=== PATIENT | female | born 1990 | race Caucasian/White ===

== ENCOUNTER 2018-03-02 15:41 | Outpatient (REF) | payer OTHER, SELFPAY ==
--- NOTE | 2018-03-02 15:00 | PAPFT_PTH ---
PATIENT: Angelica Mascorro LOC: [facility] U#:[id number] AGE/SX: 27/F ROOM: RE03/02/[address]: DORA Dunn : 1990 BED: DIS: 03/02/2018 SPEC #: [id number] RECD: 03/02/18 16:50 STATUS: DEEDEE RECarla #: [id number] JAY: 03/02/18 15:[address]: Courtney Chen DEPT: [facility] Cytology RECD BY: Sharlene Horowitz ENTERED: 03/02/18 16:50 SP TYPE: PAPFT PRIETO DR: Bess Day APRN Tissues: 1 - CX/ENDOCX FOR PAP SMEARS Procedures: PAP THIN PREP/UVM Screening Comments: [id number]
== END 2018-03-02 16:01 ==
LOC: LBN 15:41
PROVIDERS: PCP Nurse Practitioner; Visit Provider Nurse Practitioner Family
DX: Z12.4 Encounter for screening for malignant neoplasm of cervix (principal)
CPT/HCPCS: 88142

== ENCOUNTER 2022-06-04 20:48 | Emergency (ER) | payer BC, SELFPAY ==
[2022-06-04 20:50] VITALS: BP 139/78; PULSE 91; RESP 18; TEMP 36.3; O2SAT 100
--- NOTE | 2022-06-04 21:17 | ED.GENADUL_ITS ---
Discharge Plan Disposition Patient Disposition: Home Condition: Stable Discharge Details Clinical Impression: Pharyngitis Primary Care Provider: Morena Dailey ED Provider: Elsy Olivares Discharge Instructions Instructions: Pharyngitis (ED) Additional Instructions: Gargle with warm salt water up to 3 times daily as needed. Please take Tylenol or Ibuprofen with food every 4-6 hours as needed for pain and swelling. You are given a steroid here which should help with the swelling the next 3 days. Your strep swab COVID and flu are negative. Follow up with primary care provider in 3-5 days. Return to ED sooner if any worsening or concerns. Increase oral fluids. Medical Decision Making 31-year-old female presents to the ER with chief complaint of swelling of uvula which she noticed on Monday morning. She also noted some erythemic posterior oropharynx. Today she noticed a little white bump on her uvula. She does have some left ear pain. It is occluded by cerumen. No fever no productive cough. She has had 1 booster for COVID. She is speaking in full sentences lungs are clear to auscultation bilaterally. 10 mg dexamethasone ordered p.o., ibuprofen rapid strep and flu and COVID swab. Strep, flu COVID-negative. Do suspect pharyngitis. Instructed on home care and follow-up care discussed tricked return instructions. This text was generated using [employer] dictation system, please disregard any oddities of phrase or misspellings. HPI General Mode of arrival: ambulatory . Date/Time Provider Initiated Documentation: 06/04/22 20:59 . Limitations to Documentation: no limitations . Information obtained by: patient, RN notes reviewed and old records reviewed . HPI Narrative: 31-year-old female presents to the ER with chief complaint of swelling of uvula which she noticed on Monday morning. She also noted some erythemic posterior oropharynx. Today she noticed a little white bump on her uvula. She does have some left ear pain. It is occluded by cerumen. No fever no productive cough. She has had 1 booster for COVID. She is speaking in full sentences lungs are clear to auscultation bilaterally. Related Data Allergies Allergy/AdvReac Type Severity Reaction Status Date / Time No Known Drug Allergies Allergy Unverified 06/04/22 20:58 General Stated Complaint: GenMedical MARIAH: 4 Review of Systems All systems reviewed & are unremarkable except as noted in HPI and below ENT Ears, Nose, Mouth, and Throat: Reports as per HPI, Reports sore throat and Reports throat swelling Allergic/Immunologic Allergic/Immunologic: Reports throat swelling PFS All Active Problems (Updated 06/04/22 @ 21:49 by Elsy Olivares NP) Pharyngitis (Acute) Oral contraceptive pill surveillance (Acute 06/02/14) Medical History Adult BMI > 30 Family History Mother No problems noted. Father Essential hypertension Brother Asthma Grandfather No problems noted. Grandfather , Lung CA? at age 70. Personal history of malignant neoplasm Lung CA? Grandmother No problems noted. Grandmother No problems noted. Social History Smoking/Tobacco Use Status: Never Smoking risk assessment performed?: Yes Alcohol Intake: never Drug use: Never Substance use type: does not use Do you feel safe in your relationship?: Yes Exam Narrative Exam Narrative: Constitutional: Alert and oriented x3. Appears stated age. Normal body habitus. Head: Normocephalic, no trauma. Eyes: Pupils PERRL, Red reflex noted, EOM's intact. Eyelids symmetrical without lesions, discharge, or swelling. ENT: Left tympanic membrane within normal limits, right tympanic membrane not visualized occluded with cerumen. No mastoid TTP, swelling, or erythema, Nasal turbinates WNL, no nasal discharge. Normal dentition, Posterior pharynx erythemic no exudate. Tonsils 2+ bilaterally, small white spot on uvula. Chest: RRR, Normal S1, S2, distal pulses intact. Resp: Lungs clear to auscultation bilaterally, no wheezes, rales, or rhonchi. Hematologic/Lymphatic: No ecchymosis, no lymphadenopathy. Course Vital Signs Vital signs: Vital Signs Temperature 36.3 C L 06/04/22 20:50 Pulse 91 H 06/04/22 20:50 Respiratory Rate 18 06/04/22 20:50 Blood Pressure 139/78 06/04/22 20:50 Pulse Oximetry 100 06/04/22 20:50 Temperature 36.3 C L 06/04/22 20:50 Temperature Source Skin 06/04/22 20:50 Pulse 91 H 06/04/22 20:50 Respiratory Rate 18 06/04/22 20:50 Respiratory Effort 06/04/22 20:54 Respiratory Depth Normal 06/04/22 20:54 Respiratory Pattern Normal 06/04/22 20:54 Blood Pressure 139/78 06/04/22 20:50 Blood Pressure Position Sitting 06/04/22 20:50 Pulse Oximetry 100 06/04/22 20:50 Oxygen Delivery Method Room Air 06/04/22 20:50 Oxygen Flow Rate 0 06/04/22 20:50 Pain Level 0 06/04/22 20:50
[2022-06-04] MEDS: Dexamethasone 10 MG/ML VIAL PO (21:37)
[2022-06-04] MEDS: Ibuprofen 600 MG TAB PO (21:38)
== END 2022-06-04 21:55 | disposition home or self-care (01) ==
PROVIDERS: Emergency Provider Registered Nurse Emergency; PCP Internal Medicine
DX: J02.9 Acute pharyngitis, unspecified (principal); H92.02 Otalgia, left ear; Z20.822 Contact with and (suspected) exposure to COVID-19
CPT/HCPCS: 87880; 99283; 99284; J1100

== ENCOUNTER 2022-09-16 01:24 | Outpatient (CLI) | payer BC, MEDICAID, SELFPAY ==
[2022-09-16 10:22] LABS: Panorama Kit Sent via Fed Ex
[2022-09-16 10:23] LABS: Lab Add On Test DONE
[2022-09-16 10:24] LABS: Abs Immature Grans 0.02 10^3/uL (0.0-0.06); Absolute Basophil Count 0.06 10^3/uL (0.0-0.2); Absolute Eosinophil Count 0.06 10^3/uL (0.0-0.7); Absolute Monocyte Count 0.48 10^3/uL (0.1-0.8); Absolute Neutrophil Count 7.33 10^3/uL (1.2-6.7); Basophils % 0.6; Eosinophils % 0.6; HCT 35.7 % (36.0-46.0); HGB 11.9 g/dL (11.2-15.7); Immature Grans % 0.2; Lymphocytes % 20.1; MCH 27.9 pg (27.0-33.0); MCHC 33.3 % (32.0-36.0); MCV 84 fL (80-95); MPV 10.3 fL (8.0-11.0); Monocytes % 4.8; Neutrophils % 73.7; Platelet Count 270 10^3/uL (130-400); RBC 4.26 10^6/uL (3.93-5.22); RDW 13.2 % (11.7-14.6); RDW-SD 40.1 fL; WBC 9.95 10^3/uL (4.4-10.8)
[2022-09-16 10:34] LABS: Glucose,1 Hr (Glucola) 112 mg/dL (80-140)
[2022-09-16 11:01] LABS: ALT 16 U/L (14-59); AST 10 U/L (15-37); Albumin 3.3 g/dL (3.4-5.0); Alkaline Phosphatase 89 U/L (46-116); Anion Gap 7.5 mmol/L (3-11); BUN 7 mg/dL (7-18); Bilirubin, Total 0.2 mg/dL (0.2-1.0); CO2 24.5 mmol/L (21.0-32.0); CREATININE 0.8 mg/dL (0.55-1.02); Calcium 9.1 mg/dL (8.5-10.1); Chloride 105 mmol/L (98-107); Estimated GFR 102.22 (mL/min/1.73m2); Glucose 114 mg/dL (74-106); Potassium 3.5 mmol/L (3.5-5.1); Sodium 137 mmol/L (136-145)
[2022-09-16 11:13] LABS: TSH (W/Ref FT4) 1.26 uIU/mL (0.36-3.74)
[2022-09-17 09:40] LABS: HIV-1/2 Ag & Ab Screen Negative (Negative)
[2022-09-19 09:21] LABS: Hepatitis B Surface Ag Negative (Negative)
[2022-09-19 10:04] LABS: Hepatitis C Ab w Rflx HCV PCR Negative (Negative)
[2022-09-19 11:32] LABS: Varicella IgG Antibody Positive (See Note)
[2022-09-19 11:38] LABS: Rubella IgG Ab (UVM) Positive (See Note)
[2022-09-19 19:58] LABS: Syphilis IgG w/Reflex Nonreactive (Nonreactive)
== END 2022-09-16 01:25 | disposition home or self-care (01) ==
LOC: LBO 01:24
PROVIDERS: Advanced Practice Midwife; PCP Internal Medicine; Visit Provider Advanced Practice Midwife
DX: Z34.91 Encounter for supervision of normal pregnancy, unspecified, first trimester (principal); Z3A.10 10 weeks gestation of pregnancy
CPT/HCPCS: 36415; 80053; 82950; 86787; 86803; 86850; 86900; 86901; 87340; 87389; 84443; 85025; 86762; 86780

== ENCOUNTER 2022-09-16 10:10 | Outpatient (REF) | payer BC, MEDICAID, SELFPAY ==
--- NOTE | 2022-09-16 09:40 | PAPFT_PTH ---
PATIENT: Angelica Mascorro LOC: [facility] U#:[id number] AGE/SX: 31/F ROOM: RE09/16/[address]: Iris Nguyen CNM : 1990 BED: DIS: 09/16/2022 SPEC #: [id number] RECD: 09/16/22 15:47 STATUS: DEEDEE REQ #: [id number] JAY: 09/16/22 09:[address]: Iris Nguyen DEPT: [facility] Cytology RECD BY: Sharlene Horowitz ENTERED: 09/16/22 15:48 SP TYPE: PAPFT OTHR DR: Morena Dailey Tissues: 1 - CX/ENDOCX FOR PAP SMEARS Procedures: PAP THIN PREP/UVM Screening Comments: [id number] (CHLAMYDIA/GC)
[2022-09-16 11:46] LABS: *AMPHETAMINES SCREEN URINE Negative (Negative); *BARBITURATES SCREEN URINE Negative (Negative); *BENZODIAZEPINES SCREEN URINE Negative (Negative); Cannabinoids THC Negative (Negative); Cocaine Screen,Urine Negative (Negative); METHADONE URINE SCREEN Negative (Negative); OPIATES URINE SCREEN Negative (Negative)
[2022-09-16 11:48] LABS: Tricyclic Antidepressants Negative (Negative)
[2022-09-19 14:26] LABS: Chlamydia Result Negative (Negative); GC Result Negative (Negative)
[2022-09-22 12:48] LABS: Buprenorphine Negative ng/mL (Cutoff: 5.0); Norbuprenorphine Negative ng/mL (Cutoff: 2.5)
== END 2022-09-16 10:11 | disposition home or self-care (01) ==
LOC: LBN 10:10
PROVIDERS: PCP Internal Medicine; Visit Provider Advanced Practice Midwife
DX: Z34.91 Encounter for supervision of normal pregnancy, unspecified, first trimester (principal); Z11.3 Encounter for screening for infections with a predominantly sexual mode of transmission; Z12.4 Encounter for screening for malignant neoplasm of cervix; R87.612 Low grade squamous intraepithelial lesion on cytologic smear of cervix (LGSIL); Z3A.10 10 weeks gestation of pregnancy
CPT/HCPCS: 80307; 80348; 87491; 87591; 88142; 87086

== ENCOUNTER 2023-01-06 02:44 | Outpatient (CLI) | payer BC, MEDICAID, SELFPAY ==
[2023-01-06 12:36] LABS: HCT 34.9 % (36.0-46.0); HGB 11.8 g/dL (11.2-15.7); MCH 28.7 pg (27.0-33.0); MCHC 33.8 % (32.0-36.0); MCV 85 fL (80-95); MPV 9.9 fL (8.0-11.0); Platelet Count 231 10^3/uL (130-400); RBC 4.11 10^6/uL (3.93-5.22); RDW 13.4 % (11.7-14.6); RDW-SD 41.2 fL; WBC 13.35 10^3/uL (4.4-10.8)
[2023-01-06 13:54] LABS: Glucose,1 Hr (Glucola) 157 mg/dL (80-140)
== END 2023-01-06 02:45 | disposition home or self-care (01) ==
LOC: LBO 02:45
PROVIDERS: PCP Internal Medicine; Visit Provider Advanced Practice Midwife
DX: Z34.92 Encounter for supervision of normal pregnancy, unspecified, second trimester (principal); Z3A.26 26 weeks gestation of pregnancy
CPT/HCPCS: 36415; 82950; 85027

== ENCOUNTER 2023-02-14 03:09 | Outpatient (CLI) | payer BC, MEDICAID, SELFPAY ==
[2023-02-14 09:54] LABS: Glucose 1 Hour 197 mg/dL
== END 2023-02-14 03:10 | disposition home or self-care (01) ==
PROVIDERS: Advanced Practice Midwife; PCP Internal Medicine; Visit Provider Advanced Practice Midwife
DX: Z34.90 Encounter for supervision of normal pregnancy, unspecified, unspecified trimester (principal); Z3A.00 Weeks of gestation of pregnancy not specified
CPT/HCPCS: 36415; 82951

== ENCOUNTER → 2023-03-03 00:44 | Outpatient (CLI) | payer BC, MEDICAID, SELFPAY ==
--- NOTE | 2023-03-03 07:45 | DI.US_ITS ---
Exam(s) US OB REBEKA WEIGHT EXAM: US OB REBEKA WEIGHT CLINICAL HISTORY: presentation and EFW/REBEKA,O99.213. TECHNIQUE: Transabdominal obstetrical ultrasound performed. COMPARISON: US US OB 2-3 TRIMESTER from 11/11/2022 US US OB F/U FACIAL/LVOT/RVOT from 11/24/2022 US US OB F/U FACIAL/LVOT/RVOT from 01/06/2023 FINDINGS:: Number of fetuses: One. position: Vertex. Placental location: Posterior. No evidence of previa. BIOMETRIC DATA: BPD: 89mm = 36+ 1 weeks HC: 331mm = 37+ 5 weeks AC: 315mm = 35+3 weeks FL: 72 mm = 37+ 0 weeks EFW: 2865 Gms = 85% Composite Age: 36+ 4 weeks ISABELL: [birth year] March 2023 Heart Rate: 130BPM Amniotic fluid index: 18.4 cm. Amount of fluid is visually within normal limits. IMPRESSION: size at the high normal range. Weight within normal range. DATA REPOSITORY:
--- NOTE | 2023-03-07 13:11 | ANES.CON_ITS ---
General Date of Service Date of Service: 03/07/23 Reason for Consult Requesting Provider: Iris Nguyen How Consult Conducted:: Seen in Office Reason for Consult:: Gestational diabetes and elevated BMI (>44): 2 Para 0 with EDC of 04/09/2023. OB staff anticipate induction 1 week prior to EDC. Met with patient who has moderate anxiety regarding labor process. Pt is open to all pain resources to include nitrous and potential Epidural placement. Explained to patient given her BMI that Epidural placement may be potentially technically difficult which she verbalized understanding of. Prior to this , pt had no significant medical issues. Pt has not received general anesthesia previously. Pt has no family history of anesthesia issues. Consult Recommendation after Review:: Elevated BMI potentially open to pain management with Epidural during labor process. Anticipate epidural to be technically difficult d/t BMI of patient. Height: 5 ft 9 in Weight: 138.799 kg Body Mass Index (BMI): 45.1 Meds Allergies and Home Medications Allergies Allergy/AdvReac Type Severity Reaction Status Date / Time strawberry Allergy Intermediate Hives Verified 03/07/23 12:56 No Known Drug Allergies Allergy Verified 03/07/23 12:56 Home Medication Medication Instructions Recorded vits no.126-ferrous fum 1 tab PO DAILY 08/29/22 28 mg iron-folic acid 800 mcg tablet (Classic ) aspirin 81 mg tablet,delayed 81 mg PO DAILY 01/11/23 release (Adult Low Dose Aspirin) PFSH Active Problems Active Problems: Problem Status Onset Code Non-compliant patient O09.899, Z91.199 Anxiety F41.9 Gestational diabetes O24.419 Obesity affecting in third trimester, antepartum O99.213 LGSIL on Pap smear of cervix R87.612 Z34.90 Migraine aura without headache G43.109 Nausea/vomiting in O21.9 Early stage of Z34.90 Medical History Medical History Adult BMI > 30 Tobacco Smoking/Tobacco Use Status: Never Alcohol Alcohol Intake: never Substance Use Substance use: Never Substance use type: does not use Prental History History 2 Para 0 Hx # Term Pregnancies 0 Multiple births 0 Hx # Pregnancies 0 Ectopic pregnancies 0 AB induced 1 Hx Number of Living Children 0 AB spontaneous 0 Past Pregnancies Del. Date GA/Weeks # Preg Succ Route Wgt Sex Labor Lgth Anesth esia Location Prov Complic 01/12/22 6 No Delivery Date: 01/12/22 Last Updated by: Iris Nguyen CNM ETOP W/O complications Vital Signs & Lab Results Point of Care Results Nursing Point of Care Results: No Data to Display Lab Results Blood Type / Crossmatch: No Data to Display Complete Blood Count: No Data to Display Complete Metabolic Panel: No Data to Display Liver Function Panel: No Data to Display Coagulation Panel: No Data to Display Cardiac Panel: No Data to Display Arterial Blood Gas: No Data to Display Venous Blood Gas: No Data to Display Pancreas Panel: No Data to Display Thyroid Panel: No Data to Display Infectious Disease: No Data to Display Blood Cultures: No Data to Display Toxicology Panel: No Data to Display Panel: No Data to Display Anesthesia Note Date of Service: March 07, 2023
[2023-03-07 13:31] VITALS: BMI 45.1
== END ==
PROVIDERS: PCP Internal Medicine; Visit Provider Advanced Practice Midwife
DX: O99.213 Obesity complicating pregnancy, third trimester (principal)
CPT/HCPCS: 76816

== ENCOUNTER 2023-03-14 13:24 | Outpatient (CLI) | payer BC, MEDICAID, SELFPAY ==
[2023-03-14 14:03] VITALS: BP 123/84; PULSE 88
[2023-03-14 14:14] VITALS: BP 123/84; PULSE 88; TEMP 36.8
--- NOTE | 2023-03-15 09:13 | W.OBNST ---
Date of service: 03/14/23 Time of Service: 13:30 NST Evaluation Reason for NST Reasons for Nonstress Test: GDM-DIET CONTROLLED Gestational Age Gestational Age in Weeks and Days: 36 Weeks and 2Days Test and Monitor Explained Test/Monitor Explained: Test Explained, Monitor Explained and Patient Verbalized Understanding Vital Signs Blood Pressure: 123/84 Pulse: 88 Temperature: 98.2 F NST Information Time on Monitor: 13:29 Date off Monitor: 03/14/23 Time off Monitor: 14:04 NST Interventions: None Contraction Frequency: None NST Evaluation Patient States Movement: Present FHR Baseline: 135 Variability: Moderate 6-25 bpm Accelerations: 15x15 Decelerations: None NST Results: Reactive Note Ultrasound Done: N/A. NST Note Note: See record NST Reviewed and Verified by: Nieves Espinoza
[2023-03-15 09:15] VITALS: BP 123/84; PULSE 88; TEMP 36.8
== END 2023-03-14 14:15 ==
LOC: BCD 13:24 → OBS 13:36
PROVIDERS: PCP Internal Medicine; Visit Provider Obstetrics & Gynecology
DX: O24.410 Gestational diabetes mellitus in pregnancy, diet controlled (principal); Z3A.36 36 weeks gestation of pregnancy
CPT/HCPCS: 59025; 87081

== ENCOUNTER 2023-03-14 13:41 | Outpatient (REF) | payer BC, MEDICAID, SELFPAY ==
[2023-03-14 15:18] LABS: *AMPHETAMINES SCREEN URINE Negative (Negative); *BARBITURATES SCREEN URINE Negative (Negative); *BENZODIAZEPINES SCREEN URINE Negative (Negative); Cannabinoids THC Negative (Negative); Cocaine Screen,Urine Negative (Negative); METHADONE URINE SCREEN Negative (Negative); OPIATES URINE SCREEN Negative (Negative); Tricyclic Antidepressants Negative (Negative)
[2023-03-17 08:38] LABS: Buprenorphine Negative ng/mL (Cutoff: 5.0); Norbuprenorphine Negative ng/mL (Cutoff: 2.5)
== END 2023-03-14 13:42 | disposition home or self-care (01) ==
LOC: LBN 13:41
PROVIDERS: PCP Internal Medicine; Visit Provider Obstetrics & Gynecology
DX: Z34.93 Encounter for supervision of normal pregnancy, unspecified, third trimester (principal)
CPT/HCPCS: 80307; 80348

== ENCOUNTER 2023-03-22 07:26 | Outpatient (CLI) | payer BC, MEDICAID, SELFPAY ==
[2023-03-22 12:52] VITALS: BP 122/74; PULSE 76
[2023-03-22 13:09] VITALS: BP 122/74; PULSE 76; TEMP 36.7
== END 2023-03-22 13:05 | disposition home or self-care (01) ==
LOC: BCD 07:30 → OBS 12:47
PROVIDERS: PCP Internal Medicine; Visit Provider Obstetrics & Gynecology Gynecology
DX: O24.410 Gestational diabetes mellitus in pregnancy, diet controlled (principal); O99.213 Obesity complicating pregnancy, third trimester; Z3A.37 37 weeks gestation of pregnancy
CPT/HCPCS: 59025

== ENCOUNTER 2023-03-28 02:18 | Outpatient (CLI) | payer BC, MEDICAID, SELFPAY ==
--- NOTE | 2023-03-28 08:00 | DI.US_ITS ---
Exam(s) US OB REBEKA WEIGHT EXAM: US OB REBEKA WEIGHT CLINICAL HISTORY: growth, last 85%,gest diabetes,O24.419. TECHNIQUE: Transabdominal obstetrical ultrasound performed. COMPARISON: US US OB REBEKA WEIGHT from 03/03/2023 FINDINGS: Number of fetuses: 1 position: Cephalic. Placental location: There is a grade 3 posterior placenta. No evidence of previa. BIOMETRIC DATA: BPD: 9.64 cm, 39 weeks 3 days. HC: 34.47 cm, 39 weeks 6 days AC: 35.82 cm, 39 weeks 5 days FL: 7.68 cm, 39 weeks 2 days EFW: 3837.56 g, 8 lb 7 oz, 90.3 % Composite Age: 39 weeks 4 days ISABELL: 03/31/2021 Heart Rate: 131 bpm Amniotic fluid index: 20.78 cm. Visually, amount of fluid is within normal limits. IMPRESSION: 1. Single live intrauterine gestation as above. 2. Estimated weight is 3838gms. This is the 90th percentile. 3. Amniotic fluid index is 20.8 cm. Visually within normal limits. DATA REPOSITORY:
[2023-03-28 11:56] VITALS: BP 116/71; PULSE 76; TEMP 36.6
[2023-03-28 12:06] VITALS: BP 116/71; PULSE 76
== END 2023-03-28 12:15 ==
LOC: DI 02:18 → OBS 11:55
PROVIDERS: PCP Internal Medicine; Visit Provider Advanced Practice Midwife
DX: O24.410 Gestational diabetes mellitus in pregnancy, diet controlled (principal)
CPT/HCPCS: 76816

== ENCOUNTER 2023-03-28 07:51 | Outpatient (CLI) | payer BC, MEDICAID, SELFPAY | END 2023-03-28 12:30 | LOC: BCD 07:54 → NUR 11:53 | PROVIDERS: PCP Internal Medicine; Visit Provider Obstetrics & Gynecology Gynecology | DX: O24.410 Gestational diabetes mellitus in pregnancy, diet controlled (principal); Z3A.38 38 weeks gestation of pregnancy | CPT/HCPCS: 59025 ==

== ENCOUNTER 2023-04-03 16:43 | Inpatient (IN) | payer BC, MEDICAID, SELFPAY ==
[2023-04-03 16:56] VITALS: BP 141/81; PULSE 93; RESP 18; TEMP 36.8; O2SAT 18
[2023-04-03 17:44] LABS: HCT 33.8 % (36.0-46.0); HGB 11.2 g/dL (11.2-15.7); MCH 27.4 pg (27.0-33.0); MCHC 33.1 % (32.0-36.0); MCV 83 fL (80-95); MPV 12.1 fL (8.0-11.0); Platelet Count 177 10^3/uL (130-400); RBC 4.09 10^6/uL (3.93-5.22); RDW 13.5 % (11.7-14.6); RDW-SD 39.9 fL; WBC 8.62 10^3/uL (4.4-10.8)
[2023-04-03] MEDS: miSOPROStol 25 MCG TAB PO (17:45)
--- NOTE | 2023-04-03 17:48 | HPE_ITS ---
Date of service: 04/03/23 Time of Service: 05:30 Assessment and Plan Assessment and plan (1) Gestational diabetes: Status: Acute Assessment and plan: Plan for cytotec for induction. Anesthesia aware of her due to expected difficult epidural placement. FS have been completely normal without starting insulin so will manage as a routine patient. OB-HPI Labor/Delivery History of Present Illness Reason for Visit: GDM Chief Complaint: Scheduled Induction of Labor Indication for Induction: Gestational Diabetes. ISABELL Calculator Estimated Delivery Date Method Current WG Current Estimate 04/09/23 LMP (Certain) 39w 2d Other Estimates 04/09/23 Ultrasound #1 39w 2d History of Present Expected Delivery Route/Plan - CNM, to care @ 33 wks d/t GDM & anxiety FOB - [facility] PRICE Specific Issues/Plan 1. BMI 44, early tplyxpv=213. Declined level 2 kira sono 2. GDM: 1-hr GTT at 26 week - 157, 3-hr GTT = 99,197,129 (test stopped @ 2 hrs), declines testing at home, accepts CGM 02/23 - US for EFW and REBEKA 03/03 (34wks): 85%ile, normal rebeka, vtx - Declines dietary referral, says she is eating a very healthy diet. - CGM and she is unable to obtain another. Will plan to check fasting level and 1 other throughout the day 4. cfDNA- low risk x5 female fetus. Declines CF/SMA and AFP 4. Pap LGSIL, colpo recommended, pt wants to do colpo PP 5. Anatomy US not complete, repeat 11/24- still incomplete, Angelica declines further testing - EFW 18w5d 97%, placenta 2.98cm from os - At 20+4 wks placental tip 3.1 cm from cvx os, unable to visualize feet & posterior fossa - Posterior fossa not visualized, offered Level 2 US and patient declines. Review of Systems Constitutional Constitutional: Reports system reviewed and no additional complaints, except as documented Gastrointestinal Gastrointestinal: Denies nausea and Denies vomiting Genitourinary Genitourinary: Reports system reviewed and no additional complaints, except as documented Musculoskeletal Comments: No regular contractions PFSH All Active Problems (Updated 04/04/23 @ 09:28 by Adamaris Negrete MD) Encounter for induction of labor (Acute) Anxiety (Chronic) Gestational diabetes (Acute) Obesity affecting in third trimester, antepartum (Acute) LGSIL on Pap smear of cervix (Acute) (Acute) Migraine aura without headache (Acute) Nausea/vomiting in (Acute) Early stage of (Acute) Medical History (Updated 04/04/23 @ 09:28 by Adamaris Negrete MD) Adult BMI > 30 Family History Father Essential hypertension Brother Asthma Grandfather , Lung CA? at age 70. No problems noted. Grandmother COPD (chronic obstructive pulmonary disease) Diabetes Mother Breast cancer Hyperlipidemia Mother had stent placed Social History Smoking/Tobacco Use Status: Never Smoking risk assessment performed?: Yes Alcohol Intake: never Drug use: Never Substance use type: does not use Housing: house Do you feel safe at home: Yes Do you feel safe in your relationship?: Yes History History 2 Para 0 Hx # Term Pregnancies 0 Multiple births 0 Hx # Pregnancies 0 Ectopic pregnancies 0 AB induced 1 Hx Number of Living Children 0 AB spontaneous 0 Past Pregnancies Del. Date GA/Weeks # Preg Succ Route Wgt Sex Labor Lgth Anesth esia Location Prov [facility] 01/12/22 6 No Delivery Date: 01/12/22 Last Updated by: Iris Nguyen CNM ETOP W/O complications Meds Allergies and Home Medications Allergies Allergy/AdvReac Type Severity Reaction Status Date / Time strawberry Allergy Intermediate Hives Verified 04/03/23 16:55 No Known Drug Allergies Allergy Verified 04/03/23 16:55 Home Medications Medication Instructions Recorded Confirmed Type vits no.126-ferrous fum 1 tab PO DAILY 08/29/22 04/03/23 History 28 mg iron-folic acid 800 mcg tablet (Classic ) aspirin 81 mg tablet,delayed 81 mg PO DAILY 01/11/23 04/03/23 History release (Adult Low Dose Aspirin) Exam Physical Exam Vital signs: Temp Pulse Resp BP Pulse Ox 98.2 F 93 H 18 141/81 H 18 L 04/03/23 16:56 04/03/23 16:56 04/03/23 16:56 04/03/23 16:56 04/03/23 16:56 Detailed Labor and Delivery Exam Dilation: 0 Effacement (%): 30 station: -3 Consistency: soft Glover Score: Cervical Points Exam 0 1 2 3 Dilation Closed 1-2cm 3-4 cm 5-6cm Effacement 0-30% 40-50% 60-70% 80% Consistency Firm Medium Soft Station -3 -2 -1,0 +1,+2 Position Posterior Mid Anterior Amniotic Membrane Status: Intact Fetus A Heart Rate Baseline: 135 Monitor Accelerations: 15 X 15 Monitor Decelerations: None Variability: Moderate (6-25 BPM) Presentation: Vertex Detailed HEENT Exam Head: Present normocephalic and atraumatic Detailed Abdominal Exam Comments: gravid, nontender Detailed Neurological Exam Neurological: Present alert, oriented X3 and CN II-XII intact DetailedPsychiatric Exam Psychiatric: Present normal affect, normal thought process and cooperative Results Results Group Beta Strep: Negative Blood Type: O+ Rubella Status: Immune Varicella Immunity: Immune Abnormal Lab Findings: Abnormal Labs 04/03/23 17:25 Hct 33.8 L MPV 12.1 H Ultrasound OB Ultrasound for presentation. (Vertex) Indication: induction Exam complete. Risk Assessment Risk for Shoulder Dystocia Historical/Initial OB: POSITIVE FOR: Pre- BMI>30; NEGATIVE FOR: Pelvic Abnormality, Previous Shoulder Dystocia or Previous Macrosomia Date/Initial: 09/16/22 Risk for Pre-Eclampsia Date Initiated/Initials: 09/15/22 KH Yes, if one or more: POSTIVE FOR: Chronic HTN; NEGATIVE FOR: Hx Pre-E/Gest HTN, Multiple Gestation, Pre-gestational DM, Renal Disease, Systemic Lupus or APA Syndrome Yes, if 2 or more: POSITIVE FOR: Nulliparity and BMI>30; NEGATIVE FOR: Age>= 35 yrs, >10yr btwn pregnancies, ethinicty, Mother/Sister w/ Pre-E or Previous IUGR Risk for Post- Hemorrhage Initial: NEGATIVE FOR: Multiple Gestation, Previous PPH, Known Clotting Deficiency, Grand Multiparity or Anticoagulation Risks Reviewed Risks Reviewed Upon Admission: Yes
[2023-04-03 18:59] VITALS: BP 137/84; PULSE 85; RESP 16; TEMP 36.7
[2023-04-03 21:05] VITALS: BP 120/75; PULSE 105; TEMP 36.7
[2023-04-04] VITALS (54 sets, daily range): BP systolic 95–145; BP diastolic 52–84; PULSE 0–113; RESP 17; TEMP 36.4–36.9; O2SAT 97–98
[2023-04-04] MEDS: miSOPROStol 25 MCG TAB PO ×2 (06:04→10:26)
--- NOTE | 2023-04-04 09:22 | W.PM.OBNL1 ---
Date of service: 04/04/23 Time of Service: 09: Informed Consent Informed Consent: Augmentation of Labor, Induction of Labor (Cervical ripening.) and Regional Anesthesia (Pt desires epidural in labor.) Pelvic Exam Dilation: 1 (Fingertip.) Effacement (%): 25 station: -3 Cervix Position: mid Consistency: soft Vaginal Exam Presentation: Cephalic Contractions Monitor Mode: Palpation (Pt currently not wearing external tocometer.) Intensity: Mild Fetus A Monitor: Doppler Heart Rate Baseline: 145 Presentation: Cephalic FHR Rhythm: Regular Characteristics: Normal Assessment and Plan Assessment and plan (1) Gestational diabetes: Status: Acute Qualifiers: Gestational diabetes mellitus control: diet-controlled Trimester: third trimester Qualified Code(s): O24.410 - Gestational diabetes mellitus in , diet controlled (2) Encounter for induction of labor: Status: Acute Assessment and plan: s/p Misoprostil x2 overnight. Will administer one more dose and then begin augmentation of labor with Oxytocin. Pt agreeable to the plan. Anesthesia has been notified of the plan and will see pt for further discussion regarding labor analgesia. Objective Abnormal lab results 04/03/23 Range/Units 17:25 Hct 33.8 L (36.0-46.0) % MPV 12.1 H (8.0-11.0) fL Temp Pulse Resp BP Pulse Ox 98.4 F 93 H 17 135/79 98 04/04/23 07:40 04/04/23 07:40 04/04/23 07:40 04/04/23 07:40 04/04/23 05:51 Laboratory Results WBC 8.62 10^3/uL (4.4-10.8) 04/03/23 17:25 RBC 4.09 10^6/uL (3.93-5.22) 04/03/23 17:25 Hgb 11.2 g/dL (11.2-15.7) 04/03/23 17:25 Hct 33.8 % (36.0-46.0) L 04/03/23 17:25 MCV 83 fL (80-95) 04/03/23 17:25 MCH 27.4 pg (27.0-33.0) 04/03/23 17:25 MCHC 33.1 % (32.0-36.0) 04/03/23 17:25 RDW 13.5 % (11.7-14.6) 04/03/23 17:25 Plt Count 177 10^3/uL (130-400) 04/03/23 17:25 MPV 12.1 fL (8.0-11.0) H 04/03/23 17:25 Patient ABO/Rh O Positive 04/03/23 17:25 Antibody Screen NEGATIVE 04/03/23 17:25 Vital Signs Reviewed: Yes Objective Narrative Objective Narrative: Pt will have another dose of Misoprostil and be evaluated by anesthesia for regional anesthesia placement when in active labor. Subjective Patient Reports: New Complaints (Painful contractions. ) Interval history since last seen: S/P Misoprostil dose #2 @ 0600. Pt reports small amount of dark brown discharge during the night. No loss of fluid. Appetite OK Results Hemoglobin/Hematocrit: Hgb 11.2 g/dL (11.2-15.7) 04/03/23 17:25 Hct 33.8 % (36.0-46.0) L 04/03/23 17:25 Abnormal Lab Findings: Abnormal Labs 04/03/23 17:25 Hct 33.8 L MPV 12.1 H Procedure Procedures: Cervical Ripening (will have 3rd dose this am.) Cervical Ripening: Misoprostol
--- NOTE | 2023-04-04 12:48 | W.PM.OBNL1 ---
Date of service: 04/04/23 Time of Service: 12:49 Informed Consent Informed Consent: Augmentation of Labor, Induction of Labor (Cervical ripening.) and Regional Anesthesia (Pt desires epidural in labor.) Pelvic Exam Dilation: 1 Effacement (%): 40 station: -3 Cervix Position: mid Consistency: soft Fetus A Heart Rate Baseline: 125 Variability: Moderate (6-25 BPM) Categories: Category I Accelerations: 15 X 15 Decelerations: None Amniotic Membrane Status: Intact Assessment and Plan Assessment and plan (1) Gestational diabetes: Status: Acute Qualifiers: Gestational diabetes mellitus control: diet-controlled Trimester: third trimester Qualified Code(s): O24.410 - Gestational diabetes mellitus in , diet controlled (2) Encounter for induction of labor: Status: Acute Assessment and plan: Slight cervical change since last night. Discussed another dose of cytotec vs starting pitocin and she will let us know what her preference is. Objective Abnormal lab results 04/03/23 Range/Units 17:25 Hct 33.8 L (36.0-46.0) % MPV 12.1 H (8.0-11.0) fL Temp Pulse Resp BP Pulse Ox 98.4 F 90 17 135/74 98 04/04/23 10:30 04/04/23 10:30 04/04/23 10:30 04/04/23 10:30 04/04/23 05:51 Laboratory Results WBC 8.62 10^3/uL (4.4-10.8) 04/03/23 17:25 RBC 4.09 10^6/uL (3.93-5.22) 04/03/23 17:25 Hgb 11.2 g/dL (11.2-15.7) 04/03/23 17:25 Hct 33.8 % (36.0-46.0) L 04/03/23 17:25 MCV 83 fL (80-95) 04/03/23 17:25 MCH 27.4 pg (27.0-33.0) 04/03/23 17:25 MCHC 33.1 % (32.0-36.0) 04/03/23 17:25 RDW 13.5 % (11.7-14.6) 04/03/23 17:25 Plt Count 177 10^3/uL (130-400) 04/03/23 17:25 MPV 12.1 fL (8.0-11.0) H 04/03/23 17:25 Patient ABO/Rh O Positive 04/03/23 17: Antibody Screen NEGATIVE 04/03/23 17:25 Vital Signs Reviewed: Yes Subjective Interval history since last seen: Feeling crampy and occasional upper uterine tightness. Had some dark bloody show earlier this am. Results Hemoglobin/Hematocrit: Hgb 11.2 g/dL (11.2-15.7) 04/03/23 17: Hct 33.8 % (36.0-46.0) L 04/03/23 17:25 Abnormal Lab Findings: Abnormal Labs 04/03/23 17: Hct 33.8 L MPV 12.1 H
[2023-04-04] MEDS: Lactated Ringers 1,000 ML 125 ML IV (14:12)
[2023-04-04] MEDS: Oxytocin/Normal Saline 30 UNIT/500 ML BAG 2 UNITS IV (14:13)
[2023-04-04] MEDS: Normal Saline Flush 10 ML SYR IVP (14:30)
--- NOTE | 2023-04-04 15:29 | W.PM.OBNL1 ---
Date of service: 04/04/23 Time of Service: 15:31 Informed Consent Informed Consent: Augmentation of Labor, Induction of Labor (Cervical ripening.) and Regional Anesthesia (Pt desires epidural in labor.) Assessment and Plan Assessment and plan (1) Encounter for induction of labor: Status: Acute Assessment and plan: Labor induction. Patient is status post 3 doses of misoprostol and is now currently on Pitocin for augmentation. We will continue her Pitocin to a maximum of 20 milliunits, and if no cervical change, Fitzgerald balloon for cervical ripening may be a good option. If, she progresses in labor, artificial rupture of membranes will be undertaken. All of her questions were answered. (2) Gestational diabetes: Status: Acute Assessment and plan: Continue to monitor blood glucose levels. Qualifiers: Gestational diabetes mellitus control: diet-controlled Trimester: third trimester Qualified Code(s): O24.410 - Gestational diabetes mellitus in , diet controlled (3) Obesity affecting in third trimester, antepartum: Status: Acute Objective Abnormal lab results 04/03/23 Range/Units 17:25 Hct 33.8 L (36.0-46.0) % MPV 12.1 H (8.0-11.0) fL Temp Pulse Resp BP Pulse Ox 98.4 F 87 17 130/84 98 04/04/23 14:48 04/04/23 15:27 04/04/23 14:48 04/04/23 14:48 04/04/23 05:51 Laboratory Results WBC 8.62 10^3/uL (4.4-10.8) 04/03/23 17:25 RBC 4.09 10^6/uL (3.93-5.22) 04/03/23 17:25 Hgb 11.2 g/dL (11.2-15.7) 04/03/23 17:25 Hct 33.8 % (36.0-46.0) L 04/03/23 17:25 MCV 83 fL (80-95) 04/03/23 17:25 MCH 27.4 pg (27.0-33.0) 04/03/23 17:25 MCHC 33.1 % (32.0-36.0) 04/03/23 17:25 RDW 13.5 % (11.7-14.6) 04/03/23 17:25 Plt Count 177 10^3/uL (130-400) 04/03/23 17: MPV 12.1 fL (8.0-11.0) H 04/03/23 17:25 Patient ABO/Rh O Positive 04/03/23 17: Antibody Screen NEGATIVE 04/03/23 17: Subjective Interval history since last seen: Patient seen and examined this afternoon. Plan of care ongoing discussed with the patient, and her family at length. She has a heart rate tracing that is a category 1 with good accelerations and moderate variability. Her Pitocin is currently at 4 milliunits with irregular contractions that she is not appreciating. Baby's been moving and active. Otherwise she is doing well. At her last cervical exam, cervix noted to be 1-1/2 cm, with the vertex high out of the pelvis. We discussed the opportunity for ongoing labor induction with Pitocin and if she progresses to the point that she is rupture ball, artificial rupture of membranes may be the next option. If she gets to a Pitocin of 20, without significant cervical change, then I would consider placing a Fitzgerald balloon for mechanical cervical ripening. All of her questions were answered to the best of my ability today. We also discussed ongoing pain management. At this point, she is reluctant to have an epidural placed, however she may benefit from having an ultrasound evaluation of her back with marking for the possibility of epidural if her pain warrants this, or if she were to need a spinal anesthesia for surgical delivery. All of her questions were answered. Results Hemoglobin/Hematocrit: Hgb 11.2 g/dL (11.2-15.7) 04/03/23 17: Hct 33.8 % (36.0-46.0) L 04/03/23 17:25 Abnormal Lab Findings: Abnormal Labs 04/03/23 17: Hct 33.8 L MPV 12.1 H
[2023-04-04] MEDS: Oxytocin/Normal Saline 30 UNIT/500 ML BAG 18 UNITS IV (19:32)
[2023-04-04] MEDS: Oxytocin/Normal Saline 30 UNIT/500 ML BAG 20 UNITS IV (20:02)
--- NOTE | 2023-04-04 21:14 | W.PM.OBNL1 ---
Date of service: 04/04/23 Time of Service: 21:14 Informed Consent Informed Consent: Augmentation of Labor, Induction of Labor (Cervical ripening.), Regional Anesthesia (Pt desires epidural in labor.) and Other (Placement Of Fitzgerald balloon for cervical ripening) Pelvic Exam Dilation: 1.5 Effacement (%): 50 station: -3 Cervix Position: mid Consistency: soft Comments: Cook catheter placed through the cervical os and 60 cc of normal saline used in the intrauterine, and intravaginal balloons. Patient tolerated the procedure without difficulty. Contractions Monitor Mode: External Contraction Frequency(min): Irregular Fetus A Heart Rate Baseline: 120 Variability: Moderate (6-25 BPM) Categories: Category I Accelerations: Present Decelerations: None Assessment and Plan Assessment and plan (1) Encounter for induction of labor: Status: Acute Assessment and plan: Patient has received 3 doses on Vasoprost well, followed by Pitocin augmentation with no significant labor progress for cervical change. Cook balloon placed without difficulty. 60 cc of interest, and intravaginal normal saline instilled. The patient tolerated the procedure without difficulty. Will reassess if Fitzgerald balloon is still in place for approximately 12 hours. (2) Gestational diabetes: Status: Acute Assessment and plan: Accu-Cheks every 4-6 hours. Most recent is 90 Qualifiers: Gestational diabetes mellitus control: diet-controlled Trimester: third trimester Qualified Code(s): O24.410 - Gestational diabetes mellitus in , diet controlled (3) Obesity affecting in third trimester, antepartum: Status: Acute Objective Temp Pulse Resp BP Pulse Ox 97.6 F 71 17 145/82 H 98 04/04/23 19:17 04/04/23 21:05 04/04/23 14:48 04/04/23 21:05 04/04/23 05:51 Laboratory Results WBC 8.62 10^3/uL (4.4-10.8) 04/03/23 17:25 RBC 4.09 10^6/uL (3.93-5.22) 04/03/23 17:25 Hgb 11.2 g/dL (11.2-15.7) 04/03/23 17:25 Hct 33.8 % (36.0-46.0) L 04/03/23 17:25 MCV 83 fL (80-95) 04/03/23 17:25 MCH 27.4 pg (27.0-33.0) 04/03/23 17: MCHC 33.1 % (32.0-36.0) 04/03/23 17: RDW 13.5 % (11.7-14.6) 04/03/23 17: Plt Count 177 10^3/uL (130-400) 04/03/23 17: MPV 12.1 fL (8.0-11.0) H 04/03/23 17:25 Patient ABO/Rh O Positive 04/03/23 17: Antibody Screen NEGATIVE 04/03/23 17:25 Subjective Interval history since last seen: Patient seen and examined with Pitocin augmentation at 20 milliunits. Patient is having some uterine irritability but no particularly strong contractions. We discussed ongoing options which would be other continue Pitocin, or stopping Pitocin and agreeable weight with advanced cervical ripening. Risk benefits and alternatives of placement of her Cook catheter with discussed and patient agreed to this plan. Results Hemoglobin/Hematocrit: Hgb 11.2 g/dL (11.2-15.7) 04/03/23 17: Hct 33.8 % (36.0-46.0) L 04/03/23 17:25 Abnormal Lab Findings: Abnormal Labs 04/03/23 17: Hct 33.8 L MPV 12.1 H
[2023-04-05] VITALS (46 sets, daily range): BP systolic 111–138; BP diastolic 56–85; PULSE 0–87; RESP 18; TEMP 36.4–36.7
--- NOTE | 2023-04-05 07:46 | W.PM.OBNL1 ---
Date of service: 04/05/23 Time of Service: 07:46 Informed Consent Informed Consent: Augmentation of Labor, Induction of Labor (Cervical ripening.), Regional Anesthesia (Pt desires epidural in labor.) and Other (Placement Of Fitzgerald balloon for cervical ripening) Contractions Monitor Mode: External Contraction Frequency(min): Irregular Fetus A Heart Rate Baseline: 120 Variability: Moderate (6-25 BPM) Categories: Category I FHR Rhythm: Regular Characteristics: Normal Accelerations: Present Assessment and Plan Assessment and plan (1) Encounter for induction of labor: Status: Acute Assessment and plan: Lorenza prior to of labor induction. Patient received misoprostol x 3 doses for cervical ripening, followed by Pitocin augmentation to a total of 20 milliunits. With no particular cervical change, Pitocin was discontinued and Fitzgerald balloon placed over the night last night. Fitzgerald catheter will be removed this morning and Pitocin augmentation resumed. I would anticipate artificial rupture of membranes and prepare for vaginal delivery. (2) Gestational diabetes: Status: Acute Assessment and plan: Continue Accu-Cheks every 6 hours. Glycemic control has been normal. Qualifiers: Gestational diabetes mellitus control: diet-controlled Trimester: third trimester Qualified Code(s): O24.410 - Gestational diabetes mellitus in , diet controlled (3) Obesity affecting in third trimester, antepartum: Status: Acute Assessment and plan: Anesthesia has evaluated the patient for possible regional anesthesia, analgesia as needed. Objective Temp Pulse Resp BP Pulse Ox 98.1 F 70 17 138/82 98 04/05/23 06:00 04/05/23 07:34 04/04/23 14:48 04/05/23 07:34 04/04/23 05:51 Laboratory Results WBC 8.62 10^3/uL (4.4-10.8) 04/03/23 17:25 RBC 4.09 10^6/uL (3.93-5.22) 04/03/23 17:25 Hgb 11.2 g/dL (11.2-15.7) 04/03/23 17:25 Hct 33.8 % (36.0-46.0) L 04/03/23 17:25 MCV 83 fL (80-95) 04/03/23 17:25 MCH 27.4 pg (27.0-33.0) 04/03/23 17:25 MCHC 33.1 % (32.0-36.0) 04/03/23 17:25 RDW 13.5 % (11.7-14.6) 04/03/23 17:25 Plt Count 177 10^3/uL (130-400) 04/03/23 17:25 MPV 12.1 fL (8.0-11.0) H 04/03/23 17:25 Glucose Cancelled 04/04/23 21:19 Patient ABO/Rh O Positive 04/03/23 17:25 Antibody Screen NEGATIVE 04/03/23 17:25 Subjective Interval history since last seen: Patient seen and examined this morning. Well rested. Minimal pain. Occasional irregular contractions. Baby is moving and active. No issues or concerns this morning. Fitzgerald balloon still in place. Will reevaluate in the next 1 to 2 hours for removal. Begin Pitocin augmentation when Fitzgerald catheter has been removed. All questions answered. Results Hemoglobin/Hematocrit: Hgb 11.2 g/dL (11.2-15.7) 04/03/23 17:25 Hct 33.8 % (36.0-46.0) L 04/03/23 17:25 Abnormal Lab Findings: Abnormal Labs 04/03/23 17: Hct 33.8 L MPV 12.1 H
--- NOTE | 2023-04-05 10:19 | PGE_ITS ---
Date of service: 04/05/23 Time of Service: 10:19 Informed Consent Informed Consent: Augmentation of Labor, Induction of Labor (Cervical ripening.), Regional Anesthesia (Pt desires epidural in labor.) and Other (Placement Of Fitzgerald balloon for cervical ripening) Pelvic Exam Dilation: 2 Effacement (%): 50 station: -2 Cervix Position: mid Consistency: soft Fetus A Heart Rate Baseline: 120 Presentation: Cephalic Assessment and Plan Assessment and plan (1) Encounter for induction of labor: Status: Acute Assessment and plan: After cervical ripening with Cytotec, followed by Pitocin, followed by Cook balloon catheter placement, we will restart Pitocin augmentation and anticipate artificial rupture of future. This plan was discussed and patient is amenable. Anesthesia will also perform an evaluation of her back in case there is need for for fusion, or spinal or surgical intervention. All questions were answered. (2) Gestational diabetes: Status: Acute Assessment and plan: Appropriate glycemic control. Again, labor process discussed, possibility of shoulder dystocia discussed. Qualifiers: Gestational diabetes mellitus control: diet-controlled Trimester: third trimester Qualified Code(s): O24.410 - Gestational diabetes mellitus in , diet controlled (3) Obesity affecting in third trimester, antepartum: Status: Acute Objective Temp Pulse Resp BP Pulse Ox 97.9 F 70 18 138/82 98 04/05/23 07:34 04/05/23 07:34 04/05/23 07:34 04/05/23 07:34 04/04/23 05:51 Laboratory Results WBC 8.62 10^3/uL (4.4-10.8) 04/03/23 17:25 RBC 4.09 10^6/uL (3.93-5.22) 04/03/23 17:25 Hgb 11.2 g/dL (11.2-15.7) 04/03/23 17:25 Hct 33.8 % (36.0-46.0) L 04/03/23 17:25 MCV 83 fL (80-95) 04/03/23 17:25 MCH 27.4 pg (27.0-33.0) 04/03/23 17:25 MCHC 33.1 % (32.0-36.0) 04/03/23 17:25 RDW 13.5 % (11.7-14.6) 04/03/23 17:25 Plt Count 177 10^3/uL (130-400) 04/03/23 17:25 MPV 12.1 fL (8.0-11.0) H 04/03/23 17:25 Glucose Cancelled 04/04/23 21:19 Patient ABO/Rh O Positive 04/03/23 17:25 Antibody Screen NEGATIVE 04/03/23 17:25 Subjective Interval history since last seen: Patient seen and examined this morning and plan of care discussed. Patient has had misoprostil x 3, 1 day of Pitocin with a maximum of 20 milliunits, and subsequently a Fitzgerald balloon for cervical ripening over the night. Fitzgerald ballo on was in situ, balloons were removed and replaced, and cervical exam confirmed 2 cm, 50%, -2 station, soft, mid position. We discussed the next options which I recommendation would be for restarting Pitocin augmentation, and artificial rupture of membranes when appropriate. She is amenable to this. We also discussed the possibility of patient desiring an epidural in the future, being for spinal anesthesia. She is fully amenable to having an ultrasound of her back and her back marked for potential placement of epidural or spinal in the future. At this point, she does not wish placement of an epidural catheter. Results Hemoglobin/Hematocrit: Hgb 11.2 g/dL (11.2-15.7) 04/03/23 17:25 Hct 33.8 % (36.0-46.0) L 04/03/23 17:25 Abnormal Lab Findings: Abnormal Labs 04/03/23 17: Hct 33.8 L MPV 12.1 H
[2023-04-05] MEDS: Lactated Ringers 1,000 ML 125 ML IV (10:44)
[2023-04-05] MEDS: Oxytocin/Normal Saline 30 UNIT/500 ML BAG 2 UNITS IV (10:45)
--- NOTE | 2023-04-05 11:34 | PDOC.ANES ---
Date of service: 04/05/23 Time of Service: 11:34 Anesthesia Note Report Anesthesia Note: Patient seen on OB unit: discussed scanning the patient with US due to high BMI and possible technical difficulty with spinal/epidural. Patient was assessed with easily palpable midline thoracically with some palpable spinous processes in the lumbar region. Patient consented to an ultrasound assessment of her back, assessed and found to have a reasonably accessible space at 6-7 cm visualized with the curvilinear probe. I did discuss that no perfect guarantee with landmark procedures but that I believe it is reasonable to attempt when she is ready. I did ask her to call earlier than later for her epidural as it will most likely still be technically challenging. All questions answered.
--- NOTE | 2023-04-05 16:43 | W.PM.OBNL1 ---
Date of service: 04/05/23 Time of Service: 16:43 Informed Consent Informed Consent: Augmentation of Labor, Induction of Labor (Cervical ripening.), Regional Anesthesia (Pt desires epidural in labor.) and Other (Placement Of Fitzgerald balloon for cervical ripening) Pelvic Exam Dilation: 2 Effacement (%): 50 station: -2 Cervix Position: mid Consistency: soft Assessment and Plan Assessment and plan (1) Encounter for induction of labor: Status: Acute Assessment and plan: Patient had received cervical ripening followed by Pitocin augmentation, followed by a Fitzgerald catheter and now is on Pitocin with artificial rupture of membranes. Continue Pitocin augmentation of labor. Continue glucose monitoring. Anticipate vaginal delivery. Pain control as needed. (2) Gestational diabetes: Status: Acute Qualifiers: Gestational diabetes mellitus control: diet-controlled Trimester: third trimester Qualified Code(s): O24.410 - Gestational diabetes mellitus in , diet controlled (3) Obesity affecting in third trimester, antepartum: Status: Acute Objective Temp Pulse Resp BP Pulse Ox 97.9 F 72 18 125/71 98 04/05/23 07:34 04/05/23 14:06 04/05/23 07:34 04/05/23 14:06 04/04/23 05:51 Laboratory Results WBC 8.62 10^3/uL (4.4-10.8) 04/03/23 17:25 RBC 4.09 10^6/uL (3.93-5.22) 04/03/23 17:25 Hgb 11.2 g/dL (11.2-15.7) 04/03/23 17:25 Hct 33.8 % (36.0-46.0) L 04/03/23 17:25 MCV 83 fL (80-95) 04/03/23 17:25 MCH 27.4 pg (27.0-33.0) 04/03/23 17:25 MCHC 33.1 % (32.0-36.0) 04/03/23 17:25 RDW 13.5 % (11.7-14.6) 04/03/23 17:25 Plt Count 177 10^3/uL (130-400) 04/03/23 17:25 MPV 12.1 fL (8.0-11.0) H 04/03/23 17:25 Glucose Cancelled 04/04/23 21:19 Patient ABO/Rh O Positive 04/03/23 17:25 Antibody Screen NEGATIVE 04/03/23 17:25 Subjective Interval history since last seen: Patient seen and examined, verbal consent for cervical examination and attempted artificial rupture of membranes. Cervix was noted to be 2 cm, 50%, -2 station. Amniotomy used for rupture of membranes for scant fluid. Small amount of vaginal bleeding. Will continue to monitor. Assess for progression in the future. Results Hemoglobin/Hematocrit: Hgb 11.2 g/dL (11.2-15.7) 04/03/23 17:25 Hct 33.8 % (36.0-46.0) L 04/03/23 17:25 Abnormal Lab Findings: Abnormal Labs 04/03/23 17:25 Hct 33.8 L MPV 12.1 H
--- NOTE | 2023-04-05 18:57 | PGE_ITS ---
Date of service: 04/05/23 Time of Service: 18:57 Informed Consent Informed Consent: Augmentation of Labor, Induction of Labor (Cervical ripening.), Regional Anesthesia (Pt desires epidural in labor.) and Other (Placement Of Fitzgerald balloon for cervical ripening) Assessment and Plan Assessment and plan (1) Encounter for induction of labor: Status: Acute Assessment and plan: Continue labor induction. Not currently in active labor. Would attempt to optimize all methods of labor induction in order to avoid delivery if possible. Risk benefits and alternatives of all of these options were discussed with the patient at length. (2) Gestational diabetes: Status: Acute Qualifiers: Gestational diabetes mellitus control: diet-controlled Trimester: third trimester Qualified Code(s): O24.410 - Gestational diabetes mellitus in , diet controlled (3) Obesity affecting in third trimester, antepartum: Status: Acute Objective Temp Pulse Resp BP Pulse Ox 97.9 F 81 18 125/80 98 04/05/23 07:34 04/05/23 18:10 04/05/23 07:34 04/05/23 18:10 04/04/23 05:51 Laboratory Results WBC 8.62 10^3/uL (4.4-10.8) 04/03/23 17:25 RBC 4.09 10^6/uL (3.93-5.22) 04/03/23 17:25 Hgb 11.2 g/dL (11.2-15.7) 04/03/23 17:25 Hct 33.8 % (36.0-46.0) L 04/03/23 17:25 MCV 83 fL (80-95) 04/03/23 17:25 MCH 27.4 pg (27.0-33.0) 04/03/23 17:25 MCHC 33.1 % (32.0-36.0) 04/03/23 17:25 RDW 13.5 % (11.7-14.6) 04/03/23 17:25 Plt Count 177 10^3/uL (130-400) 04/03/23 17:25 MPV 12.1 fL (8.0-11.0) H 04/03/23 17:25 Glucose Cancelled 04/04/23 21:19 Patient ABO/Rh O Positive 04/03/23 17:25 Antibody Screen NEGATIVE 04/03/23 17:25 Subjective Interval history since last seen: Patient seen and examined this evening. Options given. She has received cervical ripening with Cytotec followed by Pitocin augmentation, followed by repeat cervical ripening with a Fitzgerald balloon and no cervical change. At that point, she had Pitocin augmentation. Throughout the day today on 2 separate occasions, I did attempt to artificially rupture her membranes for labor progression and was unsuccessful. Patient does have significant vaginal and pelvic soft tissue. At this point, due to difficulty in monitoring, we discussed options and opportunities. The previous strategies have not gotten the patient into active labor. At this point it is worth the of regrouping. She requested discontinuation of her Pitocin so that she can ambulate and shower. Subsequent to this, the plan would be for further cervical ripening through the night. Cervidil was offered. She does understand that she would need continuous monitoring with this. Another option would be intravaginal Cytotec. She would prefer to try a suppository. Risk benefits and alternatives were discussed all questions were answered. Cervidil will be placed for a 12- hour course once she has been off Pitocin for greater than an hour, had a chance to ambulate, and has had a shower. We will continue Accu-Cheks every 6 hours. Results Hemoglobin/Hematocrit: Hgb 11.2 g/dL (11.2-15.7) 04/03/23 17:25 Hct 33.8 % (36.0-46.0) L 04/03/23 17:25 Abnormal Lab Findings: Abnormal Labs 04/03/23 17:25 Hct 33.8 L MPV 12.1 H
[2023-04-05] MEDS: Dinoprostone-CERVICAL 10 MG VSUPP VG (21:36)
--- NOTE | 2023-04-05 21:41 | W.PM.OBNL1 ---
Date of service: 04/05/23 Time of Service: 21:41 Informed Consent Informed Consent: Augmentation of Labor, Induction of Labor (Cervical ripening.), Regional Anesthesia (Pt desires epidural in labor.) and Other (Placement Of Fitzgerald balloon for cervical ripening) Pelvic Exam Dilation: 2 Effacement (%): 50 Cervix Position: mid Fetus A Heart Rate Baseline: 130 Presentation: Cephalic Variability: Moderate (6-25 BPM) Assessment and Plan Assessment and plan (1) Encounter for induction of labor: Status: Acute Assessment and plan: 3rd day labor induction. Will Cervidil tonight for increased cervical ripening. Pitocin augmentation tomorrow. All questions were answered. (2) Anxiety: Status: Chronic (3) Gestational diabetes: Status: Acute Qualifiers: Gestational diabetes mellitus control: diet-controlled Trimester: third trimester Qualified Code(s): O24.410 - Gestational diabetes mellitus in , diet controlled Objective Temp Pulse Resp BP Pulse Ox 97.9 F 81 18 125/80 98 04/05/23 07:34 04/05/23 18:10 04/05/23 07:34 04/05/23 18:10 04/04/23 05:51 Laboratory Results WBC 8.62 10^3/uL (4.4-10.8) 04/03/23 17:25 RBC 4.09 10^6/uL (3.93-5.22) 04/03/23 17:25 Hgb 11.2 g/dL (11.2-15.7) 04/03/23 17:25 Hct 33.8 % (36.0-46.0) L 04/03/23 17:25 MCV 83 fL (80-95) 04/03/23 17:25 MCH 27.4 pg (27.0-33.0) 04/03/23 17:25 MCHC 33.1 % (32.0-36.0) 04/03/23 17:25 RDW 13.5 % (11.7-14.6) 04/03/23 17:25 Plt Count 177 10^3/uL (130-400) 04/03/23 17:25 MPV 12.1 fL (8.0-11.0) H 04/03/23 17:25 Glucose Cancelled 04/04/23 21:19 Patient ABO/Rh O Positive 04/03/23 17:25 Antibody Screen NEGATIVE 04/03/23 17:25 Subjective Interval history since last seen: Patient seen and examined after lengthy conversation regarding ongoing labor induction, we have agreed on the next steps. She is ambulated, showered, and. Through the night tonight, we will attempt cervical ripening again with a different modality that being Cervidil. Risk benefits alternatives of this was discussed. Hopeful be for her to sleep through the night, and have ongoing cervical ripening.. All her questions were answered. Results Hemoglobin/Hematocrit: Hgb 11.2 g/dL (11.2-15.7) 04/03/23 17:25 Hct 33.8 % (36.0-46.0) L 04/03/23 17:25 Abnormal Lab Findings: Abnormal Labs 04/03/23 17: Hct 33.8 L MPV 12.1 H
[2023-04-06] VITALS (13 sets, daily range): BP systolic 91–137; BP diastolic 61–85; PULSE 48–85; RESP 16–18; TEMP 36.6–36.9; O2SAT 97–100; BMI 46.3
--- NOTE | 2023-04-06 07:22 | W.PM.OBNL1 ---
Date of service: 04/06/23 Time of Service: 07: Informed Consent Informed Consent: Augmentation of Labor, Induction of Labor (Cervical ripening.), Regional Anesthesia (Pt desires epidural in labor.) and Other (Placement Of Fitzgerald balloon for cervical ripening) Fetus A Heart Rate Baseline: 140 Presentation: Transverse Lie Variability: Moderate (6-25 BPM) Assessment and Plan Assessment and plan (1) Encounter for induction of labor: Status: Acute Assessment and plan: After 3 days of labor induction, while the patient was resting during the night with Cervidil for cervical ripening, baby transitioned to a transverse lie position. This was confirmed by ultrasound. Options were given including external cephalic version followed by continued labor induction versus primary section. Patient opts for primary section. Risk benefits and alternatives were discussed. Informed consent was obtained. Anesthesia, and the OR crew notified. This will be scheduled this morning. (2) Gestational diabetes: Status: Acute Qualifiers: Gestational diabetes mellitus control: diet-controlled Trimester: third trimester Qualified Code(s): O24.410 - Gestational diabetes mellitus in , diet controlled (3) Obesity affecting in third trimester, antepartum: Status: Acute (4) Transverse lie of fetus: Status: Acute Assessment and plan: Proceed with Objective Temp Pulse Resp BP Pulse Ox 97.9 F 72 18 126/66 98 04/05/23 07:34 04/06/23 04:06 04/05/23 07:34 04/06/23 04:06 04/04/23 05:51 Laboratory Results WBC 8.62 10^3/uL (4.4-10.8) 04/03/23 17:25 RBC 4.09 10^6/uL (3.93-5.22) 04/03/23 17:25 Hgb 11.2 g/dL (11.2-15.7) 04/03/23 17:25 Hct 33.8 % (36.0-46.0) L 04/03/23 17:25 MCV 83 fL (80-95) 04/03/23 17:25 MCH 27.4 pg (27.0-33.0) 04/03/23 17:25 MCHC 33.1 % (32.0-36.0) 04/03/23 17:25 RDW 13.5 % (11.7-14.6) 04/03/23 17:25 Plt Count 177 10^3/uL (130-400) 04/03/23 17:25 MPV 12.1 fL (8.0-11.0) H 04/03/23 17:25 Glucose Cancelled 04/04/23 21:19 Patient ABO/Rh O Positive 04/03/23 17:25 Antibody Screen NEGATIVE 04/03/23 17:25 Subjective Interval history since last seen: Patient seen and examined this morning. Upon report of significant activity and change in auscultation of heart tones, along with change in status of Aleksandr's per nursing, bedside POCUS ultrasound performed confirming a transverse lie, back up. heart tones are in the 140s with good variability. She is not having any significant uterine contractions. Cervidil was removed. Options for either external cephalic version followed by continued labor induction versus primary section were discussed with the patient. She opted for section. The risks, benefits, and alternatives of section including but not limited to infection, bleeding, injury to the surrounding organs, risk of anesthesia, risk of thromboembolism, or all explained to the patient in full informed consent was obtained. As this is nonurgent, and unscheduled, we will await anesthesia's availability for her section. All questions were answered. Results Hemoglobin/Hematocrit: Hgb 11.2 g/dL (11.2-15.7) 04/03/23 17:25 Hct 33.8 % (36.0-46.0) L 04/03/23 17:25 Abnormal Lab Findings: Abnormal Labs 04/03/23 17:25 Hct 33.8 L MPV 12.1 H WW Pocus Exam Exam testing Date/Time of Exam: Date of exam: 04/06/2023 Time of exam: 7:24 am ISABELL Calculator Estimated Delivery Date Method Current WG Current Estimate 04/09/23 LMP (Certain) 39w 4d Other Estimates 04/09/23 Ultrasound #1 39w 4d position Gestational age (weeks): 39 Presentation: Transverse/Shoulder Coding for Transabdominal exam: Complete exam
[2023-04-06] MEDS: AZITHROMYCIN 500 MG in Normal Saline 250 ML 250 MG IVPB (07:49)
[2023-04-06] MEDS: Sodium Citrate 30 ML CUP PO (07:55)
[2023-04-06] MEDS: Lactated Ringers 1,000 ML 125 ML IV ×2 (07:56→09:53)
--- NOTE | 2023-04-06 08:08 | ANES.PREOP_ITS ---
General Info Date of Service Date Performed: 04/06/23 Height: 5 ft 8 in Weight: 138.346 kg Body Mass Index (BMI): 46.3 Surgical Procedure: Operation Date: 04/06/23 07:40 Proposed Procedure Side Surgeon p Section Chantell Belle DO Meds Allergies and Home Medications Allergies Allergy/AdvReac Type Severity Reaction Status Date / Time strawberry Allergy Intermediate Hives Verified 04/03/23 16:55 No Known Drug Allergies Allergy Verified 04/03/23 16:55 Home Medication Medication Instructions Recorded vits no.126-ferrous fum 1 tab PO DAILY 08/29/22 28 mg iron-folic acid 800 mcg tablet (Classic ) aspirin 81 mg tablet,delayed 81 mg PO DAILY 01/11/23 release (Adult Low Dose Aspirin) Current Visit Medications: Current Medications Generic Name Dose Route Start Last Admin Trade Name Freq PRN Reason Stop Dose Admin Citric Acid/Sodium Citrate 30 ml 04/06/23 08:00 04/06/23 07:55 Sodium Citrate 30 Ml Cup PO 30 ml PREOP LEELA Administration Dinoprostone 10 mg 04/05/23 21:15 04/05/23 21:36 Dinoprostone-Cervical 10 Mg Vsupp VG 10 mg DIRECTED LEELA Administration Ringer's Solution 1,000 mls @ 200 mls/hr 04/03/23 16:45 IV INFUSION LEELA Ringer's Solution 1,000 mls @ 125 mls/hr 04/04/23 09:15 04/06/23 07:56 IV 125 mls/hr INFUSION LEELA Administration Oxytocin/Sodium Chloride 30 unit in 500 mls @ 2 mls/hr 04/04/23 09:15 04/05/23 18:44 Pitocin/Normal Saline IV 0 milliunits/min INFUSION LEELA 0 mls/hr Titration Protocol 2 MILLIUNITS/MIN Cefazolin Sodium/Dextrose 2 gm in 50 mls @ 100 mls/hr 04/06/23 07:30 04/06/23 07:50 Ancef Duplex IVPB 100 mls/hr PREOP LEELA Administration Azithromycin 500 mg/ Sodium 250 mls @ 250 mls/hr 04/06/23 07:30 04/06/23 07:49 Chloride IVPB 250 mls/hr PREOP LEELA Administration IV Miscellaneous Supplies 1 each 04/03/23 16:45 Iv Access IV DIRECTED LEELA IV Miscellaneous Supplies 1 each 04/04/23 09:15 Iv Access IV DIRECTED LEELA Sodium Chloride 0 ml 04/03/23 16:43 Normal Saline Flush 10 Ml Syr IVP PRN PRN Sodium Chloride 0 ml 04/04/23 09:06 04/04/23 14:30 Normal Saline Flush 10 Ml Syr IVP 10 ml PRN PRN Administration Terbutaline Sulfate 0.25 mg 04/03/23 16:43 Terbutaline 1 Mg/Ml Vial SC PRN PRN Zolpidem Tartrate 5 mg 04/04/23 21:18 Zolpidem 5 Mg Tab PO HS PRN PRN PFSH Active Problems Active Problems: Problem Status Onset Code Encounter for induction of labor Z34.90 Anxiety F41.9 Gestational diabetes O24.419 Obesity affecting in third trimester, antepartum O99.213 LGSIL on Pap smear of cervix R87.612 Z34.90 Migraine aura without headache G43.109 Medical History Medical History (Updated 04/06/23 @ 07:25 by Chantell Belle DO) Adult BMI > 30 Tobacco Smoking/Tobacco Use Status: Never Alcohol Alcohol Intake: never Substance Use Substance use: Never Substance use type: does not use Prental History History 2 2 Para 0 Hx # Term Pregnancies 0 Multiple births 0 Hx # Pregnancies 0 Ectopic pregnancies 0 AB induced 1 Hx Number of Living Children 0 AB spontaneous 0 Past Pregnancies Del. Date GA/Weeks # Preg Succ Route Wgt Sex Labor Lgth Anesth esia Location [facility] 01/12/22 6 No Delivery Date: 01/12/22 Last Updated by: Iris Nguyen CNM ETOP W/O complications Vital Signs and Lab Results Vital Signs Most Recent Vital Signs in EMR: Most Recent Vital Signs Temp Pulse Resp BP Pulse Ox 36.6 C 72 18 126/66 98 04/05/23 07:34 04/06/23 04:06 04/05/23 07:34 04/06/23 04:06 04/04/23 05:51 Point of Care Results Point of Care Results: Finger Stick Blood Glucose 143 04/05/23 21:49 Lab Results 04/03/23 17:25 04/04/23 21:19 Blood Type / Crossmatch: 2 Patient ABO/Rh O Positive 04/03/23 Antibody Screen NEGATIVE 04/03/23 Complete Blood Count: 2 White Blood Count 8.62 10^3/uL (4.4-10.8) 04/03/23 17:25 Red Blood Count 4.09 10^6/uL (3.93-5.22) 04/03/23 17:25 Hemoglobin 11.2 g/dL (11.2-15.7) 04/03/23 17:25 Hematocrit 33.8 % (36.0-46.0) L 04/03/23 17:25 Platelet Count 177 10^3/uL (130-400) 04/03/23 17:25 Complete Metabolic Panel: 2 No Data to Display Liver Function Panel: 2 No Data to Display Coagulation Panel: 2 No Data to Display Cardiac Panel: 2 No Data to Display Arterial Blood Gas: 2 No Data to Display Venous Blood Gas: 2 No Data to Display Pancreas Panel: 2 No Data to Display Thyroid Panel: 2 No Data to Display Infectious Disease: 2 No Data to Display Blood Cultures: 2 No Data to Display Toxicology Panel: 2 Urine Amphetamines Screen Negative (Negative) 03/14/23 13:00 Urine Benzodiazepines Screen Negative (Negative) 03/14/23 13:0 0 Urine Barbiturates Screen Negative (Negative) 03/14/23 13:00 Urine Cocaine Screen Negative (Negative) 03/14/23 13:00 Urine Methadone Screen Negative (Negative) 03/14/23 13:00 Urine Opiates Screen Negative (Negative) 03/14/23 13:00 Ur Tricyclic Antidepressants Screen Negative (Negative) 13:00 Ur Tetrahydrocannabinol (THC) Scrn Negative (Negative) 3 13:00 Panel: 2 No Data to Display Anesthesia Assessment and Plan Anesthesia History Personal History: No History of Anesthesia Complications Family History: No Family History of Anesthesia Complications Exercise Tolerance Exercise Tolerance: Metabolic Equivalents>4 Pertinent Negatives Pertinent Negatives: No Symptoms of GERD Cardiac & Pulmonary Exam Cardiac Exam: Normal S1/S2 Heart Sounds Pulmonary Exam: Clear Bilateral Breath Sounds Implantable Cardiac Device Does patient have a Pacemaker or an ICD?: No Airway Exam Known Difficult Airway: No Mallampati Class: 2 Mouth Opening: Normal (> 3cm) Thyromental Distance: Greater than 3 cm Neck Range of Motion: Full ROM Neck Circumference: Thick Teeth Condition: Normal Dentition ASA Classification ASA Score: ASA 2 Emergency Case?: No NPO Status NPO Status: NPO Clears >2 hours, Solids >8 hours Status Status: Confirmed Anesthesia Plan Resuscitation Status: Full Code Anesthesia Technique: Spinal Anesthesia Airway Planned: Natural Airway Monitors Used: Standard Monitors
[2023-04-06] MEDS: ceFAZolin 2 GM/50 ML BAG IVPB (08:33)
--- NOTE | 2023-04-06 09:07 | PLAC_PTH ---
PATIENT: Angelica Mascorro LOC: OBS U#:[id number] AGE/SX: 32/F ROOM: OBS.304 RE04/03/[address]: Nieves Espinoza MD : 1990 BED: A DIS: 04/08/2023 SPEC #: [id number] RECD: 04/06/23 12:42 STATUS: DEEDEE REQ #: [id number] JAY: 04/06/23 09:[address]: Nieves Espinoza DEPT: Surgical Specimen RECD BY: Sharlene Horowitz ENTERED: 04/06/23 12:43 SP TYPE: PLAC OTHR DR: Morena Dailey Tissues: 1 - PLACENTA (3RD TRIMESTER) Procedures: GROSS AND MICRO LEVEL 5 Comments: [id number]
[2023-04-06] MEDS: Bupivacaine 0.25% Pres-Free 30 ML VIAL (09:19)
--- NOTE | 2023-04-06 09:51 | PDOC.OPNB_ITS ---
Date of service: 04/06/23 Time of Service: 09:51 Operative Note Operative Note Delivery Method: Unscheduled STAT: No and Primary NTSV>37 Weeks: No DATE OF PROCEDURE: 04/06/23 PRE-OP DIAGNOSES: GDM, failed induction, transverse lie POST-OP DIAGNOSES: same PROCEDURE: Primary low-transverse section SURGEON: Chantell Belle Assisting Surgeon: Adamaris Negrete Anesthesia: local and spinal Estimated blood loss (mL): 500 Pathology: other (Placenta for exam) Complications: None Patient was transported to: floor Patient's condition: stable Indications: Failed induction at 39-3/7 weeks. Gestational diabetes. Transition from vertex to transverse lie. Findings: At the time of delivery, fetus in the vertex position. Normal tubes, ovaries, uterus. Delivery of a viable female infant. Placental nodule, placenta sent for examination Procedure Description: During the punch press operator of the third day of labor induction, patient had noted a significant movement of the baby and we had difficulty in finding heart tones in the appropriate position. Bedside ultrasound performed confirming a transverse lie. In light of this patient was offered version and ongoing labor induction, however declined and opted for section. Risk benefits and alternatives were discussed with the patient in full informed consent was obtained. She was taken the operating suite with an IV running where she is placed in the seated position and spinal anesthesia administered, tested and found to be adequate. She was then placed in the dorsal supine position and prepped and draped in the usual sterile fashion with pneumatic compression stockings for DVT prophylaxis. She had vaginal preparation performed as well as abdominal preparation. She received 500 mg of Zithromax and 3 g of Ancef for surgical site infection prophylaxis. Patient was placed with a leftward tilt and after testing for adequate anesthesia and infiltration of quarter percent Marcaine a Pfannenstiel skin incision was made and carried down to the un derlying fascia. The fascia was nicked in the midline and the fascial incision extended laterally. The rectus muscles identified split in the midline and peritoneum identified tented up and entered sharply. The peritoneal incision was then extended superiorly and inferiorly and the bladder blade was inserted. On palpation of the uterus, the vertex was lower in the pelvis than previous ultrasound. The vesicouterine peritoneum was identified tented up and entered and the bladder flap was created. Bladder was pushed well down below the lower uterine segment. A low transverse uterine incision was made and extended bluntly laterally. The vertex was delivered from the vertex position with the head to the right of the pelvis. There was no evidence of nuchal cord and the shoulders followed with ease. Three-vessel cord was noted clamped x 2 and cut and the infant was handed off to the waiting chief supply chain officer. At this point cord blood sample was obtained. The placenta was then manually expressed from the uterus and the uterus cleared of all clot and debris. At this point the uterine incision was closed in 2 layers first being running locked, second being imbricating with an 0 Monocryl suture. The uterine incision was noted to be hemostatic. Uterus tubes and ovaries were inspected. There is noted to be a small, 2 cm fundal fibroid which was pedunculated. Ovaries and tubes appeared normal. The uterus was then returned to the abdomen. Abdomen inspected and noted to be free of trauma all incisions were noted to be hemostatic. At this point the fascial incision was closed using 0 Vicryl suture in a running fashion. Subcutaneous tissue irrigated with copious amounts of normal saline and reapproximated with 3-0 Vicryl suture. The skin edge was then reapproximated with 4-0 undyed Monocryl in a subcuticular fashion. Steri-Strips and Mepilex dressing were placed. The patient was taken to the center with a Fitzgerald catheter in place draining clear yellow urine in stable condition. Complications: None apparent Findings: Delivery of a viable female infant from the vertex position to the right of the pelvis. Normal tubes, ovaries, uterus. Small fundal uterine fibroid. Placenta for examination due to incidental finding of a placental nodule. EBL: 500 cc Fluids: Crystalloid per anesthesia Pathology: Placenta for examination.
--- NOTE | 2023-04-06 10:44 | W.ANESPOSTOP ---
Postoperative Evaluation Date, Time and Location Date Performed: 04/06/23 Time Performed: 10:51 Patient Location: Obstetrics Vital Signs Most Recent Imported Vital Signs: Most Recent Vital Signs Temp Pulse Resp BP Pulse Ox 36.6 C 85 18 137/84 98 04/05/23 07:34 04/06/23 08:18 04/05/23 07:34 04/06/23 08:18 04/04/23 05:51 Pain Score Most Recent Pain Score: Most Recent Pain Score Pain Level [Abdomen] 0 04/05/23 06:00 Pain Level 0 04/03/23 16:56 Assessment Mental Status: Awake (Alert & Oriented to Patient Baseline) Airway and Respiratory Function: Patent airway with normal (patient baseline) respiratory exam Cardiovascular Function: Hemodynamically Stable Hydration Status: Adequately Hydrated Nausea & Vomiting: No Nausea or Vomiting Pain: Pt. Denies Any Pain Peripheral Nerve Block: Other (SAB)
[2023-04-06] MEDS: Ketorolac 15 MG/ML VIAL IVP ×2 (12:08→18:24)
[2023-04-06] MEDS: Docusate Sodium 100 MG CAP PO (12:08)
[2023-04-06] MEDS: Normal Saline Flush 10 ML SYR IVP ×3 (12:10→18:25)
[2023-04-06] MEDS: diphenhydrAMINE 50 MG/ML VIAL 25 MG IVP (16:38)
[2023-04-06] MEDS: Lactated Ringers 1,000 ML 200 ML IV (18:43)
[2023-04-07] VITALS (11 sets, daily range): BP systolic 121–146; BP diastolic 87–96; PULSE 64–78; RESP 16–20; TEMP 36.3–36.7; O2SAT 95–98
[2023-04-07] MEDS: Ketorolac 15 MG/ML VIAL IVP ×2 (00:09→06:09)
[2023-04-07 06:44] LABS: Abs Immature Grans 0.05 10^3/uL (0.0-0.06); Absolute Basophil Count 0.03 10^3/uL (0.0-0.2); Absolute Eosinophil Count 0.03 10^3/uL (0.0-0.7); Absolute Monocyte Count 0.68 10^3/uL (0.1-0.8); Absolute Neutrophil Count 7.91 10^3/uL (1.2-6.7); Basophils % 0.3; Eosinophils % 0.3; HCT 27.8 % (36.0-46.0); HGB 9.4 g/dL (11.2-15.7); Immature Grans % 0.4; Lymphocytes % 22.3; MCH 28.3 pg (27.0-33.0); MCHC 33.8 % (32.0-36.0); MCV 84 fL (80-95); MPV 11.9 fL (8.0-11.0); Monocytes % 6.1; Neutrophils % 70.6; Platelet Count 142 10^3/uL (130-400); RBC 3.32 10^6/uL (3.93-5.22); RDW 13.5 % (11.7-14.6); RDW-SD 40.7 fL
[2023-04-07] MEDS: oxyCODONE 5 mg/Acetaminophen 325 mg TAB PO ×4 (08:36→22:32)
[2023-04-07] MEDS: Docusate Sodium 100 MG CAP PO (08:36)
--- NOTE | 2023-04-07 08:57 | OBPPV_ITS ---
Date of service: 04/07/23 Time of Service: 08:57 Assessment and Plan Assessment and plan (1) Status post primary low transverse section: Status: Acute Assessment and plan: Postoperative day #1 status post primary low-transverse section for transverse lie. Overall doing well. Will ambulate, and increase activity and diet today. Routine postoperative care. Stable hemoglobin. Stable vital signs. (2) Gestational diabetes: Status: Acute Qualifiers: Gestational diabetes mellitus control: diet-controlled Trimester: third trimester Qualified Code(s): O24.410 - Gestational diabetes mellitus in , diet controlled Subjective Subjective Interval history: Patient seen and examined postoperative day #1 status post primary low- transverse section. Overall doing well though has having some pain control issues. I did encourage scheduled [id number] pain medication. Her hemoglobin is stable. Her vital signs are stable. She is actively working on breast-feeding and latch. Today, her Fitzgerald catheter is out, she will ambulate, and advance her diet and activity as tolerated. [place] baby status: Doing well and Strong Bonding Observed [place] feeding status: Exclusively breast feeding Exam Physical Exam Vital signs: Temp Pulse Resp BP Pulse Ox 97.3 F L 75 17 146/96 H 97 04/07/23 07:30 04/07/23 07:30 04/07/23 08:33 04/07/23 07:30 04/07/23 07:30 Vital Signs Reviewed: Yes Notable Details: Mild elevation in blood pressure, may be consistent with her pain status. Constitutional Constitutional: no acute distress HEENT Exam HEENT Exam: Normal Neck Exam Neck Exam: Normal Respiratory Exam Respiratory Exam: Normal Cardiovascular Exam Cardiovascular Exam: Normal Abdominal Exam Abdomen: Tender Fundal Exam Fundus: Below Umbilicus and Firm Extremities Exam Extremity Exam: Normal; negative Calf Tenderness Neurological Exam Neurological Exam: Normal Psychiatric Exam Psychiatric Exam: Normal Results Hemoglobin/Hematocrit: Hgb 9.4 g/dL (11.2-15.7) L 04/07/23 06:25 Hct 27.8 % (36.0-46.0) L 04/07/23 06:25 Abnormal Lab Findings: Abnormal Labs 04/03/23 04/07/23 17:25 06:25 WBC 11.20 H RBC 3.32 L Hgb 9.4 L Hct 33.8 L 27.8 L MPV 12.1 H 11.9 H Absolute Neutrophils 7.91 H
[2023-04-07] MEDS: Ibuprofen 600 MG TAB PO (14:20)
[2023-04-08] MEDS: Ibuprofen 600 MG TAB PO ×3 (02:16→15:36)
[2023-04-08] MEDS: oxyCODONE 5 mg/Acetaminophen 325 mg TAB PO ×2 (03:03→08:22)
[2023-04-08 03:20] VITALS: BP 128/89; PULSE 75; RESP 18; TEMP 36.8; O2SAT 100
[2023-04-08 07:56] VITALS: BP 130/93; PULSE 81; RESP 16; TEMP 36.8; O2SAT 98
--- NOTE | 2023-04-08 07:57 | W.PM.OBPNV1 ---
Date of service: 04/08/23 Time of Service: 07:57 Assessment and Plan Assessment and plan (1) Status post primary low transverse section: Status: Acute Assessment and plan: Postop day 2. Plan is to discharge the patient later today after she has had ibuprofen 600 mg every 6 hours with as needed Percocet. She was encouraged to get out of bed take shower. Subjective Subjective Interval history: Right-sided pelvic pain is greater than the left side. Patient reports being ambulatory tolerating a regular diet. She is interested in discharge today Patient comments: Incisional pain and Tolerating diet Patient's Mood: She is tired. Somewhat emotional and cried stating that she wanted to go home Narrative: day 2 primary low-transverse delivery. Successfully breast-feeding. Continues to eat having Percocet requirement for pain control. Exam Physical Exam Vital signs: Temp Pulse Resp BP Pulse Ox 98.2 F 75 18 128/89 100 04/08/23 03:20 04/08/23 03:20 04/08/23 03:20 04/08/23 03:20 04/08/23 03:20 Constitutional Constitutional: no acute distress Respiratory Exam Respiratory Exam: Normal Cardiovascular Exam Cardiovascular Exam: Normal Abdominal Exam Abdomen: Tender (R lateral incision margin) Fundal Exam Fundus: Below Umbilicus and Firm Rectal Exam Rectal Exam: Not Done Extremities Exam Extremity Exam: Normal Back/Spine/Pelvis Exam Back Exam: Normal Skin Exam Skin Exam: Normal Neurological Exam Neurological Exam: Normal Psychiatric Exam Psychiatric Exam: Normal (tearful today. Not conversant as to how much support she will have at home) Results Hemoglobin/Hematocrit: Hgb 9.4 g/dL (11.2-15.7) L 04/07/23 06:25 Hct 27.8 % (36.0-46.0) L 04/07/23 06:25 Abnormal Lab Findings: Abnormal Labs 04/03/23 04/07/23 17:25 06:25 WBC 11.20 H RBC 3.32 L Hgb 9.4 L Hct 33.8 L 27.8 L MPV 12.1 H 11.9 H Absolute Neutrophils 7.91 H
[2023-04-08] MEDS: Docusate Sodium 100 MG CAP PO (08:23)
[2023-04-08 12:05] VITALS: BP 134/89; PULSE 78; RESP 18; TEMP 36.5; O2SAT 98
--- NOTE | 2023-04-08 14:57 | DSE_ITS ---
Date of service: 04/08/23 Time of Service: 14:58 DS: Diagnosis Discharge Diagnosis (1) Status post primary low transverse section: Status: Acute Asessment and Plan: For unstable lie and unsuccessful induction of labor Discharge Plan Disposition Patient Disposition: Home Condition: Improving Discharge Details Reason For Visit: GDM Admit Date/Time: 04/03/23 16:43 Admit Provider: Nieves Espinoza Attending Provider: Nieves Espinoza Primary Care Provider: Morena Dailey Hospital Course Hospital Course: Pt was admitted to [facility] for IOL at term secondary to gestational diabetes, diet controlled. She underwent a three days of medication including Misoprostil, Oxytocin and Cervidil. No response to cervical lyons bulb. On the morning of the 3rd day the fetus was noted to be in transverse position. A primary delivery was performed and viable female delivered. Surgery was uncomplicated. Postop recovery satisfactory. Will discharge pt to home with Rx for Ibuprofen 600mg every 6 hours for pain. 5 tablets of Percocet efaxed to her pharmacy. Pt will keep abdominal dressing in place until she is seen in [facility] in one week. Home Meds and New Rx's Prescriptions: New ibuprofen 600 mg Tablet 600 mg PO Q6H PRN PRNQty: 30 0RF oxycodone-acetaminophen 5-325 mg Tablet 1 tab PO Q4H PRN MDD 4 PRNQty: 5 0RF Discontinued aspirin [Adult Low Dose Aspirin] 81 mg tablet,delayed release (DR/EC) 81 mg PO DAILY No Action Classic 28 mg iron- 800 mcg tablet 1 tab PO DAILY Discharge Instructions Additional Instructions: Take the Ibuprofen 600mg every six hour as needed for pain. Add the Percocet for pain not controlled with Ibuprofen Stand Alone Forms: BC Instructions, BC Discharge Instruc Activity:: Activity as Tolerated Equipment/Supplies:: No Equipment Needed Diet:: As Tolerated Discharge Orders Discharge Orders: Discharge Order (Routine); Ordered 04/08/23 Ordered By: Adamaris Negrete OB:MARIOLA Summary Contraception Discussed Contraception Discussed: No, Gender-Baby A: Female weight: 8 lb 7.981 oz Disposition of Baby A: Home Status at Discharge Functional status at discharge: independent ambulation Overall status at discharge: patient is progressing back to baseline Mental Status: mental status grossly normal Speech and Movement: speech and movement normal Mood: congruent mood Affect: normal affect Time Spent with Patient providing and/or coordinating discharge services: Less than 30 minutes Exam Physical Exam Vital signs: Temp Pulse Resp BP Pulse Ox 97.7 F 78 18 134/89 98 04/08/23 12:05 04/08/23 12:05 04/08/23 12:05 04/08/23 12:05 04/08/23 12:05 Vital Signs Reviewed: Yes Notable Details: BP slightly elevated. Constitutional Constitutional: no acute distress HEENT Exam HEENT Exam: Normal Respiratory Exam Respiratory Exam: Normal Abdominal Exam Abdomen: Tender (pain controlled with Ibuprofen today. No Percocet requested.) Fundal Exam Fundus: Below Umbilicus and Firm Rectal Exam Rectal Exam: Not Done Extremities Exam Extremity Exam: Edema (1+ LE edema bilateraly) and Normal Capillary Refill; negative Calf Tenderness Back/Spine/Pelvis Exam Back Exam: Normal Skin Exam Skin Exam: Normal Neurological Exam Neurological Exam: Normal Psychiatric Exam Psychiatric Exam: Normal PFSH All Active Problems (Updated 04/07/23 @ 08:59 by Chantell Belle DO) Status post primary low transverse section (Acute) Anxiety (Chronic) Gestational diabetes (Acute) Obesity affecting in third trimester, antepartum (Acute) LGSIL on Pap smear of cervix (Acute) (Acute) Medical History (Updated 04/07/23 @ 08:59 by Chantell Belle DO) Migraine aura without headache Adult BMI > 30 Family History Father Essential hypertension Brother Asthma Grandfather , Lung CA? at age 70. No problems noted. Grandmother COPD (chronic obstructive pulmonary disease) Diabetes Mother Breast cancer Hyperlipidemia Mother had stent placed Social History Smoking/Tobacco Use Status: Never Smoking risk assessment performed?: Yes Alcohol Intake: never Drug use: Never Substance use type: does not use Housing: house Do you feel safe at home: Yes Do you feel safe in your relationship?: Yes History History 2 Para 0 Hx # Term Pregnancies 0 Multiple births 0 Hx # Pregnancies 0 Ectopic pregnancies 0 AB induced 1 Hx Number of Living Children 0 AB spontaneous 0 Past Pregnancies Del. Date GA/Weeks # Preg Succ Route Wgt Sex Labor Lgth Anesth esia Location [facility] 01/12/22 6 No Delivery Date: 01/12/22 Last Updated by: Iris Nguyen CNM ETOP W/O complications DS: Data Vitals/I&O Vitals and I&O: Vital Signs Temperature 97.7 F 04/08/23 12:05 Temperature Source Oral 04/08/23 12:05 Pulse 78 04/08/23 12:05 Pulse Rhythm Regular 04/08/23 08:15 Respiratory Rate 18 04/08/23 12:05 Respiratory Depth Normal 04/07/23 20:00 Blood Pressure 134/89 04/08/23 12:05 Blood Pressure Mean 104 04/08/23 12:05 Pulse Oximetry 98 04/08/23 12:05 Oxygen Delivery Method Room Air 04/03/23 16:56 Oxygen Flow Rate 0 04/03/23 16:56 Pain Level 0 04/08/23 12:05 Comment pt reports feeling well, denies any symptoms of bradycardia 04/06/23 12:30 Intake & Output 04/07/23 04/08/23 04/08/23 23:59 11:59 23:59 Intake Total 360 / 2640 Output Total 1200 / 2300 Balance -840 / 340 Intake: Oral 360 / 1740 Output: Urine 1200 / 2300 Other: Urine Color Yellow Pale
[2023-04-09 09:05] VITALS: BP 131/74; PULSE 100
== END 2023-04-08 16:10 | disposition home or self-care (01) | DRG 788 ==
PROVIDERS: Obstetrics & Gynecology; Admitting Provider Obstetrics & Gynecology; PCP Internal Medicine; Visit Provider Obstetrics & Gynecology
PROC: 10D00Z1 Extraction of Products of Conception, Low, Open Approach (ICD-10-PCS; CPT 59514; principal; 2023-04-06 07:30)
DX: O24.420 Gestational diabetes mellitus in childbirth, diet controlled (principal); O32.2XX0 Maternal care for transverse and oblique lie, not applicable or unspecified; O99.214 Obesity complicating childbirth; Z37.0 Single live birth; Z3A.39 39 weeks gestation of pregnancy; O99.344 Other mental disorders complicating childbirth; F41.9 Anxiety disorder, unspecified; O43.893 Other placental disorders, third trimester; O61.1 Failed instrumental induction of labor
CPT/HCPCS: 59200; 59514; 36415; 76815; 82947; 85027; 86850; 86900; 86901; 85025; 88307; J0131; J0456; J0690; J1100; J1200; J1885; J2371; J2405; J3010; J3490

== ENCOUNTER 2024-05-29 09:01 | Outpatient (REF) | payer MEDICAID, SELFPAY ==
[2024-05-29 17:31] LABS: Bacteria Few HPF (Negative); C & S Indicated? C&S Done As Ordered; Casts Negative LPF (Negative); Crystals Many Amorphous HPF (Negative); Epithelial Cells Many HPF (Negative); Mucus Negative (Negative); RBC Negative HPF (0-2); WBC Negative HPF (0-5)
== END 2024-05-29 09:02 | disposition home or self-care (01) ==
LOC: LBN 09:01
PROVIDERS: PCP Nurse Practitioner; Visit Provider Nurse Practitioner Family
DX: R31.29 Other microscopic hematuria (principal); R35.0 Frequency of micturition; R33.9 Retention of urine, unspecified
CPT/HCPCS: 81015; 87086

== ENCOUNTER 2024-05-29 10:23 | Outpatient (CLI) | payer MEDICAID, SELFPAY ==
--- NOTE | 2024-05-29 10:15 | DI.US_ITS ---
Exam(s) US RENAL EXAM: US RENAL CLINICAL HISTORY: r/o retention, PLEASE DO PVR TECHNIQUE: Ultrasound of both kidneys performed using standard protocol. COMPARISON: No exams were available for comparison FINDINGS: RIGHT KIDNEY: Measures 11.5 cm in length. No cysts evident. Normal cortical thickness and corticomedullary differen tiation .No solid masses There is mild dilatation of the upper right collecting system. No obvious intrarenal calculi evident . LEFT KIDNEY: Measures 13 cm in length. No cysts evident. Normal cortical thickness and corticomedullary different iaion. No solids masses. No intrarenal calculi nor hydonephrosis. URINARY BLADDER: Prevoid volume is 90 cc Postvoid volume is 5 cc No evidence of bladder mass nor diverticuli. Ureterovesical jets: Both right identified but are asymmetric with the right being less than the left . IMPRESSION: 1. Mild right-sided hydronephrosis and diminished right ureterovesical jet. Findings are suspicious for possibility of right ureteral calculi. Recommend follow-up CT scan. DATA REPOSITORY:
--- OUTSIDE RECORDS SUMMARY | 2024-05-29 10:24 | XMS_ITS | Encounter Summary ---
Author Organization [facility] Address [address] [place] [address] Care Team Providers Care High School Coach Name Role Phone Morena Dailey MD Primary Care Provider [phone] Zena Oreilly MD Primary Care Provider + Encounter Details Date Type Department Care Team (Late st Contact Info) Description 09/16/2022 Lab Requisition [facility] Pathology & Laboratory Medicine - [address] [address] Outr Resulting Lab, Provider Social History Tobacco Use Types Packs/Day Years Used Date Smoking Tobacco: Never Smokeless Tobacco: Never Alcohol Use Standard Drinks/Week Comments Yes 0 (1 standard drink = 0.6 oz pur e alcohol) Interpersonal Safety Answer Date Record ed Physically Hurt Never 12/08/2019 Verbally Threaten Not on file 12/08/2019 Comments Unknown Sex and Gender Information Value Date Recorded Sex Assigned at Not on file Legal Sex Female 9:15 EST Gender Identity Not on file Sexual Orientation Not on file documented as of this encounter Plan of Treatment Not on file documented as of this encounter Procedures Procedure Name Priority Date/Time Associated Diagnosis Comments HEPATITIS C AB W REFLEX TO HCV RNA BY PCR Routine 09/16/2022 10:10 EDT HEPATITIS B SURFACE ANTIGEN Routine 09/16/2022 10:10 EDT documented in this encounter Results * HEPATITIS B SURFACE ANTIGEN (09/16/2022 10:10 EDT) Hep B Surface Ag Negative Negative 09/19/2022 9:16 EDT [facility] Blood VENOUS BLOOD / Unknown 09/16/2022 10:10 EDT 09/16/2022 18:01 EDT us Provider Outr Resulting Lab CHEMISTRY & BLOOD GA S ORDERABLES Final Result Performing Organization Address City/[facility]/ZIP Co de Phone Number [facility] [address] [place] [address] * HEPATITIS C AB W REFLEX TO HCV RNA BY PCR (09/16/2022 10:10 EDT) Hep C Antibody Negative Negative 09/19/2022 9:58 EDT [facility] Blood VENOUS BLOOD / Unknown 09/16/2022 10:10 EDT 09/16/2022 18:01 EDT us Provider Outr Resulting Lab CHEMISTRY & BLOOD GA S ORDERABLES Final Result Performing Organization Address City/[facility]/ZIP Co de Phone Number [facility] [address] [place] [address] documented in this encounter Visit Diagnoses Not on filedocumented in this encounter Care Teams High School Coach Relationship Specialty Start Date End Date Morena Dailey MD PCP - General Internal Medicine - Primary Care 09/24/19 12/07/23 Zena Oreilly MD [address] [place] [phone] PCP - General 12/08/23 documented as of this encounter
--- OUTSIDE RECORDS SUMMARY | 2024-05-29 10:24 | XMS_ITS | Clinical Summary ---
Author Organization [facility] Address [address] [place] [address] Care Team Providers Care Policy Issue Clerk Name Role Phone Zena Oreilly MD Primary Care Provider + Allergies Active Allergy Reactions Criticality Noted Date Comments Nitrofurantoin GI upset 11/29/2019 Patient denies this allergy. Medications acetaminophen (TYLENOL) 500 mg tablet 2 tab(s) orally every 6 hours as needed Active triamcinolone (KENALOG) 0.1 % creamIndication s:Dermatitis Apply twice daily to affected area 80 g 2 0 Active Additional Information Patient not taking.Reported on 08/13/2023 loratadine (CLARITIN) 10 mg tabletIndicatio ns:Acute non-recurrent maxillary sinusitis Take 1 Tab by mouth daily. 30 Tab 2 1 Active Additional Information Patient not taking.Reported on 08/13/2023 fluticasone propionate (FLONASE) 50 mcg/actuation nasal sprayIndication s:Acute non-recurrent maxillary sinusitis Instill 1 [place] into both nostrils 2 times daily. 1 Bottle 2 1 Active Additional Information Patient not taking.Reported on 08/13/2023 Active Problems Problem Noted Date Diagnosed Date Prehypertension 03/27/2019 Migraine without aura and wi thout status migrainosus, not intractable 03/27/2019 Primary insomnia 03/27/2019 Oral contraceptive pill surveillance 06/02/2014 Encounters Date Type Department Care Team Description 04/24/2024 Telephone [facility] Bariatric Surgery - [place] [address] [place], [place] [id number] Bariatric Surgery, Physician Hn Referral Related from Last 3 Months Immunizations Name Administration Dates Next Due Covid-19 mRNA Vaccine (MODER NA COVID-19) PF 0.5 ml IM (12 yrs+) 06/12/2020,05/15/2020 HPV Quadrivalent Recombinant Vaccine 11/24/2009, 07/25/2008,07/23/2008 Hepatitis B Vaccine Adult IM 11/12/2014,04/28/20 14,03/26/2014 Hepatitis B Vaccine Ped/Adol escent 3-dose IM 09/08/1993,01/15/1993,1992 Influenza Vaccine Quad (AFLU RADHA) PF 0.5 ml IM (3 yrs+) 03/06/2018,02/09/2016,03/11/2015 MMR Vaccine SQ 08/19/2014,06/30/2014,05/04/1994 Tdap Vaccine =>7YO IM 01/31/2014 Family History Medical History Relation Comments Asthma Brother Hypertension Father Migraines Father Heart Disease Mother Supraventricular tachycardia Mother Relation Status Comments Brother Father Alive Mother Alive Social History Tobacco Use Types Packs/Day Years [...] on file Sexual Orientation Not on file Obstetrics History Last Filed Vital Signs Vital Sign Reading Time Taken Comments Blood Pressure 128/75 09/13/2023 0915 EDT Pulse 81 09/13/2023 0915 EDT Temperature 36.4 ??C (97.5 ??F) 09/13/2023 0915 EDT Respiratory Rate 20 09/13/2023 0915 EDT Oxygen Saturation 98% 09/13/2023 0915 EDT Inhaled Oxygen Concentration - - Weight 135.6 kg (299 lb) 03/27/2019 1259 EST Height 174 cm (5' 8.5) 03/27/2019 1259 EST Body Mass Index 44.8 03/27/2019 1259 EST Plan of Treatment Health Maintenance Due Date Last Done Comments Social Determinants Of Healt h (SDOH) 1992 Depression Screening 2004 HPV Vaccines (3 - 3-dose series) 02/16/2010 11/24/2009, 07/25/2008, 07/23/2008 Advance Directive 2010 Preventive Care Visit 2010 HPV/Cotest (Cervical Cancer Screening) 2022 COVID-19 Vaccine (2 5 season) 2024 06/12/2020, 05/15/2020 Tetanus (Adult) Immunization 02/01/2024 01/31/2014 Influenza Immunization (Adul t) (#1) 2024 03/06/2018, 02/09/2016, 03/11/2015 Cervical Cancer Screening 09/16/2025 Pap Smear (Cervical Cancer Screening) 09/16/2025 09/16/2022, 03/02/2018, 11/04/2016, Additional history exists Pertussis (Adult) Immunization Completed 01/31/2014 Hepatitis B Vaccine Completed 11/12/2014, 04/28/2014, 03/26/2014, Additional history exists HIV Screening Completed 09/16/2022 Hepatitis C Screen Completed 09/16/2022 RETIRED Cervical Cancer Screening Discontinued 09/16/2022, 03/02/2018, 11/04/2016, Additional history exists Procedures Procedure Name Priority Date/Time Associated Diagnosis Comments HEPATITIS C AB W REFLEX TO HCV RNA BY PCR Routine 09/16/2022 10:10 EDT HIV 1/2 ANTIGEN AND ANTIBODY, 4TH GENERATION Routine 09/16/2022 10:10 EDT PAP TEST Today 09/16/2022 9:40 EDT Encounter for other general examination from Last 3 Months or Most Recently Relevant to Health Maintenance Results * HEPATITIS C AB W REFLEX TO HCV RNA BY PCR (09/16/2022 10:10 EDT) Hep C Antibody Negative Negative 09/19/2022 9:58 EDT [facility] Blood VENOUS BLOOD / Unknown 09/16/2022 10:10 EDT 09/16/2022 18:01 EDT us Provider Outr Resulting Lab CHEMISTRY & BLOOD GA S ORDERABLES Final Result Performing Organization Address City/[facility]/ZIP Co de Phone Number [facility] [address] [place] [address] * HIV 1/2 ANTIGEN AND ANTIBODY, 4TH GENERATION (09/16/2022 10:10 EDT) HIV 1 and 2 Antibody/p24 Antigen, 4th Generation Negative Negative 09/17/2022 9:36 EDT [facility] Comment:If acute HIV-1 infec tion is suspected in a high risk patient, submit plasma specimen for HIV-1 RNA quantitation test. Blood VENOUS BLOOD / Unknown 09/16/2022 10:10 EDT 09/16/2022 18:01 EDT Narrative [facility] - 09/17/2022 9:36 EDT Fourth Generation assay performed on the Zebtabaur XPT. us Provider Outr Resulting Lab IMMUNOLOGY AND SEROL OGY ORDERABLES Final Result Performing Organization Address City/[facility]/ZIP Co de Phone Number [facility] [address] [place] [address] * PAP TEST (09/16/2022 9:40 EDT) Specimens A. Cervix and/or Endocervix , ThinPrep Imaging System with Manual Evaluation 09/27/2022 17:04 EDT [facility] Specimen Adequacy Satisfactory for Evaluation - transformation zone component present 09/27/2022 17:04 EDT [facility] General Categorization Epithelial Cell Abnormality 09/27/2022 17:04 T [facility] Descriptive Diagnosis Squamous Cell Abnormality - Low grade squamous intraepithelial lesion (LSIL). 09/27/2022 17:04 T [facility] Educational Comments [facility] recommends following the ASCCP's management guidelines which may be found at www.asccp.org 09/27/2022 17:04 EDT [facility] Attestation By the signature below, the attending physician certifies that they have personally conducted a gross and/or microscopic examination of the described specimens and rendered or confirmed the above diagnosis. 09/27/2022 17:04 EDT [facility] at 1704 Clinical History See below 09/28/19 17:04 EDT [facility] Performing Lab [facility] 09/27/2022 17:04 EDT [facility] Scanned Images 09/27/2022 17:04 EDT [facility] Papanicolaou smear specimen (specimen) CERVIX UTERI STRUCTURE / Unknown 09/16/2022 9:40 EDT 09/19/2022 13:01 EDT Iris Nguyen APN PATHOLOGY ORDERABLES Rin harris Result [facility] [address] [place] [address] from Last 3 Months or Most Recently Relevant to Health Maintenance Insurance [facility] MEDICAID ACO [place] Care Teams Policy Issue Clerk Relationship Specialty Start Date End Date Zena Oreilly MD [address] [place] [phone] PCP - General 12/08/23
--- OUTSIDE RECORDS SUMMARY | 2024-05-29 10:24 | XMS_ITS | Referral Summary ---
Author Organization [facility] Address [address] [place] [address] Care Team Providers Care Experimental Display Builder Name Role Phone Zena Oreilly MD Primary Care Provider + Encounters Date Type Department Care Team Description 04/24/2024 Telephone [facility] Bariatric Surgery - [place] [address] [place], [place] [phone] Bariatric Surgery, Physician Hn Referral Related from Last 3 Months Allergies Active Allergy Reactions Criticality Noted Date [...] sprayIndication s:Acute non-recurrent maxillary sinusitis Instill 1 [place] into both nostrils 2 times daily. 1 Bottle 2 1 Active Additional Information Patient not taking.Reported on 08/13/2023 Active Problems Problem Noted Date Diagnosed Date Prehypertension 03/27/2019 Migraine without aura and wi thout status migrainosus, not intractable 03/27/2019 Primary insomnia 03/27/2019 Oral contraceptive pill surveillance 06/02/2014 Immunizations Name Administration Dates Next Due Covid-19 mRNA Vaccine (MODER NA COVID-19) PF 0.5 ml IM (12 yrs+) 06/12/2020,05/15/2020 HPV Quadrivalent Recombinant Vaccine 11/24/2009, 07/25/2008,07/23/2008 Hepatitis B Vaccine Adult IM 11/12/2014,04/28/20 14,03/26/2014 Hepatitis B Vaccine Ped/Adol escent 3-dose IM 09/08/1993,01/15/1993,1992 Influenza Vaccine Quad (AFLU RADHA) PF 0.5 ml IM (3 yrs+) 03/06/2018,02/09/2016,03/11/2015 MMR Vaccine SQ 08/19/2014,06/30/2014,05/04/1994 Tdap Vaccine =>7YO IM 01/31/2014 Social History Tobacco Use Types Packs/Day Years [...] on file Sexual Orientation Not on file Last Filed Vital Signs Vital Sign Reading [...] 44.8 03/27/2019 1259 EST Plan of Treatment Not on file Procedures Procedure Name Priority Date/Time Associated Diagnosis [...] C Antibody Negative Negative 09/19/2022 9:58 EDT [facility] Blood VENOUS BLOOD / Unknown 09/16/2022 10:10 EDT 09/16/2022 18:01 EDT us Provider Outr Resulting Lab CHEMISTRY & BLOOD GA S ORDERABLES Final Result Performing Organization Address [facility] Co de Phone Number [facility] [address] [place] [address] * HIV 1/2 ANTIGEN AND ANTIBODY, 4TH GENERATION (09/16/2022 10:10 EDT) HIV 1 and 2 Antibody/p24 Antigen, 4th Generation Negative Negative 09/17/2022 9:36 EDT [facility] Comment:If acute HIV-1 infec tion is suspected in a high risk patient, submit plasma specimen for HIV-1 RNA quantitation test. Blood VENOUS BLOOD / Unknown 09/16/2022 10:10 EDT 09/16/2022 18:01 EDT Narrative [facility] - 09/17/2022 9:36 EDT Fourth Generation assay performed on the Siemens Centaur XPT. us Provider Outr Resulting Lab IMMUNOLOGY AND SEROL OGY ORDERABLES Final Result Performing Organization Address [facility]/ZIP Co de Phone Number [facility] [address] [place] [address] * PAP TEST (09/16/2022 9:40 EDT) Specimens A. Cervix and/or Endocervix , ThinPrep Imaging System with Manual Evaluation 09/27/2022 17:04 [facility] Specimen Adequacy Satisfactory for Evaluation - transformation zone component present 09/27/2022 17:04 [facility] General Categorization Epithelial Cell Abnormality 09/27/2022 17:04 [facility] Descriptive Diagnosis Squamous Cell Abnormality - Low grade squamous intraepithelial lesion (LSIL). 09/27/2022 17:04 [facility] Educational Comments [facility] recommends following the ASCCP's management guidelines which may be found at www.asccp.org 09/27/2022 17:04 [facility] Attestation By the signature below, the attending physician certifies that they have personally conducted a gross and/or microscopic examination of the described specimens and rendered or confirmed the above diagnosis. 09/27/2022 17:04 [facility] at 1704 Clinical History See below 09/28/19 17:04 [facility] Performing Lab [facility] 09/27/2022 17:04 [facility] Scanned Images 09/27/2022 17:04 [facility] Papanicolaou smear specimen (specimen) CERVIX UTERI STRUCTURE / Unknown 09/16/2022 9:40 EDT 09/19/2022 13:01 EDT Iris Nguyen APN PATHOLOGY ORDERABLES Rin harris Result [facility] [address] [place] [address] from Last 3 Months or Most Recently Relevant to Health Maintenance Insurance [facility] [place] [address] , [place] [address] , [place] [address] , [place] [address] Care Teams Experimental Display Builder Relationship Specialty Start Date End Date Zena Oreilly MD [address] [place] [phone] PCP - General 12/08/23
--- OUTSIDE RECORDS SUMMARY | 2024-05-29 10:24 | XMS_ITS | Encounter Summary ---
Author Organization [facility] Address [address] [place] [address] Care Team Providers Care Crystal Evaluator Name Role Phone Morena Dailey MD Primary Care Provider [phone] Zena Oreilly MD Primary Care Provider + Encounter Details Date Type Department Care Team (Late st Contact Info) Description 04/06/2023 Lab Requisition [facility] Pathology & Laboratory Medicine - [address] [address] Chantell Belle [address] [place] [address] [place] [address] Maternal care for transverse and oblique lie, not applicable or unspecified; Anxiety disorder, unspecified; Obesity complicating , third trimester; Gestational diabetes mellitus in , unspecified control; Encounter for supervision of normal , unspecified, unspecified trimester; Gestational diabetes mellitus in , diet controlled Social History Tobacco Use Types Packs/Day Years [...] Procedure Name Priority Date/Time Associated Diagnosis Comments SURGICAL PATHOLOGY Today 04/06/2023 9: 07 EST Maternal care for transverse and oblique lie, not applicable or unspecified Anxiety disorder, unspecified Obesity complicating , third trimester Gestational diabetes mellitus in , unspecified control Encounter for supervision of normal , unspecified, unspecified trimester Gestational diabetes mellitus in , diet controlled documented in this encounter Results * SURGICAL PATHOLOGY (04/06/2023 9:07 EST) Note to Patient The following pathology results have been interpreted by your pathologist and may be available to you before your health provider has had the opportunity to review them. Please allow time for your provider to receive these results and explore management options, if applicable. 04/19/2023 10:47 [facility] Final Diagnosis A. PLACENTA, DELIVERY: 688 g, large for gestational age, term (39.4 weeks gestational age), hassan placenta Term villous morphology Focus (nodule) of chorioangioma, partially infarcted, comprising approximately 1.5% of the total placental volume Clinical history of gestational diabetes, obesity 04/19/2023 10:47 [facility] Attestation By the signature below, the attending physician certifies that they have 1) personally conducted a gross and/or microscopic examination of the described specimen(s), and/or personally interpreted the results of laboratory testing of the described specimen(s), and 2) personally rendered or confirmed the above diagnosis. 04/19/2023 10:47 [facility] at 1047 Clinical History transverse line, gestational diabetes, placental nodule; 39.4 weeks 04/19/2023 10:47 [facility] Gross Description A. Received in formalin labelled with proper patient identification (initials T, K) and placenta is an intact hassan placenta. There is a 32.0 cm in length and 1.0 cm in diameter attached, three vessel fulton-white umbilical cord. It demonstrates a eccentric insertion 6.0 cm from the nearest disc margin. There are 3 coils per 10 cm. The membranes are fulton-rivas, smooth, glistening and translucent with a marginate insertion and are received torn from the placental disc. The point of rupture indeterminate. The disk is 688.0 gm, (trimmed, formalin fixed), 21.2 x 19.0 x 2.3 cm and ovoid. The surface is blue-rivas with a dispersed vascular pattern. There is a single fulton firm nodule at the disc margin (2.3 x 2.0 x 1.8 cm). The nodule is connected to the placental disc by a thin vascular stalk. The maternal surface is red-brown with an intact basal plate and scattered adherent fulton slightly calcified granular material. There is minimal adherent blood clot. There is no indentation. The cut surface of the placental parenchyma is beefy red-brown, soft and spongy. There are no discrete lesions present. Correctional Security Officer sections are submitted as follows: BLOCK GARIBAY A1- membrane roll and cross-section of end of cord A2- membrane roll and cross-section of cord 5 cm from insertion site A3- full thickness section of placental disc adjacent to umbilical cord insertion site A4-A5- two full thickness sections of central 2/3 of placental disc A6-A7- personal banking representative nodule KARLI SOLORZANO(ASCP) 04/07/2023 8:22 04/19/2023 10:47 EST [facility] Performing Lab [facility] 04/19/2023 10:47 EST [facility] Scanned Images 04/19/2023 10:47 EST [facility] Tissue PLACENTAL STRUCTURE / Unknown 04/06/2023 9:07 EST 04/06/2023 19:45 EST Chantell Yoshi PATHOLOGY ORDERABLES Final Resul t [facility] [address] [place] [address] documented in this encounter Visit Diagnoses Diagnosis Maternal care for transverse and oblique lie, not applicable or unspecified Anxiety disorder, unspecified Obesity complicating , third trimester Gestational diabetes mellitus in , unspecified control Encounter for supervision of normal , unspecified, unspecified trimester Gestational diabetes mellitus in , diet controlled documented in this encounter Care Teams Crystal Evaluator Relationship Specialty Start Date End Date Morena Dailey MD PCP - General Internal Medicine - Primary Care 09/24/19 12/07/23 Zena Oreilly MD [address] [place] [phone] PCP - General 12/08/23 documented as of this encounter
--- OUTSIDE RECORDS SUMMARY | 2024-05-29 10:24 | XMS_ITS | Encounter Summary ---
Author Organization [facility] Address [address] [place] [address] Care Team Providers Care Director Of Market Intelligence Name Role Phone Morena Dailey MD Primary Care Provider [phone] Zena Oreilly MD Primary Care Provider + Reason for Visit * Reason Onset Date Comments Erroneous Encounter 04/10/2023 Encounter Details Date Type Department Care Team (Late st Contact Info) Description 04/10/2023 Telephone [facility] Adult Primary Care - [place] [address] [place] [address] Morena Dailey MD [address] [place], [place] [address] Erroneous Encounter Social History Tobacco Use Types Packs/Day Years [...] on file documented as of this encounter Visit Diagnoses Not on filedocumented in this encounter Care Teams Director Of Market Intelligence Relationship Specialty Start Date End Date Morena Dailey MD PCP - General Internal Medicine - Primary Care 09/24/19 12/07/23 Zena Oreilly MD [address] [place] [phone] PCP - General 12/08/23 documented as of this encounter
--- OUTSIDE RECORDS SUMMARY | 2024-05-29 10:24 | XMS_ITS | Encounter Summary ---
Author Organization [facility] Address [address] [place] [address] Care Team Providers Care Inspector Multifocal Lens Name Role Phone Morena Dailey MD Primary Care Provider [phone] Reason for Visit * Reason Comments Sore Throat Emesis Nausea Encounter Details Date Type Department Care Team (Late st Contact Info) Description 08/13/2023 9:15 EDT Walk-In [facility] [address] [place] [phone] Noe Owens, GALINA [address] [facility] [address] [place] [address] Sore throat (Primary Dx); Strep throat Social History Tobacco Use Types Packs/Day Years [...] on file documented as of this encounter Last Filed Vital Signs Vital Sign Reading Time Taken Comments Blood Pressure 122/82 08/13/2023 0942 EDT Pulse 97 08/13/2023 0942 EDT Temperature 36.9 ??C (98.4 ??F) 08/13/2023 0942 EDT Respiratory Rate 20 08/13/2023 0942 EDT Oxygen Saturation 98% 08/13/2023 0942 EDT Inhaled Oxygen Concentration - - Weight - - Height - - Body Mass Index - - documented in this encounter Patient Instructions * Attachments The following attachments cannot be sent through Care Everywhere. * Strep Throat (Gabonese) documented in this encounter Ordered Prescriptions Prescription Sig Dispense Quantity Refills Last Filled Start Date End Date penicillin v potassium (VEETID) 500 mg tabletIndications: Strep throat Take 1 Tablet by mouth 2 times daily for 10 days. 20 Tablet 08/13/2023 08/23/2023 documented in this encounter Progress Notes * Cleve Bella RN - 08/13/2023 0915 EDT CC/HPI: Patient c/o sore throat, nausea, vomiting, and sweats on/off. Symptoms began yesterday. Covid Screening: In the last 72 hours, has the patient had: New or unusual cough, shortness of breath, new nasal congestion, sore throat, fever, chills, body aches, or new loss of taste or smell without a reasonable alternative diagnosis*? (If yes, assign to [facility])- Y In the past 10 days, has the patient had a positive Covid test OR a confirmed close Covid exposure (<6ft for > 15mins in 24hr period)? (if yes, assign to AR[facility], regardless of vaccination status)-N *may be determined by RN or in discussion with available provider (MEDIA MARKETING MANAGER's and CCA's can defer to Charge Nurse to complete triage when appropriate) PCP: Mroena Dailey * Noe Owens NP - 08/13/2023 0915 EDT [facility] Chief Complaint(s): Sore Throat, Emesis, and Nausea Assessment & Plan: 1. Sore throat Rapid strep testing positive. - POCT RAPID STREP SCREEN 2. Strep throat Angelica is a pleasant 32-year-old female presenting with strep throat. Patient advised on positive RST. Advised that other symptomatic household members should be evaluated for consideration of treatment. Patient was encouraged to do supportive measures including salt water gargles, plenty of clear fluids, Ibuprofen or Tylenol as needed for pain or fever. Cepacol lozenges are also helpful for pain. Throw away toothbrush, sterilize anything shared that goes in the mouth. Probiotics with antibiotics, take with food when possible. Patient was instructed to follow up if not turning a corner with treatment in 2- 3 days, or sooner for worsening or new symptoms or concerns such as difficulty handling secretions, dehydration, breathing concerns, or severe pain. - penicillin v potassium (VEETID) 500 mg tablet; Take 1 Tablet by mouth 2 times daily for 10 days. Dispense: 20 Tablet; Refill: 0 Reason for referral to ARC: sore throat Where patient was examined: Exam room 6 HPI: Angelica presents alone to [facility] for evaluation of sore throat, vomiting, nausea since yesterday. Her 4-month-old baby has also been ill with congestion and vomiting. has been complaining of sore throat today as well. No rash. No choking/drooling. No breathing concerns. I have reviewed current problem list and current medications. ROS: See HPI for details ROS Objective: Examination: Vitals: BP 122/82 Pulse 97 Temp 36.9 ??C (98.4 ??F) (Oral) Resp 20 SpO2 98% There is no height or weight on file to calculate BMI. Physical Exam Vitals and nursing note reviewed. Constitutional: General: She is not in acute distress. Appearance: She is ill-appearing (Mild). She is not diaphoretic. HENT: Head: Atraumatic. Jaw: No trismus. Nose: No congestion. Mouth/Throat: Lips: [place]. Mouth: Mucous membranes are moist. Pharynx: Uvula midline. Pharyngeal swelling and posterior oropharyngeal erythema present. No oropharyngeal exudate. Tonsils: No tonsillar exudate. 2+ on the right. Pulmonary: Effort: Pulmonary effort is normal. Musculoskeletal: Cervical back: Normal range of motion and neck supple. Tenderness present. Lymphadenopathy: Cervical: Cervical adenopathy (AC) present. Skin: General: Skin is warm and dry. Neurological: Mental Status: She is alert. Psychiatric: Mood and Affect: Mood normal. Behavior: Behavior normal. Behavior is cooperative. Results for orders placed or performed in visit on 08/13/23 POCT RAPID STREP SCREEN Result Value Ref Range Rapid Strep Test, POC Positive (A) Negative Background Clear? Yes Control Line Present Yes Rgt A + Rgt B= Yellow: Yes Culture Sent to Lab? No Data reviewed (past results):Reviewed and/or ordered active problem list, medication list, allergies, lab results An appropriate medical screening examination was performed. The patient was assessed prior to discharge and deemed stable for discharge home. This note may be in part documented using dictation software. There may be errors, omissions or typos from use of dictation. documented in this encounter Plan of Treatment Not on file documented as of this encounter Procedures Procedure Name Priority Date/Time Associated Diagnosis Comments POCT RAPID STREP SCREEN Routine 08/13/2023 Sore throat documented in this encounter Results * (ABNORMAL) POCT RAPID STREP SCREEN (08/13/2023) [facility] Rapid Strep Test, POC Positive(A ) Negative [facility] Background Clear? Yes [facility] Control Line Present Yes [facility] Rgt A + Rgt B= Yellow: Yes [facility] Culture Sent to Lab? No [facility] Swab PHARYNGEAL STRUCTURE / Unknown 08/13/2023 us Noe Owens NP POINT OF CARE TEST ORDERABL ES Final Result [facility] documented in this encounter Visit Diagnoses Diagnosis Sore throat- Primary Acute pharyngitis Strep throat Streptococcal sore throat documented in this encounter Discontinued Medications Medication Sig Discontinue Reason Start Date End Da te amoxicillin-clavulanate (AUGMENTIN) 875-125 mg per tabletIndications:Acute non-recurrent maxillary sinusitis Take 1 Tab by mouth 2 times daily. Therapy completed 09/17/2020 08/13/2023 documented as of this encounter Care Teams Inspector Multifocal Lens Relationship Specialty Start Date End Date Morena Dailey MD PCP - General Internal Medicine - Primary Care 09/24/19 12/07/23 documented as of this encounter
--- OUTSIDE RECORDS SUMMARY | 2024-05-29 10:24 | XMS_ITS | Encounter Summary ---
Author Organization [facility] Address [address] [place] [address] Care Team Providers Care Industrial Maintenance Mechanic Name Role Phone Zena Oreilly MD Primary Care Provider + Reason for Visit * Reason Onset Date Comments Referral Related 04/24/2024 Encounter Details Date Type Department Care Team (Late st Contact Info) Description 04/24/2024 Telephone [facility] Bariatric Surgery - [address] [phone] Bariatric Surgery, Physician Hn Referral Related Social History Tobacco Use Types Packs/Day Years [...] on file documented as of this encounter Miscellaneous Notes * Telephone Encounter - Germania Ba MA - 04/24/2024 1447 EST 1st attempt. LVM to see if pt is still interested in the program. documented in this encounter Plan of Treatment Not on file documented as of this encounter Visit Diagnoses Not on filedocumented in this encounter Care Teams Industrial Maintenance Mechanic Relationship Specialty Start Date End Date Zena Oreilly MD [address] [place] [address] PCP - General 12/08/23 documented as of this encounter
--- OUTSIDE RECORDS SUMMARY | 2024-05-29 10:24 | XMS_ITS | Encounter Summary ---
Author Organization [facility] Address [address] [place] [address] Care Team Providers Care Guest Relations Executive Name Role Phone Morena Dailey MD Primary Care Provider [phone] Reason for Visit * Reason Comments Nasal Congestion Otalgia Sinus Problems Encounter Details Date Type Department Care Team ([facility] st Contact Info) Description 09/13/2023 9:30 EDT Walk-In [facility] [address] [place] [phone] Mel Conte NP [address] [facility] [address] [place] [address] Acute non-recurrent maxillary sinusitis (Primary Dx) Social History Tobacco Use Types Packs/Day Years [...] 20 09/13/2023 0915 EDT Oxygen Saturation 98% 09/13/202315 EDT Inhaled Oxygen Concentration - - Weight - - Height - - Body Mass Index - - documented in this encounter Patient Instructions * Patient Instructions* Mel Conte NP - 09/13/2023 9:30 EDT Angelica, You have a sinus infection. I am treating you with antibiotics. You should start to feel improved within 4 to 5 days. If you are not feeling somewhat better by the time you complete the antibiotics, please follow-up with us. Concerning symptoms would include significantly worsening headaches, new fevers. As we discussed, you may want to purchase some Debrox drops as you do have earwax in your right ear. documented in this encounter Ordered Prescriptions Prescription Sig Dispense Quantity Refills Last Filled Start Date End Date amoxicillin (AMOXIL) 875 mg tabletIndications: Acute non-recurrent maxillary sinusitis Take 1 Tablet by mouth 2 times daily for 7 days. 14 Tablet 09/13/2023 09/20/2023 documented in this encounter Progress Notes * Amanda Christian MA - 09/13/2023 0930 EDT CC/HPI: Pt c/o sinus pressure, R otalgia, fullness, nasal congestion, Sx started two weeks ago Covid Screening: In the last 72 hours, has the patient had: New or unusual cough, shortness of breath, new nasal congestion, sore throat, fever, chills, body aches, or new loss of taste or smell without a reasonable alternative diagnosis*? (If yes, assign to ARC) YES In the past 10 days, has the patient had a positive Covid test OR a confirmed close Covid exposure (<6ft for > 15mins in 24hr period)? (if yes, assign to ARC, regardless of vaccination status) NO *may be determined by RN or in discussion with available provider (PERINATAL NURSE's and CCA's can defer to Charge Nurse to complete triage when appropriate) PCP: Morena Dailey * Mel Conte, CABBAGE SALTER - 09/13/2023 0339 EDT [facility] Chief Complaint(s): Chief Complaint Patient presents with Nasal Congestion Otalgia Sinus Problems Assessment & Plan: 1. Acute non-recurrent maxillary sinusitis amoxicillin (AMOXIL) 875 mg tablet New Prescriptions AMOXICILLIN (AMOXIL) 875 MG TABLET Take 1 Tablet by mouth 2 times daily for 7 days. 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 school admissions representative of pressure fluid related to sinusitis - Advised that patient can get Debrox drops - Given duration of symptoms, will treat with amoxicillin twice a day x 7 days - Encouraged rest, fluids - Should improve within 4 to 5 days, if no improvement after finishing the medication, or worseningsymptoms such as severe headaches, new fevers, must follow-up for reevaluation HPI: - 2 weeks of congestion - Has been getting worse - Lots of sinus pressure, worse on right side - No sore throat - Feels lots of congestion - No cough - Having headaches - Headaches are still bending over - No fevers Nasal Congestion Associated symptoms include congestion. Pertinent negatives include no chest pain, chills, coughing, fever or headaches. Otalgia Pertinent negatives include no coughing or headaches. ROS: Review of Systems Constitutional: Negative for chills and fever. HENT: Positive for congestion, ear pain and sinus pain. Respiratory: Negative for cough, shortness of breath and wheezing. Cardiovascular: Negative for chest pain. Neurological: Negative for dizziness and headaches. Objective: Vitals and nursing notes reviewed Examination: BP 128/75 Pulse 81 Temp 36.4 ??C (97.5 ??F) (Oral) Resp 20 SpO2 98% Physical Exam Vitals reviewed. Constitutional: General: She is not in acute distress. Appearance: Normal appearance. She is not ill-appearing or toxic-appearing. HENT: Head: Normocephalic and atraumatic. Comments: + maxillary sinus tenderness to palpation, worse on R side Right Ear: There is impacted cerumen. Left Ear: Tympanic membrane, ear canal and external ear normal. Pulmonary: Effort: Pulmonary effort is normal. No respiratory distress. Musculoskeletal: General: Normal range of motion. Skin: General: Skin is warm and dry. Neurological: General: No focal deficit present. Mental Status: She is alert and oriented to person, place, and time. Mental status is at baseline. Psychiatric: Mood and Affect: Mood normal. Behavior: Behavior normal. Thought Content: Thought content normal. Judgment: Judgment normal. Data reviewed with patient (current and past results): recent [facility] visit summary reviewed, summary: 08/12 for strep pharyngitis An appropriate medical screening examination was performed. The patient was assessed prior to discharge and deemed stable for discharge home. This note may be in part documented using voice dictation software. Please forgive any errors or omissions that may result from use of dictation. documented in this encounter Plan of Treatment Not on file documented as of this encounter Visit Diagnoses Diagnosis Acute non-recurrent maxillary sinusitis- Primary documented in this encounter Care Teams Guest Relations Executive Relationship Specialty Start Date End Date Morena Dailey MD PCP - General Internal Medicine - Primary Care 09/24/19 12/07/23 documented as of this encounter
--- OUTSIDE RECORDS SUMMARY | 2024-05-29 10:24 | XMS_ITS | Encounter Summary ---
Author Organization [facility] Address [address] [place] [address] Care Team Providers Care Lens Maker Name Role Phone Morena Dailey MD Primary Care Provider Reason for Visit * Reason Onset Date Comments Medication Questions 09/15/2023 Encounter Details Date Type Department Care Team (Late st Contact Info) Description 09/15/2023 Telephone [facility] [place] [address] [place], [place] [phone] [facility] [address] [place] [address] Medication Questions Social History Tobacco Use Types Packs/Day Years [...] encounter Miscellaneous Notes * Telephone Encounter - iLa Dodd RN - 09/15/2023 1606 EDT Dozer Operator spoke with Pt. Dozer Operator confirmed with chart review/provider check that Pt should be taking amoxicillin 875mg twice daily for 7 days. With #14 tabs dispensed. According to Pt it sounds like pharmacy printed the label incorrectly on the bottle as label statestake for 14 days. Pt stated she understood the directions as discussed with travel writer and has 8 pills left. No further concerns or questions at this time. No further follow-up required by nursing. Will close TE out. * Telephone Encounter - Lia Dodd RN - 09/15/2023 1554 EDT Dozer Operator [phone][facility]. Please try again. * Telephone Encounter - Hortencia Green - 09/15/2023 1502 EDT Jessica tried to call Angelica back 3X, but cell says this # not taking calls at this time. * Telephone Encounter - Adamaris Neely NP - 09/15/2023 1125 EDT Please call back Angelica to clarify. Looks like [facility] sent in a prescription for Augmentin 875 mg twice a day for 7 days, so 14 tablets would be the correct quantity. * Telephone Encounter - Hortencia Green - 09/15/2023 1117 EDT Patient was seen few days ago: thinks prescription instructions are wrong since she only rec'd 14 pills. She goes to [facility] in [place] documented in this encounter Plan of Treatment Not on file documented as of this encounter Visit Diagnoses Not on filedocumented in this encounter Care Teams Lens Maker Relationship Specialty Start Date End Date Morena Dailey MD PCP - General Internal Medicine - Primary Care 09/24/19 12/07/23 documented as of this encounter
--- OUTSIDE RECORDS SUMMARY | 2024-05-29 10:24 | XMS_ITS | Encounter Summary ---
Author Organization [facility] Address [address] [place] [address] Care Team Providers Care Senior Qualitative Researcher Name Role Phone Morena Dailey MD Primary Care Provider [phone] Zena Oreilly MD Primary Care Provider + Encounter Details Date Type Department Care Team (Late st Contact Info) Description 09/16/2022 Lab Requisition [facility] Pathology & Laboratory Medicine - [facility] [address] [place] [address] Iris Nguyen, SUPERVISORY AIR INTERCEPT CONTROLLER [address] [place] [phone] Encounter for other general examination Social History Tobacco Use Types Packs/Day Years [...] Procedure Name Priority Date/Time Associated Diagnosis Comments PAP TEST Today 09/16/2022 9:40 EDT Encounter for other general examination CHLAMYDIA/N. GONORRHOEAE AMPLIFIED NUCLEIC ACID, THINPREP Today 09/16/2022 9:40 EDT documented in this encounter Results * PAP TEST (09/16/2022 9:40 EDT) Specimens A. Cervix and/or Endocervix , ThinPrep Imaging System with Manual Evaluation 09/27/2022 17:04 EDT [facility] Specimen Adequacy Satisfactory for Evaluation - transformation zone component present 09/27/2022 17:04 EDT [facility] General Categorization Epithelial Cell Abnormality 09/27/2022 17:04 T [facility] Descriptive Diagnosis Squamous Cell Abnormality - Low grade squamous intraepithelial lesion (LSIL). 09/27/2022 17:04 T [facility] Educational Comments [facility] recommends following the ASCCP's management guidelines which may be found at www.asccp.org 09/27/2022 17:04 [facility] Attestation By the signature below, the attending physician certifies that they have personally conducted a gross and/or microscopic examination of the described specimens and rendered or confirmed the above diagnosis. 09/27/2022 17:04 [facility] at 1704 Clinical History See below 09/28/19 17:04 [facility] Performing Lab [facility] 09/27/2022 17:04 [facility] Scanned Images 09/27/2022 17:04 [facility] Papanicolaou smear specimen (specimen) CERVIX UTERI STRUCTURE / Unknown 09/16/2022 9:40 EDT 09/19/2022 13:01 EDT us Iris Nguyen APN PATHOLOGY ORDERABLES Rin harris Result [facility] [address] [place] [address] * CHLAMYDIA/N. GONORRHOEAE AMPLIFIED RNA, THINPREP (09/16/2022 9:40 EDT) Neisseria gonorrhoeae Result Negative Negative 09/19/2022 14:21 EDT [facility] Chlamydia trachomatis Result Negative Negative 09/19/2022 14:21 EDT [facility] Papanicolaou smear specimen (specimen) CERVIX UTERI STRUCTURE / Unknown 09/16/2022 9:40 EDT 09/19/2022 8:18 EDT Iris Nguyen APN MICROBIOLOGY - GENERAL OR DERABLES Final Result [facility] [address] [place] [address] documented in this encounter Visit Diagnoses Diagnosis Encounter for other general examination documented in this encounter Care Teams Senior Qualitative Researcher Relationship Specialty Start Date End Date Morena Dailey MD PCP - General Internal Medicine - Primary Care 09/24/19 12/07/23 Zena Oreilly MD [address] [place] [id number] PCP - General 12/08/23 documented as of this encounter
--- OUTSIDE RECORDS SUMMARY | 2024-05-29 10:25 | XMS_ITS | Encounter Summary ---
Author Organization [facility] Address [address] [place] [address] Care Team Providers Care Textile Technical Officer Name Role Phone Morena Dailey MD Primary Care Provider [phone] Encounter Details Date Type Department Care Team ([facility] st Contact Info) Description 09/25/2019 Orders Only [facility] - [facility] Adult Primary Care - [place] [address] [place], [place] [address] Morena Dailey MD [address] [place], [place] [address] Acute pyelonephritis (Primary Dx) Social History Tobacco Use Types Packs/Day Years Used Date Smoking Tobacco: Never Smokeless Tobacco: Never Alcohol Use Standard Drinks/Week Comments Yes 0 (1 standard drink = 0.6 oz pur e alcohol) Comments Unknown Sex and Gender Information Value Date Recorded Sex Assigned at Not on file Legal Sex Female 9:15 EST Gender Identity Not on file Sexual Orientation Not on file documented as of this encounter Ordered Prescriptions Prescription Sig Dispense Quantity Refills Last Filled Start Date End Date levOFLOXacin (LEVAQUIN) 500 mg tabletIndications:Ac eula pyelonephritis Take 1 Tab by mouth daily. 7 Tab 09/26/2019 0 levOFLOXacin (LEVAQUIN) 500 mg tabletIndications:Ac eula pyelonephritis Take 1 Tab by mouth daily for 7 days. 7 Tab 09/25/2019 0 documented in this encounter Plan of Treatment Not on file documented as of this encounter Visit Diagnoses Diagnosis Acute pyelonephritis- Primary Acute pyelonephritis without lesion of renal medullary necrosis documented in this encounter Discontinued Medications Medication Sig Discontinue Reason Start Date End Da te levOFLOXacin (LEVAQUIN) 500 mg tabletIndications:Acute pyelonephritis Take 1 Tab by mouth daily for 7 days. 09/25/2019 09/26/2019 ondansetron (ZOFRAN) 4 mg tablet Take 1 Tab by mouth 3 times daily as needed for Nausea. Abstraction 06/04/2019 09/26/2019 documented as of this encounter Care Teams Textile Technical Officer Relationship Specialty Start Date End Date Morena Dailey MD PCP - General Internal Medicine - Primary Care 09/24/19 12/07/23 documented as of this encounter
--- OUTSIDE RECORDS SUMMARY | 2024-05-29 10:25 | XMS_ITS | Encounter Summary ---
Author Organization [facility] Address [address] [place] [address] Care Team Providers Care Distribution Coordinator Name Role Phone Morena Dailey MD Primary Care Provider [phone] Encounter Details Date Type Department Care Team ([facility] st Contact Info) Description 11/28/2019 Orders Only [facility] Adult Primary Care - [place] [address] [place], [place] [address] Morena Dailey MD [address] [place], [place] [id number] Dysuria (Primary Dx) Social History Tobacco Use Types [...] on file documented as of this encounter Progress Notes * Jenny Krishnan LPN - 11/28/2019 1522 EDT Pt was unable alexandre nitrofurantoin as it Caused GI upset, Could you order her something different , Dr Dailey is out of the office, will update her allergies. Please send to [facility] Thanks * TrevorrAndria MD - 11/28/2019 1522 EDT Her final culture came back negative, but has lots of crystals so I suspect this is just cystitis and she should take Azo (pyridium) 100 mg three times a day for 2-3 days and avoid caffeine, acid rich drinks/foods, no cranberry juice. * Jenny Krishnan LPN - 11/28/2019 1522 EDT Pt notified to provider for FYI * Morena Dailey - 11/28/2019 1529 EDT Noted documented in this encounter Plan of Treatment Not on file documented as of this encounter Visit Diagnoses Diagnosis Dysuria- Primary documented in this encounter Care Teams Distribution Coordinator Relationship Specialty Start Date End Date Morena Dailey MD PCP - General Internal Medicine - Primary Care 09/24/19 12/07/23 documented as of this encounter
--- OUTSIDE RECORDS SUMMARY | 2024-05-29 10:25 | XMS_ITS | Encounter Summary ---
Author Organization [facility] Address [address] [place] [address] Care Team Providers Care Rubber Stamp Dies Inspector Name Role Phone Yadira Toney DRYING TUMBLER OPERATOR Primary Care Provider [phone] Reason for Visit * Reason Onset Date Comments Medication Problem 09/13/2019 clarification on Medications Encounter Details Date Type Department Care Team ([facility] st Contact Info) Description 09/13/2019 Telephone [facility] - [facility] Adult Primary Care - [place] [address] [place] [address] Yadira Toney NP [address] [place], [place] [id number] Medication Problem (clarification on Medications) Social History Tobacco Use Types Packs/Day Years [...] encounter Miscellaneous Notes * Telephone Encounter - Kathleen Ortiz, ALCON - 09/13/2019 1203 EDT Called [facility] Pharm #[id number] spoke with Lori, clarified order per Dr Olvera * Telephone Encounter - Wade, Andria Spivey MD - 09/13/2019 1142 EDT Just fill the macrobid #14 as her renal ultrasound was normal, no evidence of pyelo * Telephone Encounter - Jenny Turk - 09/13/2019 0909 EDT Crista called from [facility] Clarification needed on a script that came over for this patient. Ciprofloxacin told to use for 7 days but with 6 prescribed. Also nitrofurantoin does the patient still need this? Call Crista [facility] at [phone] documented in this encounter Plan of Treatment Not on file documented as of this encounter Visit Diagnoses Not on filedocumented in this encounter Discontinued Medications Medication Sig Discontinue Reason Start Date End Da te ciprofloxacin HCl (CIPRO) 500 mg tabletIndications:Acute cystitis with hematuria Take 1 Tab by mouth 2 times daily for 7 days. Alternate therapy 09/12/2019 09/13/2019 documented as of this encounter Care Teams Rubber Stamp Dies Inspector Relationship Specialty Start Date End Date Yadira Toney NP PCP - General Internal Medicine - Primary Care 03/27/19 09/23/19 documented as of this encounter
--- OUTSIDE RECORDS SUMMARY | 2024-05-29 10:25 | XMS_ITS | Encounter Summary ---
Author Organization [facility] Address [address] [place] [address] Care Team Providers Care Technical Service Rep Name Role Phone Morena Dailey MD Primary Care Provider [phone] Encounter Details Date Type Department Care Team ([facility] st Contact Info) Description 09/25/2019 Orders Only [facility] [place] - [place] [address] [place], [place] [address] Morena Dailey MD [address] [place], [place] [address] Dysuria (Primary Dx) Social History Tobacco Use [...] as of this encounter Progress Notes * Morena Dailey - 09/25/2019 7143 EDT u documented in this encounter Plan of Treatment Scheduled Orders Name Type Priority Associated Diagnoses Orde r Schedule URINE CHEMICAL (DIP) & SEDIMENT (MICRO) WITH REFLEX TO CULTURE Lab Routine Dysuria Ordered: 09/25/2019 documented as of this encounter Visit Diagnoses Diagnosis Dysuria- Primary documented in this encounter Care Teams Technical Service Rep Relationship Specialty Start Date End Date Morena Dailey MD PCP - General Internal Medicine - Primary Care 09/24/19 12/07/23 documented as of this encounter
--- OUTSIDE RECORDS SUMMARY | 2024-05-29 10:25 | XMS_ITS | Encounter Summary ---
Author Organization [facility] Address [address] [place] [address] Care Team Providers Care Adjunct Writing Instructor Name Role Phone Yadira Toney NP Primary Care Provider [phone] Morena Dailey MD Primary Care Provider [phone] Encounter Details Date Type Department Care Team ([facility] st Contact Info) Description 09/12/2019 Orders Only [facility] Adult Primary Care - [place] [address], [place] [address] Morena Dailey MD [address] [place], [place] [phone] Acute cystitis with hematuria (Primary Dx) Social History Tobacco Use Types [...] Refills Last Filled Start Date End Date ciprofloxacin HCl (CIPRO) 500 mg tabletIndications:A cute cystitis with hematuria Take 1 Tab by mouth 2 times daily for 7 days. 6 Tab 09/12/2019 09/13/2019 documented in this encounter Plan of Treatment Not on file documented as of this encounter Visit Diagnoses Diagnosis Acute cystitis with hematuria- Primary Acute cystitis documented in this encounter Care Teams Adjunct Writing Instructor Relationship Specialty Start Date End Date Yadira Toney NP PCP - General Internal Medicine - Primary Care 03/27/19 09/23/19 Morena Dailey MD PCP - General Internal Medicine - Primary Care 09/24/19 12/07/23 documented as of this encounter
--- OUTSIDE RECORDS SUMMARY | 2024-05-29 10:25 | XMS_ITS | Encounter Summary ---
Author Organization [facility] Address [address] [place] [address] Care Team Providers Care Payment Poster Name Role Phone Morena Dailey MD Primary Care Provider [phone] Reason for Visit * Reason Comments Other urine dip per dr Ara walton Encounter Details Date Type Department Care Team ([facility] Contact Info) Description 11/28/2019 15:30 EDT Office Visit [facility] Adult Primary Care - [place] [address] [place] [id number] Nurse, [facility] [place] Urinary urgency (Primary Dx) Social History Tobacco Use Types [...] Notes * Jenny Krishnan LPN - 11/28/2019 1530 EDT Urine sent out got culture per provider documented in this encounter Plan of Treatment Not on file documented as of this encounter Procedures Procedure Name Priority Date/Time Associated Diagnosis Comments URINALYSIS/COMPLETE - [facility] Routine 11/28/2019 15:46 EDT Urinary urgency POCT URINE DIPSTICK, VISUAL READ Routine 11/28/2019 Urinary urgency documented in this encounter Results * URINALYSIS/COMPLETE - [facility] (11/28/2019 15:46 EDT) URINE APPEARANCE - [facility] Sl Cloudy CLEAR 11/28/2019 18:25 [facility] URINE AMORPH CRYSTAL - [facility] TNTC 11/28/2019 18:37 [facility] URINE BACTERIA - [facility] NEG 11/28/2019 18:37 [facility] URINE BILIRUBIN - [place] - [facility] Negative NEGATIVE 11/28/2019 18:25 [facility] URINE BLOOD - [facility] Negative NEG 11/28/2019 18:25 [facility] URINE COLOR - [facility] Yellow YELLOW 11/28/2019 18:25 [facility] URINE GLUCOSE - [place] - [facility] Negative NEGATIVE 11/28/2019 18:25 [facility] URINE KETONE - [facility] Negative NEGATIVE 11/28/2019 18:25 [facility] URINE LEUK ESTERASE - [facility] Negative NEG 11/28/2019 18:25 [facility] URINE NITRITE - [place] - [facility] Negative NEG 11/28/2019 18:25 [facility] URINE PH - [facility] 5.0 4.0 - 8.0 0 18:25 [facility] URINE PROTEIN - [place] - [facility] Negative NEG 11/28/2019 18:25 [facility] URINE RBC - [facility] NEG rbc/hpf 11/28/19 20 18:37 [facility] URCULTIF+? - [facility] No Culture Indicated 11/28/2019 18:37 [facility] Comment:CULTURE IS NOT INDIC ATED, BASED ON RESULTS OF THE URINALYSIS URINE SPECIFIC GRAVITY - [facility] >=1.030 1.001 - 1.035 11/28/2019 18:25 [facility] URINE SQUAMOUS CELLS - [facility] NEG NEG #/hpf 11/28/2019 18:37 [facility] URINE UROBILINOGEN - [place] - [facility] 0.2 0.2 - 1.0 11/28/2019 18:25 EDT [facility] URINE WBC - [facility] NEG NEG wbc/hpf 020 18:37 EDT [facility] 11/28/2019 15:4 6 EDT 11/28/2019 17:40 EDT us Morena Dailey MD CHEMISTRY & BLOOD GAS ORDERAB LES Final Result [facility] [address] [place] [address] * (ABNORMAL) POCT URINE DIPSTICK, VISUAL READ (11/28/2019) Color, UA Yellow [facility] Clarity, UA Clear [facility] Glucose, UA Negative . mg/dL [facility] Bilirubin, UA Negative . [facility] Ketones, UA Negative . mg/dL [facility] Spec Grav, UA 1.010 . [facility] Blood, UA Negative . [facility] pH, UA 5.0 4.6 - 8.0 [facility] Protein, UA Trace(A) . mg/dL [facility] Urobilinogen, UA 0.2 0.2 - 1.0 E.U./dL [facility] Nitrite, UA Negative . [facility] Leuk Esterase Negative . [facility] Comment [facility]INT [facility] Urine URINE SPECIMEN OBTAINED BY CLEAN CATCH PROCEDURE / Unknown 11/28/2019 us Morena Dailey MD POINT OF CARE TEST ORDERABLES Final Result [facility] documented in this encounter Visit Diagnoses Diagnosis Urinary urgency- Primary Urgency of urination documented in this encounter Care Teams Payment Poster Relationship Specialty Start Date End Date Morena Dailey MD PCP - General Internal Medicine - Primary Care 09/24/19 12/07/23 documented as of this encounter
--- OUTSIDE RECORDS SUMMARY | 2024-05-29 10:25 | XMS_ITS | Encounter Summary ---
Author Organization [facility] Address [address] [place] [address] Care Team Providers Care Cd Reactor Operator Head Name Role Phone Morena Dailey MD Primary Care Provider [phone] Encounter Details Date Type Department Care Team ([facility] st Contact Info) Description 03/31/2020 Orders Only [facility] Adult Primary Care - [place] [address] [place], [place] [address] Morena Dailey MD [address] [place], [place] [address] Dermatitis (Primary Dx) Social History Tobacco Use Types [...] Refills Last Filled Start Date End Date triamcinolone (KENALOG) 0.1 % creamIndications:D ermatitis Apply twice daily to affected area 80 g 2 03/31/2020 documented in this encounter Plan of Treatment Not on file documented as of this encounter Visit Diagnoses Diagnosis Dermatitis- Primary Contact dermatitis and other eczema, due to unspecified cause documented in this encounter Care Teams Cd Reactor Operator Head Relationship Specialty Start Date End Date Morena Dailey MD PCP - General Internal Medicine - Primary Care 09/24/19 12/07/23 documented as of this encounter
--- OUTSIDE RECORDS SUMMARY | 2024-05-29 10:25 | XMS_ITS | Encounter Summary ---
Author Organization [facility] Address [address] [place] [address] Care Team Providers Care Sinker Winder Name Role Phone Morena Dailey MD Primary Care Provider [phone] Encounter Details Date Type Department Care Team (Late st Contact Info) Description 09/29/2020 Results Only [facility] - Main [place] [address] [place], [place] [address] Babita Santana PA [address] [place], [place] Social History Tobacco Use Types Packs/Day Years [...] Name Priority Date/Time Associated Diagnosis Comments HEPATITIS A TOTAL ANTIBODY W REFLEX Routine 09/29/2020 9:30 EDT documented in this encounter Results * HEPATITIS A TOTAL ANTIBODY W REFLEX (09/29/2020 9:30 EDT) HEPATITIS A TOTAL AB - [facility] Negative 09/29/2020 19:51 EDT [facility] Comment: Indicates a non-reactive sample, negative for anti-HAV. Indicates that the individual has not been infected and is presumed not to be immune to HAV infection. The results of this assay can be falsely lowered due to the consumption of Biotin. 09/29/2020 9:30 EDT 09/29/2020 17:24 EDT Narrative [facility] - 09/29/2020 19:51 EDT Does PT Have a Latex Allergy? NO us Babita CALVILLO CHEMISTRY & BLOOD GAS ORDERAB LES Final Result [facility] [address] [place] [address] documented in this encounter Visit Diagnoses Not on filedocumented in this encounter Care Teams Sinker Winder Relationship Specialty Start Date End Date Morena Dailey MD PCP - General Internal Medicine - Primary Care 09/24/19 12/07/23 documented as of this encounter
--- OUTSIDE RECORDS SUMMARY | 2024-05-29 10:25 | XMS_ITS | Encounter Summary ---
Author Organization [facility] Address [address] [place] [address] Care Team Providers Care Restorative Aide Name Role Phone Morena Dailey MD Primary Care Provider [phone] Reason for Visit * Reason Onset Date Comments Medication Management 10/01/2019 Encounter Details Date Type Department Care Team (Late st Contact Info) Description 10/01/2019 Telephone [facility] [place] Primary Care - [place] [address] [place], [place] [address] Morena Dailey MD [address] [place], [place] [phone] Medication Management Social History Tobacco Use Types Packs/Day Years [...] encounter Miscellaneous Notes * Telephone Encounter - Asha Caceres - 10/01/2019 1537 EDT Angelica is going to go talk with you about this. * Telephone Encounter - Morena Dailey - 10/01/2019 1509 EDT I will need to find out more before I say OK. Can she come and speak with me? * Telephone Encounter - Asha Caceres - 10/01/2019 5438 EDT Angelica would like to know if she is able to take imodium while on her other medication? documented in this encounter Plan of Treatment Not on file documented as of this encounter Visit Diagnoses Not on filedocumented in this encounter Care Teams Restorative Aide Relationship Specialty Start Date End Date Morena Dailey MD PCP - General Internal Medicine - Primary Care 09/24/19 12/07/23 documented as of this encounter
--- OUTSIDE RECORDS SUMMARY | 2024-05-29 10:25 | XMS_ITS | Encounter Summary ---
Author Organization [facility] Address [address] [place] [address] Care Team Providers Care Digital Tech Name Role Phone Morena Dailey MD Primary Care Provider [phone] Encounter Details Date Type Department Care Team (Late st Contact Info) Description 04/12/2021 Results Only [facility] - [facility] [address] [place] [address] Libby [place], GALINA [address] [place] [address] Social History Tobacco Use Types Packs/Day Years [...] Procedure Name Priority Date/Time Associated Diagnosis Comments INFLUENZA, RSV PCR Routine 04/12/2021 12 :02 EST documented in this encounter Results * INFLUENZA, RSV PCR (04/12/2021 12:02 EST) Influenza A PCR NEGATIVE NEGATIVE [facility] Influenza B PCR NEGATIVE NEGATIVE [facility] RSV PCR NEGATIVE NEGATIVE [facility] Covid-19 PCR NEGATIVE NEGATIVE [facility] Comment: This test has been authorized by FDA under an EUA for use by authorized laboratories. Negative results do not preclude SARS-CoV-2 infection and should not be used as the sole basis for treatment or other patient management decision. Negative results must be combined with clinical observations, patient history and epidemiological information. 04/12/2021 12:0 2 EST us Libby [place] AUTOMOTIVE SERVICE MANAGER HEMATOLOGY & PF4 ORDERABLES Rin harris Result [address] [address] documented in this encounter Visit Diagnoses Not on filedocumented in this encounter Care Teams Digital Tech Relationship Specialty Start Date End Date Morena Dailey MD PCP - General Internal Medicine - Primary Care 09/24/19 12/07/23 documented as of this encounter
--- OUTSIDE RECORDS SUMMARY | 2024-05-29 10:25 | XMS_ITS | Encounter Summary ---
Author Organization [facility] Address [address] [place] [address] Care Team Providers Care Shipping Associate Name Role Phone Morena Dailey MD Primary Care Provider [phone] Reason for Visit * Reason Onset Date Comments Other 06/29/2020 Encounter Details Date Type Department Care Team (Late st Contact Info) Description 06/29/2020 Telephone [facility] [place] - [place] [address] [place], [place] [address] Morena Dailey MD [address] [place], [place] [phone] Other Social History Tobacco Use Types Packs/Day Years [...] encounter Miscellaneous Notes * Telephone Encounter - Morena Dailey - 06/30/2020 1337 EST Spoke with patient. Recommend repeating test in a week if still no duration. For now I would just wait and's see if it comes back within the next week. Patient will follow up in a week. * Telephone Encounter - CaceresAsha wilder - 06/29/2020 1342 EST Spoke with Angelica and she said that she got her COVID shot on 06/12/20. She has not gotten her period this month and that is off for her. She has taken 2 Test and both were negative. She thought she saw something about the shot possibly effecting that? She would like a call back. documented in this encounter Plan of Treatment Not on file documented as of this encounter Visit Diagnoses Not on filedocumented in this encounter Discontinued Medications Medication Sig Discontinue Reason Start Date End Da te levonorgestrel-ethinyl estradiol (NORDETTE) 0.15-0.03 mg per tablet 1 tab(s) orally once a day Abstraction 03/27/2019 06/30/2020 documented as of this encounter Care Teams Shipping Associate Relationship Specialty Start Date End Date Morena Dailey MD PCP - General Internal Medicine - Primary Care 09/24/19 12/07/23 documented as of this encounter
--- OUTSIDE RECORDS SUMMARY | 2024-05-29 10:25 | XMS_ITS | Encounter Summary ---
Author Organization [facility] Address [address] [place] [address] Care Team Providers Care Medicinal Chemist Name Role Phone Morena Dailey MD Primary Care Provider [phone] Zena Oreilly MD Primary Care Provider + Encounter Details Date Type Department Care Team (Late st Contact Info) Description 09/16/2022 Lab Requisition [facility] Pathology & Laboratory Medicine - [address] [address] Outr Resulting Lab, Provider Social History Tobacco [...] Procedure Name Priority Date/Time Associated Diagnosis Comments RUBELLA IGG ANTIBODY Routine 09/16/2022 10:10 EDT VARICELLA IGG ANTIBODY Routine 09/16/2022 10:10 EDT documented in this encounter Results * VARICELLA IGG ANTIBODY (09/16/2022 10:10 EDT) Varicella IgG Ab Positive See Note 09/19/2022 11:27 EDT [facility] Comment:Presence of detectab le Varicella Zoster virus IgG antibodies. Blood VENOUS BLOOD / Unknown 09/16/2022 10:10 EDT 09/16/2022 18:01 EDT us Provider Outr Resulting Lab IMMUNOLOGY AND SEROL OGY ORDERABLES Final Result Performing Organization Address [facility]/ZIP Co de Phone Number [facility] [address] [place] [address] * RUBELLA IGG ANTIBODY (09/16/2022 10:10 EDT) Rubella IgG Ab Positive See Note 09/19/2022 11:33 EDT [facility] Comment:Positive for IgG ant ibodies to Rubella virus. Blood VENOUS BLOOD / Unknown 09/16/2022 10:10 EDT 09/16/2022 18:01 EDT us Provider Outr Resulting Lab CHEMISTRY & BLOOD GA S ORDERABLES Final Result Performing Organization Address [facility] Co de Phone Number [facility] [address] [place] [address] documented in this encounter Visit Diagnoses Not on filedocumented in this encounter Care Teams Medicinal Chemist Relationship Specialty Start Date End Date Morena Dailey MD PCP - General Internal Medicine - Primary Care 09/24/19 12/07/23 Zena Oreilly MD [address] [place] [address] [phone] PCP - General 12/08/23 documented as of this encounter
--- OUTSIDE RECORDS SUMMARY | 2024-05-29 10:25 | XMS_ITS | Encounter Summary ---
Author Organization [facility] Address [address] [place] [address] Care Team Providers Care Instructor Kindergarten Name Role Phone Morena Dailey MD Primary Care Provider [phone] Zena Oreilly MD Primary Care Provider + Encounter Details Date Type Department Care Team (Late st Contact Info) Description 09/16/2022 Lab Requisition [facility] Pathology & Laboratory Medicine - [facility] [address] [place] [address] Outr Resulting Lab, Provider Social History Tobacco [...] Procedure Name Priority Date/Time Associated Diagnosis Comments HIV 1/2 ANTIGEN AND ANTIBODY, 4TH GENERATION Routine 09/16/2022 10:10 EDT documented in this encounter Results * HIV 1/2 ANTIGEN AND ANTIBODY, 4TH GENERATION (09/16/2022 10:10 EDT) HIV 1 and 2 Antibody/p24 Antigen, 4th Generation Negative Negative 09/17/2022 9:36 EDT [facility] Comment:If acute HIV-1 infec tion is suspected in a high risk patient, submit plasma specimen for HIV-1 RNA quantitation test. Blood VENOUS BLOOD / Unknown 09/16/2022 10:10 EDT 09/16/2022 18:01 EDT Narrative [facility] - 09/17/2022 9:36 EDT Fourth Generation assay performed on the Siemens Currentlyaur XPT. us Provider Outr Resulting Lab IMMUNOLOGY AND SEROL OGY ORDERABLES Final Result [facility] [address] [place] [address] documented in this encounter Visit Diagnoses Not on filedocumented in this encounter Care Teams Instructor Kindergarten Relationship Specialty Start Date End Date Morena Dailey MD PCP - General Internal Medicine - Primary Care 09/24/19 12/07/23 Zena Oreilly MD [address] [place] [address] [phone] PCP - General 12/08/23 documented as of this encounter
--- OUTSIDE RECORDS SUMMARY | 2024-05-29 10:25 | XMS_ITS | Encounter Summary ---
Author Organization [facility] Address [address] [place] [address] Care Team Providers Care Embedded Software Design Engineer Name Role Phone Morena Dailey MD Primary Care Provider [phone] Zena Oreilly MD Primary Care Provider + Encounter Details Date Type Department Care Team (Late st Contact Info) Description 01/08/2020 Results Only Imaging [facility] Radiology Results [address] [place], [place] [address] Morena Dailey MD [address] [place], [place] [phone] Social History Tobacco Use Types Packs/Day Years [...] as of this encounter Miscellaneous Notes * Result Encounter Note - Morena Dailey - 01/08/2020 6937 EDT Informed patient of normal results. documented in this encounter Plan of Treatment Not on file documented as of this encounter Procedures Procedure Name Priority Date/Time Associated Diagnosis Comments CT ABDOMEN PELVIS W WO CONTRAST 01/08/2020 14:58 EDT documented in this encounter Results * CT ABDOMEN PELVIS W WO CONTRAST (01/08/2020 14:58 EDT) Anatomical Region Laterality Modality Body, Abdomen, Pelvis, Abdomen and Pelvis Computed Tomography 01/08/2020 14:5 5 EDT Narrative 01/08/2020 14:58 EDT ? EXAM: CAT SCAN/ABDOMEN PELVIS W/WO CONTRA EX. D/ (1415) ? CLINICAL INFORMATION: ? N30.00 ACUTE CYSTITIS W/O HEMATURIA ? 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 FREQUENT URINARY URGENCY, FLANK PAIN ? R/O OBSTRUCTION, ABNORMAL ANATOMY ? ABDOMEN PELVIS W/WO CONTRAST ? Signs and Symptoms/Comments: ??N30.00 ACUTE CYSTITIS W/O HEMATURIA, ? 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 URGENCY, FLANK PAIN. R/O OBSTRUCTION, ABNORMAL ANATOMY. ? Comparison: Ultrasound kidney bladder on 09/12/2019. ? Technique: CT abdomen and pelvis was performed with the ? administration of intravenous contrast using split bolus technique ? (CT urogram protocol). Precontrast and postcontrast phases were ? acquired. Multiplanar reformations were performed. ? FINDINGS: ? Right urinary tract: No right-sided urinary tract calculi are ? identified. No suspicious renal mass is present. No hydronephrosis is ? present. No right-sided urinary tract filling defects are identified. ? Left urinary tract: No left-sided urinary tract calculi are ? identified. No suspicious renal mass is present. No hydronephrosis is ? present. No left-sided urinary tract filling defects are identified. ? Bladder: No bladder calculi are present. The bladder wall is ? unremarkable, however this does not exclude cystitis in the ? appropriate clinical setting. No bladder filling defect is ? identified. ? Visible Chest: The visible lung bases are unremarkable. ? Hepatobiliary: The liver is normal. No intra or extrahepatic biliary ? ductal dilatation is present. The gallbladder is normal. ? Pancreas: The pancreas is normal. ? Spleen: The spleen is normal. ? Adrenal glands: The adrenal glands are normal. ? Bowel, Peritoneal Cavity ?? Body Wall: The stomach is normal. The ? small bowel is normal without evidence of obstruction. The appendix ? is normal. The colon is unremarkable. No intraperitoneal free fluid ? or free air is present. The body wall is unremarkable. ? Pelvis/Reproductive: The pelvis and adnexa appear grossly ? unremarkable for age, however ultrasound would be superior for ? detailed assessment. ? Lymph Nodes: No enlarged abdominal or pelvic lymph nodes are present. ? PAGE 1 ? Signed Report ? (CONTINUED) ? Vascular Structures: The major vascular structures are unremarkable. ? Bones: The osseous structures are unremarkable. ? IMPRESSION: ? 1. ??No acute urinary tract findings. Of note, this does not exclude ? urinary tract infection in the appropriate clinical setting. ? 2. ??Normal kidneys without calculi, mass or hydronephrosis. ? 3. ??Unremarkable bladder. ? 4. ??Incidental findings detailed above. ? REPORT SIGNED IN OTHER VENDOR SYSTEM 01/08/2020 ?Reported By: Narinder Reinoso MD ? CC: ? Transcribed Date/Time: 01/08/2020 (0588) ? Carpenter Supervisor: HIS.[email or web address] ? Printed Date/Time: 01/08/2020 (4490) ? PAGE 2 ? Signed Report ? Procedure Note Narinder Reinoso MD - 01/08/2020 EXAM: CAT SCAN/ABDOMEN PELVIS W/WO CONTRA EX. 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 R/O OBSTRUCTION, ABNORMAL ANATOMY. Comparison: Ultrasound kidney bladder on 09/12/2019. Technique: CT abdomen and pelvis was performed with the administration of intravenous contrast using split bolus technique (CT urogram protocol). Precontrast and postcontrast phases were acquired. Multiplanar reformations were performed. FINDINGS: Right urinary tract: No right-sided urinary tract calculi are identified. No suspicious renal mass is present. No hydronephrosisis present. No right-sided urinary tract filling defects areidentified. Left urinary tract: No left-sided urinary tract calculi are identified. No suspicious renal mass is present. No hydronephrosisis present. No left-sided urinary tract filling defects areidentified. Bladder: No bladder calculi are present. The bladder wall is unremarkable, however this does not exclude cystitis in the appropriate clinical setting. No bladder filling defect is identified. Visible Chest: The visible lung bases are unremarkable. Hepatobiliary: The liver is normal. No intra or extrahepaticbiliary ductal dilatation is present. The gallbladder is normal. Pancreas: The pancreas is normal. Spleen: The spleen is normal. Adrenal glands: The adrenal glands are normal. Bowel, Peritoneal Cavity Body Wall: The stomach is normal. The small bowel is normal without evidence of obstruction. The appendix is normal. The colon is unremarkable. No intraperitoneal free fluid or free air is present. The body wall is unremarkable. Pelvis/Reproductive: The pelvis and adnexa appear grossly unremarkable for age, however ultrasound would be superior for detailed assessment. Lymph Nodes: No enlarged abdominal or pelvic lymph nodes arepresent. PAGE 1 Signed Report (CONTINUED) Vascular Structures: The major vascular structures are unremarkable. Bones: The osseous structures are unremarkable. IMPRESSION: 1. No acute urinary tract findings. Of note, this does not exclude urinary tract infection in the appropriate clinical setting. 2. Normal kidneys without calculi, mass or hydronephrosis. 3. Unremarkable bladder. 4. Incidental findings detailed above. REPORT SIGNED IN OTHER VENDOR SYSTEM 01/08/2020 Reported By: Narinder Reinoso MD CC: Transcribed Date/Time: 01/08/2020 (1458) Carpenter Supervisor: Printed Date/Time: 01/08/2020 (1458) PAGE 2 Signed Report Morena Dailey MD IMG CT ORDERABLES Final Resul t documented in this encounter Visit Diagnoses Not on filedocumented in this encounter Care Teams Embedded Software Design Engineer Relationship Specialty Start Date End Date Morena Dailey MD PCP - General Internal Medicine - Primary Care 09/24/19 12/07/23 Zena Oreilly MD [address] [place] [address] [phone] PCP - General 12/08/23 documented as of this encounter
--- OUTSIDE RECORDS SUMMARY | 2024-05-29 10:25 | XMS_ITS | Encounter Summary ---
Author Organization [facility] Address [address] [place] [address] Care Team Providers Care Knotter Name Role Phone Morena Dailey MD Primary Care Provider [phone] Reason for Visit * Reason Comments Sinus Problems Sinus pressure and p ain since Monday. Starting to get in to her chest, raising yellow sputum. Encounter Details Date Type Department Care Team (Late st Contact Info) Description 09/17/2020 8:30 EDT Telemedicine [facility] [place] [address] [place] [address] Morena Dailey MD [address] [place] [address] Acute non-recurrent maxillary sinusitis (Primary Dx) Social [...] Refills Last Filled Start Date End Date fluticasone propionate (FLONASE) 50 mcg/actuation nasal sprayIndications:A cute non-recurrent maxillary sinusitis Instill 1 Custer into both nostrils 2 times daily. 1 Bottle 2 09/17/2020 loratadine (CLARITIN) 10 mg tabletIndications: Acute non-recurrent maxillary sinusitis Take 1 Tab by mouth daily. 30 Tab 2 09/17/2020 amoxicillin-clavul anate (AUGMENTIN) 875-125 mg per tabletIndications: Acute non-recurrent maxillary sinusitis Take 1 Tab by mouth 2 times daily. 10 Tab 09/17/2020 4 documented in this encounter Progress Notes * Morena Dailey - 09/17/2020 0830 EDT [facility] [place] Today's visit was provided through telemedicine video conferencing: The location of the patient: car The location of the provider: Office Verbal consent: The concept of ???Telemedicine?? has been described to the patient.Patient has been informed of the anticipated benefits and possible risks. Patient understands the information provided regarding telemedicine, has had the opportunity to ask questions about this information, and all questions have been answered to patient???s satisfaction. Patient consents for the use of telemedicine in his/her medical care and authorizes the transmission of any relevant medical information to providers and their staff involved in patient???s medical or mental health care. Verbal consent obtained by myself or auxiliary staff: yes. Subjective: Chief Complaint(s): Sinus Problems (Sinus pressure and pain since Monday. Starting to get in to herchest, raising yellow sputum.) HPI: Angelica presents with symptoms of congestion, pressure in maxillary sinuses, headaches for the last 5to 7 days. Patient denies fever or chills. She denies sore throat, cough or shortness of breath. She tried DayQuil which did not relieve symptoms. Feels that symptoms are not improving. I have reviewed patient's tobacco history: reports that she has never smoked. She has never used smokeless tobacco. I have reviewed current problem list and current medications. ROS: Review of Systems Constitutional: Negative for chills, fever and malaise/fatigue. HENT: Positive for congestion and sinus pain. Negative for ear discharge, ear pain and sore throat. Eyes: Negative for blurred vision and double vision. Respiratory: Negative for cough and wheezing. Cardiovascular: Negative for chest pain. Musculoskeletal: Negative for joint pain. Neurological: Positive for headaches. Objective: Examination: Home Vitals: There were no vitals taken for this visit. Pertinent exam findings: appears well, non-labored breathing and mood and affect appropriate Data reviewed with patient: most recent labs reviewed: yes Assessment & Plan: 1. Acute non-recurrent maxillary sinusitis Recommend a trial of Claritin and Flonase for a few days. I will send an antibiotic but patient wasrecommended not to use it unless symptoms continue into next week. Her symptoms might be allergy related therefore Claritin and Flonase might help. Patient verbalizes understanding. Letter was written since patient has been sick at home and not able to attend work sent last week. - loratadine (CLARITIN) 10 mg tablet; Take 1 Tab by mouth daily. Dispense: 30 Tab; Refill: 2 - fluticasone propionate (FLONASE) 50 mcg/actuation nasal spray; Instill 1 Custer into both nostrils2 times daily. Dispense: 1 Bottle; Refill: 2 - amoxicillin-clavulanate (AUGMENTIN) 875-125 mg per tablet; Take 1 Tab by mouth 2 times daily. Dispense: 10 Tab; Refill: 0 A total of 15 minutes was spent on this encounter on the day of this encounter. The following individuals and their role did participate in today's encounter visit: Provider: Morena Dailey MD Patient documented in this encounter Plan of Treatment Not on file documented as of this encounter Visit Diagnoses Diagnosis Acute non-recurrent maxillary sinusitis- Primary documented in this encounter Discontinued Medications Medication Sig Discontinue Reason Start Date End Da te nitrofurantoin, macrocrystal-monohydrate, (MACROBID) 100 mg capsuleIndications:Acute cystitis without hematuria Take 1 Cap by mouth 2 times daily. Abstraction 11/29/2019 09/17/2020 documented as of this encounter Care Teams Knotter Relationship Specialty Start Date End Date Morena Dailey MD PCP - General Internal Medicine - Primary Care 09/24/19 12/07/23 documented as of this encounter
--- OUTSIDE RECORDS SUMMARY | 2024-05-29 10:25 | XMS_ITS | Encounter Summary ---
Author Organization [facility] Address [address] [place] [address] Care Team Providers Care Roof Cement And Paint Maker Name Role Phone Morena Dailey MD Primary Care Provider [phone] Reason for Visit * Reason Onset Date Comments Recurrent Urinary Tract Infection 11/29/2019 Encounter Details Date Type Department Care Team (Late st Contact Info) Description 11/29/2019 Telephone [facility] [place] [address] [place], [place] [address] Morena Dailey MD [address] [place], [place] [phone] Recurrent Urinary Tract Infection Social History Tobacco Use Types Packs/Day Years [...] Refills Last Filled Start Date End Date nitrofurantoin, macrocrystal-monohy drate, (MACROBID) 100 mg capsuleIndications: Acute cystitis without hematuria Take 1 Cap by mouth 2 times daily. 14 Cap 1 11/29/2019 09/17/2020 documented in this encounter Miscellaneous Notes * Telephone Encounter - Morena Dailey - 11/29/2019 6262 EDT Spoke with patient. She experiences frequent urinary urgency, frequency, flank pain. Frequent dysuria within past few months. UA normal. US shows right pelvocaliectasis - she agrees for further evaluation with CT urogram. documented in this encounter Plan of Treatment Not on file documented as of this encounter Visit Diagnoses Diagnosis Acute cystitis without hematuria- Primary Acute cystitis Abnormal ultrasound of kidney Nonspecific (abnormal) findings on radiological and other examination of genitourinary organs documented in this encounter Discontinued Medications Medication Sig Discontinue Reason Start Date End Da te levOFLOXacin (LEVAQUIN) 500 mg tabletIndications:Acute pyelonephritis Take 1 Tab by mouth daily. 09/26/2019 11/29/2019 documented as of this encounter Care Teams Roof Cement And Paint Maker Relationship Specialty Start Date End Date Morena Dailey MD PCP - General Internal Medicine - Primary Care 09/24/19 12/07/23 documented as of this encounter
--- OUTSIDE RECORDS SUMMARY | 2024-05-29 10:25 | XMS_ITS | Encounter Summary ---
Author Organization [facility] Address [address] [place] [address] Care Team Providers Care Public Health Dietitian Name Role Phone Yadira Toney NP Primary Care Provider [phone] Morena Dailey MD Primary Care Provider [phone] Reason for Visit * Reason Onset Date Comments Establish Care 09/12/2019 Switching Provid er Encounter Details Date Type Department Care Team ([facility] st Contact Info) Description 09/12/2019 Telephone [facility] Adult Primary Care - [address] [id number] Morena Dailey MD [address] [place], [place] [phone] Establish Care (Switching Provider) Social History Tobacco Use Types Packs/Day Years [...] * Telephone Encounter - Morena Dailey - 09/24/2019 1642 EDT . * Telephone Encounter - Yadira Toney APRN - 09/24/2019 1635 EDT That's fine * Telephone Encounter - Morena Dailey - 09/24/2019 1608 EDT Okay with me if it is okay with you Yadira? * Telephone Encounter - Asha Caceres - 09/12/2019 1233 EDT Spoke with Angelica and she would like to switch PCP's. She would like to know if she could switch to you as her PCP. Are you okay with this? documented in this encounter Plan of Treatment Not on file documented as of this encounter Visit Diagnoses Not on filedocumented in this encounter Care Teams Public Health Dietitian Relationship Specialty Start Date End Date Yadira Toney NP PCP - General Internal Medicine - Primary Care 03/27/19 09/23/19 Morena aDiley MD PCP - General Internal Medicine - Primary Care 09/24/19 12/07/23 documented as of this encounter
--- OUTSIDE RECORDS SUMMARY | 2024-05-29 10:25 | XMS_ITS | Encounter Summary ---
Author Organization [facility] Address [address] [place] [address] Care Team Providers Care Beekeeper Name Role Phone Morena Dailey MD Primary Care Provider [phone] Encounter Details Date Type Department Care Team (Late st Contact Info) Description 09/17/2020 Results Only [facility]- [facility] [phone] Alyse Eisenberg, PA [address] [place] [phone] Social History Tobacco Use Types Packs/Day [...] Name Priority Date/Time Associated Diagnosis Comments INFLUENZA, RSV, COVID PCR POCT-CV Routine 09/17/2020 9:13 EDT documented in this encounter Results * INFLUENZA, RSV, COVID PCR POCT-CV (09/17/2020 9:13 EDT) SARS-CoV-2 RT-PCR Not Detected NEGATIVE 10/02/2020 9:14 EDT [facility] Comment:THIS TEST HAS BEEN A UTHORIZED BY FDA UNDER AN EUA FOR USE BY AUTHORIZED LABORATORIES. [place] [facility] [place] NEGATIVE 10/02/2020 9:14 EDT [facility] INFLUENZA B PCR [place] [facility] [place] NEGATIVE 10/02/2020 9:14 EDT [facility] RSV PCR [place] [facility] [place] NEGATIVE 10/02/2020 9:14 EDT [facility] 09/17/2020 9:13 EDT 09/17/2020 9:13 EDT Narrative [facility] - 10/02/2020 9:14 EDT NEGATIVE RESULTS DO NOT PRECLUDE SARS-COV-2 INFECTION AND SHOULD NOT BE USED THE SOLE BASIS FOR TREATMENT OR OTHER PATIENT MANAGEMENT DECISION. NEGATIVE RESULTS MUST BE COMBINED WITH CLINICAL OBSERVATIONS, PATIENT HISTORY AND EPIDEMIOLOGICAL INFORMATION. Alyse CALVILLO CHEMISTRY & BLOOD GAS ORDERABLES Final Result Performing Organization Address City/State/[facility] Co de Phone Number [facility] [address] [place] [address] documented in this encounter Visit Diagnoses Not on filedocumented in this encounter Care Teams Beekeeper Relationship Specialty Start Date End Date Morena Dailey MD PCP - General Internal Medicine - Primary Care 09/24/19 12/07/23 documented as of this encounter
--- OUTSIDE RECORDS SUMMARY | 2024-05-29 10:25 | XMS_ITS | Encounter Summary ---
Author Organization [facility] Address [address] [place] [address] Care Team Providers Care Players Assistant Name Role Phone Morena Dailey MD Primary Care Provider [phone] Reason for Visit * Reason Onset Date Comments Other 10/28/2019 urine issues Encounter Details Date Type Department Care Team ([facility] st Contact Info) Description 10/28/2019 Telephone [facility] Adult Primary Care - [place] [address] [place], [place] [address] Morena Dailey MD [address] [place], [place] [id number] Other (urine issues) Social History Tobacco Use Types Packs/Day Years [...] * Telephone Encounter - Morena Dailey - 10/29/2019 0747 EDT Noted * Telephone Encounter - Jenny Krishnan LPN - 10/28/2019 1552 EDT Pt c/o urgency for the past few days, with low back pain. Denies fever, burning. I told her we could do urine recheck , to you as a FYI documented in this encounter Plan of Treatment Not on file documented as of this encounter Visit Diagnoses Diagnosis Urinary urgency- Primary Urgency of urination documented in this encounter Care Teams Players Assistant Relationship Specialty Start Date End Date Morena Dailey MD PCP - General Internal Medicine - Primary Care 09/24/19 12/07/23 documented as of this encounter
--- OUTSIDE RECORDS SUMMARY | 2024-05-29 10:25 | XMS_ITS | Encounter Summary ---
Author Organization [facility] Address [address] [place] [address] Care Team Providers Care Sex Crimes Detective Name Role Phone Morena Dailey MD Primary Care Provider [phone] Reason for Visit * Reason Comments Knee Pain Encounter Details Date Type Department Care Team ([facility] st Contact Info) Description 08/21/2020 8:30 EDT Office Visit [facility] Adult Primary Care - [place] [address] [place], [place] [id number] Isabella Carrion NP [address] [place] [phone] Chronic pain of right knee (Primary Dx) Social History Tobacco Use Types [...] Sign Reading Time Taken Comments Blood Pressure 128/80 08/21/2020 0940 EDT Pulse 76 08/21/2020 0940 EDT Temperature 36.6 ??C (97.9 ??F) 08/21/2020 0940 EDT Respiratory Rate 14 08/21/2020 0940 EDT Oxygen Saturation 98% 08/21/2020 0940 EDT Inhaled Oxygen Concentration - - Weight - - Height - - Body Mass Index - - documented in this encounter Progress Notes * Isabella Ashley, DEVELOPMENT CHEMIST - 08/21/2020 0830 EDT Progress Note Patient ID: Angelica Mascorro is a 29 y.o. female Date of Service: 08/21/2020 Reason for Visit: Knee Pain Assessment/Plan: 5 months of right knee pain after a fall where she sustained some valgus stress on the knee. Suspect an MCL strain. Her exam is fairly benign but considering she has had this persistent pain for manymonths I think a course of physical therapy would be helpful for her. Referral placed. Also discussed supportive care including a 2-week course of an NSAID such as ibuprofen 800 mg 3 times daily or Aleve 440 mg twice daily, icing, compression. Given Tubigrip in the office to try, though a smoker knee sleeve may be more supportive for her. She can pick one is up at a pharmacy. Diagnoses and all orders for this visit: Chronic pain of right knee - Amb Consult/Follow Up Physical Therapy; Future Subjective: HPI: PCP: Dr. Dailey RIGHT KNEE PAIN: March 2020, 5 months ago, she slept well walking home with some heavy boxes from [employer]. Her knees bent medially, under valgus stress. The right knee had a sharp pain and was painful to walk on for the next week, it was little swollen as well. It has improved but she still gets pain in the knee over the top of the patella. It can feel like it is hot when she sitting for long periods which she has to do for work. She is tried NSAIDs and ice periodically. Sometimes feels like the knee can lock up on her, it can pop and click. No pain in the hip or the ankle. ROS: See HPI Current Outpatient Medications: ??? acetaminophen (TYLENOL) 500 mg tablet, 2 tab(s) orally every 6 hours as needed, Disp: , Rfl: ??? nitrofurantoin, macrocrystal-monohydrate, (MACROBID) 100 mg capsule, Take 1 Cap by mouth 2 times daily., Disp: 14 Cap, Rfl: 1 ??? triamcinolone (KENALOG) 0.1 % cream, Apply twice daily to affected area, Disp: 80 g, Rfl: 2 No past medical history on file. No past surgical history on file. Allergies Allergen Reactions ??? Nitrofurantoin GI upset Objective: VS: BP 128/80 (BP Cuff Location: Left arm, BP Patient Position: Sitting, BP Cuff Sizes: Adult, large) Pulse 76 Temp 36.6 ??C (97.9 ??F) Resp 14 SpO2 98% Physical Exam: Gen: no acute distress, pleasant, cooperative HEENT: Head normocephalic, sclera non-icteric, features and expressions symmetrical Lungs: Unlabored breathing, no retractions. Musculoskeletal: No tenderness or swelling over right knee. Good range of motion, negative Mariza's and Apley grind test bilaterally. Skin: no lesions Neuro: alert & oriented, gait normal. Lower extremity strength 5 out of 5 bilaterally, patellarreflexes +2 bilaterally. Speech recognition software was used to complete this progress note. Typographical errors may be present. Isabella Ashley NP documented in this encounter Plan of Treatment Not on file documented as of this encounter Visit Diagnoses Diagnosis Chronic pain of right knee- Primary documented in this encounter Care Teams Sex Crimes Detective Relationship Specialty Start Date End Date Morena Dailey MD PCP - General Internal Medicine - Primary Care 09/24/19 12/07/23 documented as of this encounter
--- OUTSIDE RECORDS SUMMARY | 2024-05-29 10:25 | XMS_ITS | Encounter Summary ---
Author Organization [facility] Address [address] [place] [address] Care Team Providers Care Labor Commissioner Name Role Phone Yadira Toney PLATE AND WELD INSPECTOR Primary Care Provider [phone] Reason for Visit * Reason Onset Date Comments Other 09/12/2019 error Encounter Details Date Type Department Care Team ([facility] st Contact Info) Description 09/12/2019 Telephone [facility] Adult Primary Care - [place] [address] [place] [address] Yadira Toney NP [address] [place], [place] [phone] Other (error) Social History Tobacco Use Types Packs/Day Years [...] Telephone Encounter - Asha Caceres - 09/12/2019 1232 EDT error documented in this encounter Plan of Treatment Not on file documented as of this encounter Visit Diagnoses Not on filedocumented in this encounter Care Teams Labor Commissioner Relationship Specialty Start Date End Date Yadira Toney NP PCP - General Internal Medicine - Primary Care 03/27/19 09/23/19 documented as of this encounter
--- OUTSIDE RECORDS SUMMARY | 2024-05-29 10:25 | XMS_ITS | Encounter Summary ---
Author Organization [facility] Address [address] [place] [address] Care Team Providers Care Medical Claims Specialist Name Role Phone Morena Dailey MD Primary Care Provider [phone] Encounter Details Date Type Department Care Team (Late st Contact Info) Description 02/25/2021 Results Only [facility] [place] [address] [place], [place] [phone] Libby Franklin, GALINA [address] [place] [phone] Social History Tobacco Use Types Packs/Day [...] Associated Diagnosis Comments INFLUENZA, RSV, COVID PCR POCT[place] [place] Routine 02/25/2021 10:05 EDT documented in this encounter Results * INFLUENZA, RSV, COVID PCR PO[place] [place] (02/25/2021 10:05 EDT) SARS-CoV-2 RT-PCR Not Detected NEGATIVE 02/25/2021 10:06 EDT [facility] Comment:THIS TEST HAS BEEN A UTHORIZED BY FDA UNDER AN EUA FOR USE BY AUTHORIZED LABORATORIES. INFLUENZA A PCR - [facility] [place] NEGATIVE 02/25/2021 10:06 EDT [facility] INFLUENZA B PCR - [facility] [place] Negative NEGATIVE 02/25/2021 10:06 EDT [facility] RSV PCR - [facility] [place] Negative NEGATIVE 02/25/2021 10:06 EDT [facility] 02/25/2021 10:0 5 EDT 02/25/2021 10:05 EDT Narrative [facility] - 02/25/2021 10:06 EDT THIS TEST HAS BEEN AUTHORIZED BY FDA UNDER AN EUA FOR USE BY AUTHORIZED LABORATORIES. NEGATIVE RESULTS DO NOT PRECLUDE SARS-COV-2 INFECTION AND SHOULD NOT BE USED THE SOLE BASIS FOR TREATMENT OR OTHER PATIENT MANAGEMENT DECISION. NEGATIVE RESULTS MUST BE COMBINED WITH CLINICAL OBSERVATIONS, PATIENT HISTORY AND EPIDEMIOLOGICAL INFORMATION. Libby Franklin SPINNER OPERATOR CHEMISTRY & BLOOD GAS ORDERABLES Final Result [facility] [address] [place] [address] documented in this encounter Visit Diagnoses Not on filedocumented in this encounter Care Teams Medical Claims Specialist Relationship Specialty Start Date End Date Morena Dailey MD PCP - General Internal Medicine - Primary Care 09/24/19 12/07/23 documented as of this encounter
--- OUTSIDE RECORDS SUMMARY | 2024-05-29 10:25 | XMS_ITS | Encounter Summary ---
Author Organization [facility] Address [address] [place] [address] Care Team Providers Care Skip Operator Name Role Phone Morena Dailey MD Primary Care Provider [phone] Encounter Details Date Type Department Care Team ([facility] st Contact Info) Description 09/25/[address] [facility] Adult Primary Care - [place] [address] [place], [place] [address] Morena Dailey MD [address] [place], [place] [address] Social History Tobacco Use Types Packs/Day Years [...] Priority Date/Time Associated Diagnosis Comments URINALYSIS/COMPLETE - [facility] [place] Routine 09/25/2019 13:40 EDT URINE CULTURE IF POSITIVE Routine 09/25/2019 13:40 EDT documented in this encounter Results * URINE CULTURE IF POSITIVE (09/25/2019 13:40 EDT) USUAL UROGENITAL ROSARIO - [facility] UUV 09/27/2019 13:18 EDT [facility] COLONY COUNT 10,000-100 ,000 CFU/ML 09/27/2019 13:18 EDT [facility] Urine specimen (specimen) 09/25/2019 13:40 EDT 09/25/2019 14:53 EDT Comment:VOID us Morena Dailey MD MICROBIOLOGY - GENERAL ORDERA BLES Final Result [facility] * URINALYSIS/COMPLETE - [facility] (09/25/2019 13:40 EDT) URINE APPEARANCE - [facility] Clear CLEAR 09/25/2019 16:01 EDT [facility] URINE BACTERIA - [facility] MOD 09/25/2019 16:10 [facility] URINE BILIRUBIN - DIPST[place] - [facility] Negative NEGATIVE 09/25/2019 16:01 [facility] URINE BLOOD - [facility] Negative [facility] - [facility] Yellow YELLOW 09/25/2019 16:01 [facility] URINE GLUCOSE - [place] - [facility] Negative NEGATIVE 09/25/2019 16:01 [facility] URINE KETONE - [facility] Negative NEGATIVE 09/25/2019 16:01 [facility] URINE LEUK ESTERASE - [facility] Trace NEG 09/25/2019 16:01 [facility] URINE NITRITE - [place] - [facility] Negative NEG 09/25/2019 16:01 [facility] URINE PH - [facility] 6.5 4.0 - 8.0 0 16:01 [facility] URINE PROTEIN - [place] - [facility] Negative NEG 09/25/2019 16:01 [facility] URINE RBC - [facility] RARE rbc/hpf 09/25/19 20 16:10 [facility] URCULTIF+? - [facility] Culture Ordered 09/25/2019 16:01 [facility] URINE SPECIFIC GRAVITY - [facility] 1.020 1.001 - 1.035 09/25/2019 16:01 EDT [facility] URINE SQUAMOUS CELLS - [facility] MOD NEG #/hpf 09/25/2019 16:10 EDT [facility] URINE UROBILINOGEN - [place] - [facility] 0.2 0.2 - 1.0 09/25/2019 16:01 EDT [facility] URINE WBC - [facility] 1-4 NEG wbc/hpf 020 16:10 EDT [facility] 09/25/2019 13:4 0 EDT 09/25/2019 14:53 EDT us Morena Dailey MD CHEMISTRY & BLOOD GAS ORDERAB LES Final Result [facility] documented in this encounter Visit Diagnoses Not on filedocumented in this encounter Care Teams Skip Operator Relationship Specialty Start Date End Date Morena Dailey MD PCP - General Internal Medicine - Primary Care 09/24/19 12/07/23 documented as of this encounter
--- OUTSIDE RECORDS SUMMARY | 2024-05-29 10:26 | XMS_ITS | Encounter Summary ---
Author Organization [facility] Address [address] [place] [address] Care Team Providers Care Gear Machinist Name Role Phone Unknown, Provider MD Primary Care Provider Unava ilable Encounter Details Date Type Department Care Team (Late st Contact Info) Description 03/13/[address] [facility] - Main [address] [address] Unknown, Provider, Social History Tobacco Use Types Packs/Day Years Used Date Smoking Tobacco: Never Assessed Comments Unknown Sex and Gender Information Value Date Recorded Sex Assigned at Not on file Legal Sex Female 9:15 EST Gender Identity Not on file Sexual Orientation Not on file documented as of this encounter Plan of Treatment Not on file documented as of this encounter Procedures Procedure Name Priority Date/Time Associated Diagnosis Comments QUANTIFERON TB GOLD PLUS Routine 03/13/2018 14:18 EST VARICELLA IGG ANTIBODY Routine 03/13/2018 14:18 EST documented in this encounter Results * VARICELLA IGG ANTIBODY (03/13/2018 14:18 EST) Varicella IgG Ab Positive Negative 03/15/2018 23:27 EST [facility] Comment:Presumed immune to V aricella infection. 03/13/2018 14:1 8 EST 03/13/2018 14:18 EST us Provider Unknown IMMUNOLOGY AND SEROLOGY ARTI SAAVEDRA Final Result [facility] * QUANTIFERON TB GOLD PLUS (03/13/2018 14:18 EST) Quantiferon Interpretation Negative NEGAT 03/16/2018 15:07 [facility] Comment: Reference Range: Negative No interferon-gamma response to M. tuberculosis antigens was detected. Infection with M. tuberculosis is unlikely. A single negative result does not exclude infection with M. tuberculosis. In patients at high risk for M. tuberculosis infection, a second test should be considered in accordance with the 2017 ATS/IDSA/CDC Clinical Practive Guidelines for Diagnosis of Tuberculosis in Adults and Children [Lewinsohn DM et. al. Clin. Infect. Dis. 2017:64(2):111-115]. Results were obtained with the Qiagen QuantiFERON-TB Gold Plus ELSI. TB1 Ag minus Nil 0.00 () IU/mL 03/16/20 18 15:07 [facility] TB2 Ag minus Nil 0.00 () IU/mL 03/16/20 18 15:07 [facility] Comment: Test Performed by: [place] [address] 03/13/2018 14:1 8 EST 03/13/2018 14:18 EST us Provider Unknown CHEMISTRY & BLOOD GAS ORDERA BLES Final Result [facility] documented in this encounter Visit Diagnoses Not on filedocumented in this encounter Care Teams Gear Machinist Relationship Specialty Start Date End Date Unknown, Provider, PCP - General 06/03/14 03/26/19 documented as of this encounter
--- OUTSIDE RECORDS SUMMARY | 2024-05-29 10:26 | XMS_ITS | Encounter Summary ---
Author Organization [facility] Address [address] [place] [address] Care Team Providers Care Mobile Application Development Lead Name Role Phone Yadira Toney WILD OYSTER HARVESTER Primary Care Provider [phone] Reason for Visit * Reason Onset Date Comments Other 06/04/2019 ? food poisoning , request nausea med Encounter Details Date Type Department Care Team ([facility] st Contact Info) Description 06/04/2019 Telephone [facility] Adult Primary Care - [address] [phone] Michelle Wise RN Other (? food poisoning, request nausea med) Social History Tobacco Use Types Packs/Day Years Used Date Smoking Tobacco: Never Smokeless Tobacco: Never Comments Unknown Sex and Gender Information Value Date Recorded Sex Assigned at Not on file Legal Sex Female 9:15 EST Gender Identity Not on file Sexual Orientation Not on file documented as of this encounter Ordered Prescriptions Prescription Sig Dispense Quantity Refills Last Filled Start Date End Date ondansetron (ZOFRAN) 4 mg tablet Take 1 Tab by mouth 3 times daily as needed for Nausea. 12 Tab 06/04/2019 09/26/2019 documented in this encounter Miscellaneous Notes * Telephone Encounter - Michelle Wise RN - 06/04/2019 1028 EST CALLED IN prescription with Good RX coupon info. Notified patient * Telephone Encounter - Yadira Toney APRN - 06/04/2019 0951 EST Please send in zofran, 4mg TID prn, #12 * Telephone Encounter - Michelle Wise RN - 06/04/2019 0867 EST Patient woke with nausea and vomiting, believes ate bad chicken last evening. Vomited x2 and continues to be nauseated. Requesting something for the nausea. documented in this encounter Plan of Treatment Not on file documented as of this encounter Visit Diagnoses Not on filedocumented in this encounter Care Teams Mobile Application Development Lead Relationship Specialty Start Date End Date Yadira Toney NP PCP - General Internal Medicine - Primary Care 03/27/19 09/23/19 documented as of this encounter
--- OUTSIDE RECORDS SUMMARY | 2024-05-29 10:26 | XMS_ITS | Encounter Summary ---
Author Organization [facility] Address [address] [place] [address] Care Team Providers Care Facility Service Manager Name Role Phone Unknown, Provider Primary Care Provider Unava ilable Encounter Details Date Type Department Care Team (Late st Contact Info) Description 06/02/2014 Results Only [facility] - [facility] [address] [place], [place] [phone] Courtney Chen, [facility] [address] [place] [address] [place] [phone] Social History Tobacco Use Types Packs/Day Years [...] Name Priority Date/Time Associated Diagnosis Comments PAP TEST- RESULT ONLY Routine 06/02/2014 0:00 EST documented in this encounter Results * PAP TEST- RESULT ONLY (06/02/2014 0:00 EST) Pathology Report: CYTOPATHOLOGY REPORT Reports generated via electronic interface contain original data; however they are lacking the format of the original report. Caution should be taken when reading/interpreti ng unformatted reports. Name: ? ANGELICA LOTT ? Accession #: ? [id number] : ? 1990 (Age: 23) ??F ?Collect Date: ? 06/02/2014 Location: ? [facility] ? Receive Date: ? 06/03/2014 Provider: ?COURTNEY CHEN COUNSELOR AT LAW Copy to: ? Specimen/Source: ?Pap Test, Cervix/Endocervix, ThinPrep Imaging System with manual evaluation Last Menstrual Period: ? Hormonal/Contracep tive Status: ? Depo-Provera Other: ? Additional clinical information: 1ST PAP ? SPECIMEN ADEQUACY ? Satisfactory for Evaluation - transformation zone component present GENERAL CATEGORIZATION ? Negative for Intraepithelial Lesion or Malignancy INTERPRETATION ? Reactive cellular changes associated with inflammation present (includes repair). ? Document reviewed and electronically signed by: ? JESSIE TRAORE MD ? Report Date: ??06/12/2014 14:58 End of Report [facility] 06/02/2014 06/03/2014 us Courtney Chen COUNSELOR AT LAW PATHOLOGY ORDERABLES Final R esult [facility] [address] [place] [address] documented in this encounter Visit Diagnoses Not on filedocumented in this encounter Care Teams Facility Service Manager Relationship Specialty Start Date End Date Unknown, Provider, PCP - General 06/03/14 03/26/19 documented as of this encounter
--- OUTSIDE RECORDS SUMMARY | 2024-05-29 10:26 | XMS_ITS | Encounter Summary ---
Author Organization [facility] Address [address] [place] [address] Care Team Providers Care Pipe Cutter Name Role Phone Unknown, Provider Primary Care Provider Unava ilable Encounter Details Date Type Department Care Team (Latest Contact Info) Description 10/15/2015 11:15 EDT - 10/15/2015 23:59 EDT Hospital Encounter [address] [address] Unknown, Provider, Discharge Disposition: Home or Self Care Social History Tobacco Use Types Packs/Day Years Used Date Smoking Tobacco: Never Assessed Comments Unknown Sex and Gender Information Value Date Recorded Sex Assigned at Not on file Legal Sex Female 9:15 EST Gender Identity Not on file Sexual Orientation Not on file documented as of this encounter Discharge Disposition Disposition Code Departure Means Destination Home or Self Retirement documented in this encounter Plan of Treatment Not on file documented as of this encounter Visit Diagnoses Not on filedocumented in this encounter Care Teams Pipe Cutter Relationship Specialty Start Date End Date Unknown, ProviderMD PCP - General 06/03/14 03/26/19 documented as of this encounter
--- OUTSIDE RECORDS SUMMARY | 2024-05-29 10:26 | XMS_ITS | Encounter Summary ---
Author Organization [facility] Address [address] [place] [address] Care Team Providers Care Structural Steel Erection Supervisor Name Role Phone Yadira Toney COMPUTATIONAL PHYSICIST Primary Care Provider [phone] Reason for Visit * Reason Comments Follow-up needs to have bc ref illed and needs bp check Encounter Details Date Type Department Care Team ([facility] st Contact Info) Description 03/27/2019 13:00 EST Office Visit [facility] Adult [facility] - [place] [address] [place] [address] Yadira Toney NP [address], [place] [id number] Prehypertension (Primary Dx); Primary insomnia; control counseling; Migraine without aura and without status migrainosus, not intractable Social History Tobacco Use Types Packs/Day Years Used Date Smoking Tobacco: Never Smokeless Tobacco: Never Comments Unknown Sex and Gender Information Value Date Recorded Sex Assigned at Not on file Legal Sex Female 9:15 EST Gender Identity Not on file Sexual Orientation Not on file documented as of this encounter Last Filed Vital Signs Vital Sign Reading Time Taken Comments Blood Pressure 130/88 03/27/2019 1332 EST Pulse 80 03/27/2019 1259 EST Temperature - - Respiratory Rate - - Oxygen Saturation - - Inhaled Oxygen Concentration - - Weight 135.6 kg (299 lb) 03/27/2019 1259 EST Height 174 cm (5' 8.5) 03/27/2019 1259 EST Body Mass Index 44.8 03/27/2019 1259 EST documented in this encounter Ordered Prescriptions Prescription Sig Dispense Quantity Refills Last Filled Start Date End Date levonorgestrel-eth inyl estradiol (NORDETTE) 0.15-0.03 mg per tablet 1 tab(s) orally once a day 28 Tab 03/27/2019 06/30/2020 documented in this encounter Progress Notes * Yadira Toney, SUNG - 03/27/2019 1300 EST [facility] Primary Care Subjective: Chief Complaint(s): Follow-up (needs to have bc refilled and needs bp check ) HPI: Angelica is a 28-year-old female here today to follow-up on blood pressure and have her control refilled. Her blood pressure has been elevated for quite some time. She is not a smoker, she drinks alcohol rarely and does not do any drugs. Her diet is generally pretty good, not a lot of processed foods, regular meals, good amount of fruits and vegetables. She walks her dog 2-3 times a day, usually totaling about an hour or more a day. Her sleep is not great. She often wakes up in the middle the night has a hard time getting back to sleep. She denies any sick significant depression or anxiety, but does admit to being under a lot of stress at home, with neighbors, and has a lot of work stressors. 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 She is generally satisfied with her control pills, but reports that she feels much more emotional on these. She did try the Depo-Provera, but gained a significant amount of weight on this. She does not like the idea of the implant or the IUD, but would be willing to consider a different method. She does have migraine headaches, but no history of aura with these I have reviewed patient's tobacco history: reports that she has never smoked. She has never used smokeless tobacco. I have reviewed current problem list and current medications. ROS: Psychological ROS: negative for - anxiety or depression Respiratory ROS: no cough, shortness of breath, or wheezing Cardiovascular ROS: no chest pain or dyspnea on exertion, no edema Gastrointestinal ROS: no perceived abdominal pain, change in bowel habits, or black or bloody stools Objective: Examination: Vitals: BP 130/88 Pulse 80 Ht 174 cm (68.5) Wt (!) 135.6 kg (299 lb) BMI 44.80 kg/m?? Body mass index is 44.8 kg/m??. General appearance: alert, cooperative, mild distress, tearful at times throughout visit Lungs: clear to auscultation bilaterally Heart: regular rate and rhythm, S1, S2 normal, no murmur, click, rub or gallop Pulses: 2+ and symmetric Skin: Skin color, temperature, turgor normal. No rashes or lesions Data reviewed with patient (past results): Historical blood pressures Assessment & Plan: 1. Prehypertension Discussed contributory factors as well as family history. It seems unlikely that she will be able to make any significant dietary or activity level changes, we discussed some improvements she could make. Blood pressure elevation is likely a result of her weight and her poor sleep from increased stress levels, as well as family history. Continue to monitor blood pressure regularly 2. Migraine without aura and without status migrainosus, not intractable Controlled with OTC meds 3. Primary insomnia Discussed causes for insomnia and relaxation/mindfulness techniques that can be of benefit. Handouts given on progressive relaxation. 4. control counseling Counseled patient on alternate control methods, as with elevated blood pressure a progesterone only method is a safer option for her. At the end of our discussion, she decided that she would bewilling to try the Nexplanon. Paperwork filled out, we will schedule her for 1 month documented in this encounter Plan of Treatment Not on file documented as of this encounter Visit Diagnoses Diagnosis Prehypertension- Primary Elevated blood pressure reading without diagnosis of hypertension Primary insomnia Persistent disorder of initiating or maintaining sleep control counseling General counseling for initiation of other contraceptive measures Migraine without aura and without status migrainosus, not intractable Migraine without aura, without mention of intractable migraine without mention of status migrainosus documented in this encounter Discontinued Medications Medication Sig Discontinue Reason Start Date End Da te levonorgestrel-ethinyl estradiol (NORDETTE) 0.15-0.03 mg per tablet 1 tab(s) orally once a day Reorder 03/27/2019 documented as of this encounter Historical Medications * This list may reflect changes made after this encounter. acetaminophen (TYLENOL) 500 mg tablet 2 tab(s) orally every 6 hours as needed levonorgestrel-et hinyl estradiol (NORDETTE) 0.15-0.03 mg per tablet 1 tab(s) orally once a day 03/27/2019 added in this encounter Care Teams Structural Steel Erection Supervisor Relationship Specialty Start Date End Date Yadira Toney NP PCP - General Internal Medicine - Primary Care 03/27/19 09/23/19 documented as of this encounter
--- OUTSIDE RECORDS SUMMARY | 2024-05-29 10:26 | XMS_ITS | Encounter Summary ---
Author Organization [facility] Address [address] [place] [address] Care Team Providers Care Correctional Supervising Cook Name Role Phone Unknown, Provider Primary Care Provider Unava ilable Encounter Details Date Type Department Care Team (Late st Contact Info) Description 11/04/2016 Results Only [facility] [phone] Courtney Chen, [facility] [address] [place] [address] [place] [address] Social History Tobacco Use Types Packs/Day Years [...] Diagnosis Comments PAP TEST- RESULT ONLY Routine 11/04/2016 0:00 EDT documented in this encounter Results * PAP TEST- RESULT ONLY (11/04/2016 0:00 EDT) Pathology Report: CYTOPATHOLOGY REPORT Reports generated via electronic interface contain original data; however they are lacking the format of the original report. Caution should be taken when reading/interpreti ng unformatted reports. Name: ? ANGELICA LOTT ? Accession #: ? [id number] : ? 1990 (Age: 25) ??F ?Collect Date: ? 11/04/2016 Location: ? [facility] ? Receive Date: ? 11/07/2016 Provider: ?COURTNEY CHEN ERP BUSINESS ANALYST Copy to: ?CINDY GALINDO SHORT FILLER BUNCH MACHINE OPERATOR ? Specimen/Source: ?Pap Test, Cervix, ThinPrep Imaging System with manual evaluation Last Menstrual Period: ? 10/14/2016 Previous Gynecologic Pathology: ? ASC-US: 2016 Infection History: ? Pos for HPV ? SPECIMEN ADEQUACY ? Satisfactory for Evaluation - transformation zone component present GENERAL CATEGORIZATION ? Negative for Intraepithelial Lesion or Malignancy INTERPRETATION ? Shift in irving present suggestive of bacterial vaginosis. ? Document reviewed and electronically signed by: ? DARREN Chow(ASCP)(IAC) ? Report Date: ??11/16/2016 13:56 End of Report [facility] 11/04/2016 11/07/2016 Courtney Chen ERP BUSINESS ANALYST PATHOLOGY ORDERABLES Final R esult [facility] [address] [place] [address] documented in this encounter Visit Diagnoses Not on filedocumented in this encounter Care Teams Correctional Supervising Cook Relationship Specialty Start Date End Date Unknown, Provider, PCP - General 06/03/14 03/26/19 documented as of this encounter
--- OUTSIDE RECORDS SUMMARY | 2024-05-29 10:26 | XMS_ITS | Encounter Summary ---
Author Organization [facility] Address [address] [place] [address] Care Team Providers Care Cardiology Consultant Name Role Phone Yadira Toney NP Primary Care Provider [phone] Encounter Details Date Type Department Care Team (Late st Contact Info) Description 04/20/2019 Abstract [facility] Adult Primary Care - [address] [id number] Ambulatory, Salesperson Stereo Equipment Social History Tobacco Use Types Packs/Day Years [...] on filedocumented in this encounter Care Teams Cardiology Consultant Relationship Specialty Start Date End Date Yadira Toney NP PCP - General Internal Medicine - Primary Care 03/27/19 09/23/19 documented as of this encounter
--- OUTSIDE RECORDS SUMMARY | 2024-05-29 10:26 | XMS_ITS | Encounter Summary ---
Author Organization [facility] Address [address] [place] [address] Care Team Providers Care Hearing Impaired Itinerant Teacher Name Role Phone Unknown, Provider Primary Care Provider Unava ilable Encounter Details Date Type Department Care Team (Late st Contact Info) Description 10/15/2015 Results Only [facility] [phone] Courtney Chen, [facility] [address] [place] [address] [place] [address] Social History Tobacco Use Types [...] Diagnosis Comments PAP TEST- RESULT ONLY Routine 10/15/2015 0:00 EDT documented in this encounter Results * PAP TEST- RESULT ONLY (10/15/2015 0:00 EDT) Pathology Report: CYTOPATHOLOGY REPORT Reports generated via electronic interface contain original data; however they are lacking the format of the original report. Caution should be taken when reading/interpreti ng unformatted reports. Name: ? ANGELICA LOTT ? Accession #: ? [id number] ? : ? 1990 (Age: 24) ??F ?Collect Date: ? 10/15/2015 ? Location: ? [facility] ? Receive Date: ? 10/16/2015 ? Provider: COURTNEY CHEN MEDICAL DERMATOLOGIST Copy to: ? Final Report SPECIMEN ADEQUACY ? Satisfactory for Evaluation - transformation zone component present GENERAL CATEGORIZATION ? Epithelial Cell Abnormality INTERPRETATION ? Squamous Cell Abnormality - Atypical squamous cells, undetermined significance (ASC-US). Shift in irving present suggestive of bacterial vaginosis. EDUCATIONAL NOTES/RECOMMENDATI ONS ? [facility] recommends following ASCCP's 2012 Updated Consensus Guidelines for the Management of Abnormal Cervical Cancer Screening Tests and Cancer Precursors (JLGTD, 2013; 17(5):S1-S27). ??Consensus guidelines are available online at www.asccp.org. Last Menstrual Period: 09/22/15 Hormonal/Contracep tive status: Oral contraceptives Specimen/Source: ??Pap Test, Cervix/Endocervix, ThinPrep Imaging System with manual evaluation Document reviewed and electronically signed by: ? FAVIOLA GREY MD [facility] ? Report ??Date: 10/28/2015 17:31 HPV with Pap Test ? Date Ordered: ? 10/28/2015 ? Status: ?? Signed Out ?Date Complete: ? 10/29/2015 ? By: ??System Interface ? Date Reported: ? 10/29/2015 ? Interpretation RESULT: Positive for high or intermediate risk HPV. E6 OR E7 mRNA from one or more types of HPV types 16,18,31, 33,35,39,45,51,52, 56,58,59,66, and 68 is detected by distribution lead mediated amplification. High and intermediate risk HPV types are associated with most squamous intraepithelial lesions and cervical cancers. Comments Document reviewed and electronically signed by: ? System Interface ? Report date: 10/29/2015 By the signature above, the attending physician certifies that he/she has personally conducted a gross and/or microscopic examination of the described specimens and rendered or confirmed the above diagnosis. End of Report [facility] 10/15/2015 10/16/2015 Courtney Chen MEDICAL DERMATOLOGIST PATHOLOGY ORDERABLES Final R esult [facility] [address] [place] [address] documented in this encounter Visit Diagnoses Not on filedocumented in this encounter Care Teams Hearing Impaired Itinerant Teacher Relationship Specialty Start Date End Date Unknown, Provider, PCP - General 06/03/14 03/26/19 documented as of this encounter
--- OUTSIDE RECORDS SUMMARY | 2024-05-29 10:26 | XMS_ITS | Encounter Summary ---
Author Organization [facility] Address [address] [place] [address] Care Team Providers Care Pot Builder Name Role Phone Unknown, Provider Primary Care Provider Unava ilable Encounter Details Date Type Department Care Team (Late st Contact Info) Description 03/02/2018 Results Only [facility] [phone] Courtney Chen, [facility] [address] [place] [address] [place] [address] Social History Tobacco Use Types [...] Diagnosis Comments PAP TEST- RESULT ONLY Routine 03/02/2018 0:00 EDT documented in this encounter Results * PAP TEST- RESULT ONLY (03/02/2018 0:00 EDT) Pathology Report: CYTOPATHOLOGY REPORT Reports generated via electronic interface contain original data; however they are lacking the format of the original report. Caution should be taken when reading/interpreti ng unformatted reports. Name: ? ANGELICA LOTT ? Accession #: ? [id number] : ? 1990 (Age: 27) ??F ?Collect Date: ? 03/02/2018 Location: ? [facility] ? Receive Date: ? 03/05/2018 Provider: ?COURTNEY CHEN BLIND AIDE Copy to: ?CINDY GALINDO SHEET METAL ASSEMBLER ? Specimen/Source: ?Pap Test, Cervix, ThinPrep Imaging System with manual evaluation Last Menstrual Period: ? 01/31/18 Hormonal/Contracep tive Status: ? Oral contraceptives ? SPECIMEN ADEQUACY ? Satisfactory for Evaluation - transformation zone component present GENERAL CATEGORIZATION ? Negative for Intraepithelial Lesion or Malignancy INTERPRETATION ? Shift in irving present suggestive of bacterial vaginosis. ? Document reviewed and electronically signed by: ? Tanika Griffin, [place](ASCP) ? Report Date: ??03/13/2018 13:20 End of Report [facility] 03/02/2018 03/05/2018 us Courtney Chen BLIND AIDE PATHOLOGY ORDERABLES Final R esult [facility] [address] [place] [address] documented in this encounter Visit Diagnoses Not on filedocumented in this encounter Care Teams Pot Builder Relationship Specialty Start Date End Date Unknown, Provider, PCP - General 06/03/14 03/26/19 documented as of this encounter
--- OUTSIDE RECORDS SUMMARY | 2024-05-29 10:26 | XMS_ITS | Encounter Summary ---
Author Organization [facility] Address [address] [place] [address] Care Team Providers Care Superintendent Plant Protection Name Role Phone Yadira Toney ENVIRONMENTAL HEALTH AND SAFETY MANAGER Primary Care Provider [phone] Reason for Visit * Reason Comments Follow-up Encounter Details Date Type Department Care Team ([facility] Contact Info) Description 09/12/2019 8:00 EDT Office Visit [facility] - [place] [address], [place] [id number] Morena Weston MD [address], [place] [id number] Urinary urgency (Primary Dx); Flank pain, acute; Elevated glucose Social History Tobacco Use Types Packs/Day Years [...] Sign Reading Time Taken Comments Blood Pressure 158/100 09/12/2019 1352 EDT Pulse 80 09/12/2019 1352 EDT Temperature 37.3 ??C (99.1 ??F) 09/12/2019 1352 EDT Respiratory Rate 16 09/12/2019 1352 EDT Oxygen Saturation - - Inhaled Oxygen Concentration - - Weight - - Height - - Body Mass Index - - documented in this encounter Ordered Prescriptions Prescription Sig Dispense Quantity Refills Last Filled Start Date End Date nitrofurantoin, macrocrystal-monohy drate, (MACROBID) 100 mg capsuleIndications: Urinary urgency Take 1 Cap by mouth 2 times daily for 7 days. 14 Cap 09/12/2019 09/19/2019 documented in this encounter Progress Notes * Morena Weston - 09/12/2019 0800 EDT [facility] [place] Chief Complaint: Urinary frequency and urgency History of Present Illness: Angelica Mascorro is a 28 y.o.female presenting with complaints of over a week of urinary frequency and urgency, abdominal pain. Angelica states that she feels urgency especially with movement and getting up and feels that it is difficult for her to hold the urine. Experiences abdominal and right flank pain. Denies, fever chills or dysuria. Angelica admits to elevated blood pressure in the past. Review Of Systems: Review of Systems Constitutional: Negative for chills and fever. Genitourinary: Positive for flank pain, frequency and urgency. Negative for dysuria and hematuria. Skin: Negative for rash. Past Medical History: No past medical history on file. No past surgical history on file. Family History Problem Relation Age of Onset ??? Supraventricular tachycardia Mother ??? Heart Disease Mother ??? Hypertension Father ??? Migraines Father ??? Asthma Brother Problem List Patient Active Problem List Diagnosis ??? Prehypertension ??? Migraine without aura and without status migrainosus, not intractable ??? Primary insomnia Current Medications: Acetaminophen 500 mg tablet NORDETTE 0.15-0.03 mg per tablet Ondansetron 4 mg tablet Allergies: No Known Allergies Objective: Physical Exam: BP (!) 158/100 Pulse 80 Temp 37.3 ??C (99.1 ??F) Resp 16 General: Patient is no acute distress Abdomen: Non-distended, positive bowel sounds, soft, non-tender without guarding, rigidity or rebound. No masses or hepatosplenomegaly. Tenderness in the right flank region. Psychiatric: Alert and oriented, answers questions appropriately Assessment & Plan by Problems: 1. Urinary urgency Concern for cystitis versus pyelonephritis. Concern due to incontinence - recommend ultrasound to rule out obstructive disease. If evidence for pyelonephritis will prescribe ciprofloxacin. Further treatment plan pending results of blood work and imaging. - URINE CHEMICAL (DIP) & SEDIMENT (MICRO) WITH REFLEX TO CULTURE - POCT URINE DIPSTICK, VISUAL READ - US RENAL/BLADDER COMPLETE; Future - C REACTIVE PROTEIN; Future - SED. RATE:WESTERGREN; Future - COMPREHENSIVE METABOLIC PANEL (CMP); Future - COMPLETE BLOOD COUNT AND DIFFERENTIAL; Future 2. Flank pain, acute - US RENAL/BLADDER COMPLETE; Future - C REACTIVE PROTEIN; Future - SED. RATE:WESTERGREN; Future - COMPREHENSIVE METABOLIC PANEL (CMP); Future - COMPLETE BLOOD COUNT AND DIFFERENTIAL; Future 3. Elevated glucose - HEMOGLOBIN A1C; Future Morena Weston. , PhD documented in this encounter Miscellaneous Notes * Addendum Note - Morena Weston - 09/12/2019 0800 EDTAddended by: MORENA WESTON on: 09/12/2019 14:19 Modules accepted: Orders * Addendum Note - Kathleen Ortiz RN - 09/12/2019 0800 EDTAddended by: KATHLEEN ORTIZ on: 09/12/2019 14:31 Modules accepted: Orders * Addendum Note - Morena Weston - 09/12/2019 0800 EDTAddended by: MORENA WESTON on: 09/12/2019 14:50 Modules accepted: Orders documented in this encounter Plan of Treatment Scheduled Orders Name Type Priority Associated Diagnoses Orde r Schedule URINE CHEMICAL (DIP) & SEDIMENT (MICRO) WITH REFLEX TO CULTURE Lab Routine Urinary urgency Ordered: 09/12/2019 documented as of this encounter Procedures Procedure Name Priority Date/Time Associated Diagnosis Comments US RENAL/BLADDER COMPLETE 09/12/2019 16:50 EDT COMPLETE BLOOD COUNT WITH DIFFERENTIAL (AUTO) Routine 09/12/2019 15:35 EDT Urinary urgency SED RATE Routine 09/12/2019 15:35 EDT Urinary urgency C REACTIVE PROTEIN Routine 09/12/2019 15 :35 EDT Urinary urgency HEMOGLOBIN A1C Routine 09/12/2019 15:35 EDT Urinary urgency COMPREHENSIVE METABOLIC PANEL (CMP) Routine 09/12/2019 15:35 EDT Urinary urgency POCT URINE DIPSTICK, VISUAL READ Routine 09/12/2019 Urinary urgency documented in this encounter Results * US RENAL/BLADDER COMPLETE (09/12/2019 16:50 EDT) Anatomical Region Laterality Modality Abdomen, Body Ultrasound 09/12/2019 16:4 6 EDT Narrative 09/12/2019 16:50 EDT ? EXAM: ULTRASOUND/RENAL-KIDNEY/BLADDER COM EX. D/ (1628) ? CLINICAL INFORMATION: ? R39.15 URINARY URGENCY ? R10.9 ACUTE FLANK PAIN ? URINARY URGENCY ?? INCONTINENCE, ABDOMINAL ? FLANK PAIN, R/O OBSTRUCTION/INFECTION ? RENAL-KIDNEY/BLADDER COMPLETE ? Signs and Symptoms/Comments: ??R39.15 URINARY URGENCY, R10.9 ACUTE ? FLANK PAIN , URINARY URGENCY ?? INCONTINENCE, ABDOMINAL, ?? FLANK PAIN, ? R/O OBSTRUCTION/INFECTION ? Comparison: None. ? Technique: Ultrasound of the kidneys and bladder was performed with ? color Doppler imaging. ? FINDINGS: ? Right Kidney: The right kidney is normal in size, measuring 12.2 cm. ? No renal mass is identified. No shadowing calculi are visible. There ? is minimal right pelvocaliectasis. ? Left Kidney: The left kidney is normal in size, measuring 13.0 cm. No ? renal mass is identified. No shadowing calculi are visible. No ? hydronephrosis is present. ? Doppler: Color Doppler flow is present in both kidneys. ? Bladder: The bladder is normal in appearance. Bilateral ureteral jets ? are seen. Prevoid volume: 608.7 cc. Post void volume: ??169.4 cc. ? IMPRESSION: ? 1. Trace right pelvocaliectasis. Otherwise unremarkable study. ? 2. Post void residual 170 mL. ? REPORT SIGNED IN OTHER VENDOR SYSTEM 09/12/2019 ?Reported By: John Guerrero MD ? CC: ? Transcribed Date/Time: 09/12/2019 (1650) ? Green Jobs Trainer: ? Printed Date/Time: 09/12/2019 (1650) ? PAGE 1 ? Signed Report ? Procedure Note John Guerrero MD - 09/12/2019 EXAM: ULTRASOUND/RENAL-KIDNEY/BLADDER COM EX. D/ (1428) CLINICAL INFORMATION: R39.15 URINARY URGENCY R10.9 ACUTE FLANK PAIN URINARY URGENCY INCONTINENCE, ABDOMINAL FLANK PAIN, R/O OBSTRUCTION/INFECTION RENAL-KIDNEY/BLADDER COMPLETE Signs and Symptoms/Comments: R39.15 URINARY URGENCY, R10.9 ACUTE FLANK PAIN , URINARY URGENCY INCONTINENCE, ABDOMINAL, FLANKPAIN, R/O OBSTRUCTION/INFECTION Comparison: None. Technique: Ultrasound of the kidneys and bladder was performed with color Doppler imaging. FINDINGS: Right Kidney: The right kidney is normal in size, measuring 12.2cm. No renal mass is identified. No shadowing calculi are visible.There is minimal right pelvocaliectasis. Left Kidney: The left kidney is normal in size, measuring 13.0 cm.No renal mass is identified. No shadowing calculi are visible. No hydronephrosis is present. Doppler: Color Doppler flow is present in both kidneys. Bladder: The bladder is normal in appearance. Bilateral ureteraljets are seen. Prevoid volume: 608.7 cc. Post void volume: 169.4 cc. IMPRESSION: 1. Trace right pelvocaliectasis. Otherwise unremarkable study. 2. Post void residual 170 mL. REPORT SIGNED IN OTHER VENDOR SYSTEM 09/12/2019 Reported By: John Guerrero MD CC: Transcribed Date/Time: 09/12/2019 (1649) [employer] Trainer: Printed Date/Time: 09/12/2019 (1649) PAGE 1 Signed Report us Morena Weston MD [facility] ORDERABLES Final Resul t * HEMOGLOBIN A1C (09/12/2019 15:35 EDT) Hemoglobin A1c 5.3 4.0 - 6.0 % 09/13/2019 11:54 T [facility] Comment: > or =18 years: ??Increased risk for diabetes (prediabetes): 5.7-6.4% Diabetes: > or =6.5% Therapeutic goals for glycemic control (ADA) Adults: - Goal of therapy: <7.0% HbA1c - Action suggested: >8.0% HbA1c Pediatric patients: - Toddlers and preschoolers: <8.5% (but >7.5%) - School age (6-12 years): <8% - Adolescents and young adults (13-19 years): <7.5% Est Avg Glucose 105 mg/dL 0 11:54 EDT [facility] 09/12/2019 15:3 5 EDT 09/12/2019 15:35 EDT [facility] - 09/13/2019 11:54 EDT Does PT Have a Latex Allergy? NO Morena Weston MD CHEMISTRY & BLOOD GAS ORDERAB LES Final Result Performing Organization Address City/[facility]/ZIP Co de Phone Number [facility] * (ABNORMAL) C REACTIVE PROTEIN (09/12/2019 15:35 EDT) Pathologist [facility] [place] C-Reactive Protein 15.8(H) <10.0 mg/L 09/12/2019 17:01 [facility] 09/12/2019 15:3 5 EDT 09/12/2019 15:35 EDT [facility] - 09/12/2019 17:01 EDT Does PT Have a Latex Allergy? NO Morena Weston MD CHEMISTRY & BLOOD GAS ORDERAB LES Final Result [facility] * (ABNORMAL) COMPREHENSIVE METABOLIC PANEL (CMP) (09/12/2019 15:35 EDT) Pathologist [facility] [place] Albumin % 4.3 3.4 - 4.9 g/dL 09/12/2019 17:01 [facility] ALKALINE PHOSPHATASE - [facility] [place] 100 38 - 126 U/L 09/12/2019 17:01 [facility] BILIRUBIN TOTAL 0.2 0.2 - 1.3 mg/dL 09/12/2019 17:01 [facility] BUN - [facility] [place] 13 10 - 26 mg/dL 09/12/2019 17:01 [facility] CALCIUM - [facility] [place] 9.8 8.5 - 10.5 mg/dL 09/12/2019 17:01 [facility] Chloride 102 96 - 110 mmol/L 09/12/2019 17:01 [facility] CO2 Total 24 22 - 32 mEq/L 09/12/2019 17:01 EDT [facility] CREATININE 0.64 0.52 - 1.04 mg/dL 09/12/2019 17:01 [facility] eGFR >60 09/12/2019 17:01 [facility] Comment: Chronic renal impairment is defined as GFR <60 Multiply result by 1.210 for patients. eGFR calculated using the IDMS-traceable MDRD Study Equation. ??(effective 03/10/2014) Anion Gap 9 0 - 18 09/12/2019 17:01 [facility] GLUCOSE - [facility] [place] 97 70 - 100 mg/dL 09/12/2019 17:01 [facility] Potassium 4.5 3.5 - 5.0 mEq/L 09/12/2019 17:01 [facility] Sodium 135(L) 136 - 145 mEq/L 09/12/2019 17:01 [facility] TOTAL PROTEIN - [facility] [place] 7.5 6.2 - 8.2 gm/dL 09/12/2019 17:01 [facility] SGOT/AST - [facility] [place] 18 14 - 36 U/L 09/12/2019 17:01 [facility] SGPT/ALT - [facility] [place] 24 0 - 35 U/L 0 17:01 [facility] 09/12/2019 15:3 5 EDT 09/12/2019 15:35 EDT Narrative [facility] - 09/12/2019 17:01 EDT Does PT Have a Latex Allergy? NO us Morena Weston MD CHEMISTRY & BLOOD GAS ORDERAB LES Final Result [facility] * SED. RATE:ADALBERTOERGREN (09/12/2019 15:35 EDT) SED RATE - [facility] [place] 14 1 - 20 mm/hr 09/12/2019 16:52 EDT [facility] 09/12/2019 15:3 5 EDT 09/12/2019 15:35 EDT Narrative [facility] - 09/12/2019 16:52 EDT Does PT Have a Latex Allergy? NO us Morena Weston MD HEMATOLOGY & PF4 ORDERABLES F inal Result [facility] * COMPLETE BLOOD COUNT WITH DIFFERENTIAL (AUTO) (09/12/2019 15:35 EDT) Gran # 5.4 2.2 - 8.85 10e3/uL 09/12/2019 16:40 EDT [facility] BASO # - [facility] 0.08 0.01 - 0.11 10e/uL 09/12/2019 16:40 EDT [facility] BASO % - [facility] 1 0 - 2 % 09/12/2019 16:40 EDT [facility] EOS # - [facility] 0.17 0.03 - 0.61 10e3/ul 09/12/2019 16:40 EDT [facility] EOS % - [facility] 2 0 - 5 % 09/12/2019 16:40 EDT [facility] GRAN % - [facility] 60.3 40 - 80 % 09/12/2019 16:40 EDT [facility] HEMATOCRIT - [facility] 38.4 34.9 - 44.4 % 09/12/2019 16:40 EDT [facility] HEMOGLOBIN - [facility] 12.6 11.6 - 15.2 g/dl 09/12/2019 16:40 EDT [facility] IG# - [facility] 0.02 0 - 0.7 10e3/uL 09/12/2019 16:40 EDT [facility] IG% - [facility] 0.2 0 - 0.9 % 09/12/2019 16:40 EDT [facility] LYMPH # - [facility] 2.7 1.09 - 3.3 10e3/ul 09/12/2019 16:40 EDT [facility] LYMPH% - [facility] 29.9 20 - 40 % 09/12/2019 16:40 EDT [facility] MEAN CORPUSCULAR HGB - [facility] 27.6 26.7 - 33.3 pg 09/12/2019 16:40 [facility] MEAN CORPUSCULAR HGB CONC - [facility] [place] 32.8 32.1 - 35.9 g/dL 09/12/2019 16:40 [facility] MEAN CELL VOLUME - [facility] [place] 84.0 81 - 98 fl 09/12/2019 16:40 [facility] MONO # - [facility] [place] 0.6 0.1 - 0.8 10e3/uL 09/12/2019 16:40 [facility] MONO% - [facility] [place] 6.8 0 - 12 % 09/12/2019 16:40 [facility] PLATELET COUNT 351 141 - 377 10e3/ul 09/12/2019 16:40 [facility] RED BLOOD COUNT - [facility] [place] 4.57 3.86 - 5.04 10e3/ul 09/12/2019 16:40 [facility] RED CELL DISTRI WIDTH - [facility] [place] 12.5 <14.7 % 09/12/2019 16:40 [facility] WHITE BLOOD COUNT - [facility] [place] 8.9 4.0 - 12.4 10e3/ul 09/12/2019 16:40 [facility] 09/12/2019 15:3 5 EDT 09/12/2019 15:35 EDT Narrative [facility] - 09/12/2019 16:52 EDT Does PT Have a Latex Allergy? NO us Morena Weston MD HEMATOLOGY & PF4 ORDERABLES F inal Result [facility] * (ABNORMAL) POCT URINE DIPSTICK, VISUAL READ (09/12/2019) Color, UA Straw POINT OF C ARE [facility] Clarity, UA Clear [facility] Glucose, UA Negative . mg/dL [facility] Bilirubin, UA Negative . [facility] Ketones, UA Negative . mg/dL [facility] Spec Grav, UA 1.010 . [facility] Blood, UA Large . POINT OF C ARE [facility] pH, UA 5.0 4.6 - 8.0 POINT OF C ARE [facility] Protein, UA Trace(A) . mg/dL [facility] Urobilinogen, UA 0.2 0.2 - 1.0 E.U./dL [facility] Nitrite, UA Negative . [facility] Leuk Esterase Trace(A) . [facility] Comment pt has menses [facility] Urine URINE SPECIMEN OBTAINED BY CLEAN CATCH PROCEDURE / Unknown 09/12/2019 us Morena Weston MD POINT OF CARE TEST ORDERABLES Final Result [facility] documented in this encounter Visit Diagnoses Diagnosis Urinary urgency- Primary Urgency of urination Flank pain, acute Abdominal pain, unspecified site Elevated glucose Other abnormal glucose documented in this encounter Care Teams Superintendent Plant Protection Relationship Specialty Start Date End Date Yadira Toney NP PCP - General Internal Medicine - Primary Care 03/27/19 09/23/19 documented as of this encounter
== END 2024-05-29 10:43 ==
LOC: DI 10:23
PROVIDERS: PCP Nurse Practitioner; Visit Provider Nurse Practitioner Family
DX: R33.9 Retention of urine, unspecified (principal); R82.89 Other abnormal findings on cytological and histological examination of urine
CPT/HCPCS: 76770

== ENCOUNTER 2024-05-30 08:15 | Outpatient (CLI) | payer MEDICAID, SELFPAY ==
--- NOTE | 2024-05-30 08:30 | DI.CT_ITS ---
Exam(s) CT RENAL COLIC WO EXAM: CT RENAL COLIC WO CLINICAL HISTORY: blood in urine,r31.9. TECHNIQUE: Imaging Protocol: Axial computed tomography images with coronal and sagittal reformatted images were created and reviewed CONTRAST MATERIAL: Intravenous: none Oral: None COMPARISON: No exams were available for comparison FINDINGS: VISUALIZED LUNG BASES: No nodules nor pleural effusions evident. ABDOMEN: There is no ascites. LIVER: There are no obvious focal hepatic lesions evident of this noninfused study. GALLBLADDER/BILIARY: No obvious gallbladder pathology. CBD is not dilated. PANCREAS: No evidence of pancreatic mass nor dilatation of the pancreatic duct. SPLEEN: Spleen is not enlarged. No obvious intrasplenic lesions. ADRENALS: There are no significant adrenal masses. KIDNEYS:No cysts evident. No solid renal masses. No calculi nor hydronephrosis. . ABDOMINAL AORTA: Abdominal aorta is not enlarged. LYMPH NODES: There is no retroperitoneal nor paraaortic adenopathy. ABDOMINAL WALL: No evidence of significant anterior abdominal wall nor inguinal hernia. GI: There is no evidence of bowel obstruction, free air, nor abscess. PELVIS: LYMPH NODES: There is no intrapelvic nor inguinal adenopathy. GI: No evidence of appendicitis.No evidence of sigmoid diverticulitis. URINARY BLADDER: No calculi nor obvious masses evident REPRODUCTIVE: Uterus and adnexal regions appear unremarkable. No free fluid in the pelvis evident. OSSEOUS: No significant osseous lesions. No fractures. IMPRESSION: 1. No significant findings on this non few CT scan of the abdomen pelvis. 2. No radiopaque urinary tract calculi nor hydronephrosis RADIATION DOSE DELIVERED: Total DLP DATA REPOSITORY: All CT scans at this facility are submitted to the National Radiology Data Registry (NRDR) Dose Index Registry (DIR) with the [employer] ([employer]). RADIATION OPTIMIZATION: All CT scans at this facility use at least one of these dose optimization te chniques: automated exposure control; mA and/or kV adjustment per patient size (includes targeted exa ms where dose is matched to clinical indication); or iterative reconstruction.
== END 2024-05-30 08:35 ==
PROVIDERS: PCP Nurse Practitioner; Visit Provider Nurse Practitioner Family
DX: R31.9 Hematuria, unspecified (principal)
CPT/HCPCS: 74176

== ENCOUNTER 2024-10-02 13:18 | Outpatient (CLI) | payer MEDICAID, SELFPAY ==
--- NOTE | 2024-10-02 13:43 | DI.RAD_ITS ---
Exam(s) XR RIBS RT W PA LAT CHEST CLINICAL HISTORY: rib pain,RT SIDE, PLEURODYNIA,H/O TRAUMA TO SIDE. COMPARISON: CT CT RENAL COLIC WO from 05/30/2024 TECHNIQUE:: PA and lateral views of the chest and four views of the right ribs were performed. FINDINGS: Exam is somewhat limited by patient body habitus. LUNGS:Clear. No pleural abnormality seen. HEART: Normal size. MEDIASTINUM: Normal. BONES: No displaced rib fracture is seen. No bony destructive lesion is seen. IMPRESSION: 1. Unremarkable radiographic appearance of the right ribs. 2. No acute pulmonary findings.
== END 2024-10-02 13:38 ==
LOC: DI 13:18
PROVIDERS: PCP Nurse Practitioner; Visit Provider Nurse Practitioner Family
DX: R07.81 Pleurodynia (principal)
CPT/HCPCS: 71046; 71100

== ENCOUNTER 2024-12-19 02:45 | Emergency (ER) | payer MEDICAID, SELFPAY ==
[2024-12-19 02:58] VITALS: BP 154/103; PULSE 92; RESP 18; TEMP 36.3; O2SAT 97
[2024-12-19 03:01] VITALS: BP 154/103; PULSE 80; RESP 18; O2SAT 97
[2024-12-19 03:27] LABS: Abs Immature Grans 0.04 10^3/uL (0.0-0.06); HCT 37.4 % (36.0-46.0); HGB 12.3 g/dL (11.2-15.7); Immature Grans % 0.4 %; MCH 26.0 pg (27.0-33.0); MCHC 32.9 % (32.0-36.0); MCV 79 fL (80-95); MPV 10.1 fL (8.0-11.0); Platelet Count 306 10^3/uL (130-400); RBC 4.73 10^6/uL (3.93-5.22); RDW 13.3 % (11.7-14.6); RDW-SD 37.8 fL; WBC 10.13 10^3/uL (4.4-10.8)
[2024-12-19] MEDS: Ketorolac 15 MG/ML VIAL IVP (04:01)
[2024-12-19] MEDS: Ondansetron 4 MG/2 ML VIAL IVP (04:02)
[2024-12-19 04:03] VITALS: BP 123/83; PULSE 78; RESP 18; O2SAT 96
[2024-12-19 04:07] LABS: ALT 30 U/L (14-59); AST 13 U/L (15-37); Albumin 3.5 g/dL (3.4-5.0); Alkaline Phosphatase 112 U/L (46-116); Anion Gap 7.3 mmol/L (3-11); BUN 13 mg/dL (7-18); Bilirubin, Total 0.2 mg/dL (0.2-1.0); CO2 24.7 mmol/L (21.0-32.0); Calcium 8.8 mg/dL (8.5-10.1); Chloride 105 mmol/L (98-107); Estimated GFR 117.77 (mL/min/1.73m2); Glucose 127 mg/dL (74-106); Lipase 39 U/L (<78); Magnesium 1.8 mg/dL (1.8-2.4); Potassium 3.8 mmol/L (3.5-5.1); Sodium 137 mmol/L (136-145); Total Protein 7.1 g/dL (6.4-8.2)
[2024-12-19] MEDS: Normal Saline - Diluent 50 ML VIAL IJ (04:29)
[2024-12-19] MEDS: Omnipaque 350 MG/ML 100 ML BTL IJ (04:29)
--- NOTE | 2024-12-19 04:30 | DI.CT_ITS ---
Exam(s) CT ABDOMEN PELVIS W EXAM: CT ABDOMEN PELVIS W CLINICAL HISTORY: epigastric pain and tenderness. TECHNIQUE: Imaging Protocol: Axial computed tomography images with coronal and sagittal reformatted images were created and reviewed CONTRAST MATERIAL: Intravenous: Omnipaque 350 Contrast volume:100 ml Oral: no COMPARISON: CT CT RENAL COLIC WO from 05/30/2024 FINDINGS: ABDOMEN and PELVIS: Lung Bases: No acute findings. Liver: Mild hepatic steatosis. No suspicious mass. Gallbladder and biliary tract: No radiodense calculus. No wall thickening or pericholecystic fluid. No biliary dilation. Pancreas: Normal density. No abnormal calcifications or inflammatory process. No evidence of mass. Spleen: Normal. Kidneys: Normal size, contour and axis. No radiodense stones. No obstructive uropathy. No suspicious masses seen. Adrenal glands: No masses seen. Vasculature: Abdominal aorta non-dilated. Soft tissues: Unremarkable. Bladder: No gross wall thickening. No calculi.No focal mass. Bowel: No obstruction. Mildly dilated loops of small bowel in the right lower quadrant with thickened wall consistent with enteritis. The colon is unremarkable. Appendix normal. Peritoneal cavity: No ascites. No focal collection. No mesenteric inflammatory response. No free air. Bones: Unremarkable for age. Reproductive organs: Unremarkable. Lymph nodes: Mildly enlarged reactive lymph nodes in the right lower quadrant mesentery. IMPRESSION:: Findings consistent with enteritis involving right lower quadrant small bowel loops. The preliminary [facility] report was reviewed. RADIATION DOSE DELIVERED: 1,858.92mGy.cm Total DLP DATA REPOSITORY: All CT scans at this facility are submitted to the National Radiology Data Registry (NRDR) Dose Index Registry (DIR) with the [employer] (A[employer]). RADIATION OPTIMIZATION: All CT scans at this facility use at least one of these dose optimization techniques: automated exposure control; mA and/or kV adjustment per patient size (includes targeted exams where dose is matched to clinical indication); or iterative reconstruction.
--- NOTE | 2024-12-19 04:40 | DI.[facility]_ITS ---
PROCEDURE INFORMATION: Exam: CT Abdomen And Pelvis With Contrast Exam date and time: 12/19/2024 4:09 AM Age: 34 years old Clinical indication: Abdominal pain; Epigastric pain and tenderness TECHNIQUE: Imaging protocol: Computed tomography of the abdomen and pelvis with contrast. Radiation optimization: All CT scans at this facility use at least one of these dose optimization techniques: automated exposure control; mA and/or kV adjustment per patient size (includes targeted exams where dose is matched to clinical indication); or iterative reconstruction. Contrast material: [id number]; Contrast volume: 100 ml; Contrast route: INTRAVENOUS (IV); COMPARISON: CT RENAL COLIC WO 05/30/2024 8:25 AM FINDINGS: Liver: No focal hepatic lesion identified. Gallbladder and biliary ducts: No radiodense gallbladder calculi seen. Pancreas: No CT evidence for acute pancreatitis. Spleen: Borderline splenomegaly. Adrenal glands: No mass. Kidneys and ureters: No hydronephrosis or evidence for pyelonephritis. Stomach and bowel: No intestinal obstruction is evident. No intestinal obstruction is evident. Fluid in nondilated small bowel, nonspecific. Areas of mild small bowel thickening consistent with enteritis. Fluid in the colon. Appendix: No evidence of appendicitis. Intraperitoneal space: Small amount of pelvic fluid. Vasculature: No abdominal aortic aneurysm. Lymph nodes: Nonspecific mesenteric and retroperitoneal lymph nodes. Urinary bladder: No acute findings. Reproductive: Central hypodensity in the uterus, likely secretory phase endometrium. Small low-density foci in the ovaries attributed to physiologic change/follicles. Bones/joints: No pertinent acute abnormality seen. Soft tissues: No pertinent acute abnormality seen. IMPRESSION: 1. Findings consistent with enteritis. 2. Additional findings as above. Dictated and Authenticated by: Shannon Ferrer MD. Orderin Melissa Oliveros MD
--- NOTE | 2024-12-19 04:53 | ED.GENADUL_ITS ---
Discharge Plan Disposition Patient Disposition: Home Condition: Good Discharge Details Clinical Impression: Gastroenteritis Primary Care Provider: Bess Day ED Provider: Arlin Torres Discharge Instructions Instructions: Viral gastroenteritis in adults Additional Instructions: Call your primary care doctor in the morning to schedule an appointment for within 72 hours to followup on your visit here. Tylenol and ibuprofen over the counter for pain; follow the directions on the bottle. Return to the emergency department for new or worsening symptoms including new/different/worse pain, inability to keep down fluids, feeling like you are going pass out, blood in your stool, fever, or if you have any other concerns. HPI General Mode of arrival: ambulatory . Date/Time Provider Initiated Documentation: 12/19/24 03:06 . Limitations to Documentation: no limitations . Information obtained by: patient . HPI Narrative: 34yo F presenting with abdominal pain. Onset around 0 this evening with associated nausea, no vomiting. Pain is crampy and comes in waves. Has been having diarrhea that started around the same time, 3 episodes of loose non- bloody stool since then. No fevers, dysuria, hematuria, flank pain, chest pain, shortness of breath, or other concerns. Otherwise in her usual state of health. Related Data Allergies Allergy/AdvReac Type Severity Reaction Status Date / Time strawberry Allergy Intermediate Hives Verified 12/19/24 03:06 General Stated Complaint: Abd Prob MARIAH: 3 Review of Systems Narrative: see HPI Exam Narrative Exam Narrative: General: Alert, well appearing, well nourished, in no acute distress. Head: Normocephalic, atraumatic Neck: Trachea midline, ?Neck supple. ENT: ?MMM.? No oropharygeal lesions or exudate. Cardiac: ?RRR, no murmurs appreciated Resp: No respiratory distress. CTAB. Abd: ?Soft, non-distended,minimally tender to epigastric region with no rebound or guarding. Negative blankenship's. : ?No suprapubic tenderness. No CVA tenderness. Extremities: ?No deformities.? No peripheral edema. Neurologic: GCS 15. ? Moves all extremities freely against gravity Course Vital Signs Vital signs: Vital Signs Temperature 36.3 C L 12/19/24 02:58 Pulse 92 H 12/19/24 02:58 Respiratory Rate 18 12/19/24 02:58 Blood Pressure 154/103 H 12/19/24 02:58 Pulse Oximetry 97 12/19/24 02:58 Temperature 36.3 C L 12/19/24 02:58 Temperature Source Tympanic 12/19/24 02:58 Pulse 78 12/19/24 04:03 Respiratory Rate 18 12/19/24 04:03 Blood Pressure 123/83 12/19/24 04:03 Blood Pressure Mean 96 12/19/24 04:03 Pulse Oximetry 96 12/19/24 04:03 Oxygen Delivery Method Room Air 12/19/24 04:03 Oxygen Flow Rate 0 12/19/24 04:03 Pain Level 10 12/19/24 02:58 Lab/Test Results Lab/Test Results: Laboratory Tests Range/Units 12/19/24 03:11 WBC (4.4-10.8) 10^3/uL 10.13 RBC (3.93-5.22) 10^6/uL 4.73 Hgb (11.2-15.7) g/dL 12.3 Hct (36.0-46.0) % 37.4 MCV (80-95) fL 79 L MCH (27.0-33.0) pg 26.0 L MCHC (32.0-36.0) % 32.9 RDW (11.7-14.6) % 13.3 Plt Count (130-400) 10^3/uL 306 MPV (8.0-11.0) fL 10.1 Immature Gran % % 0.4 Neutrophils % % 72.9 Lymphocytes % % 19.2 Monocytes % % 5.1 Eosinophils % % 1.6 Basophils % % 0.8 Nucleated RBC % (0.0-0.3) % 0.0 Absolute Neutrophils (1.2-6.7) 10^3/uL 7.38 H Absolute Lymphocytes (1.2-3.4) 10^3/uL 1.95 Absolute Monocytes (0.1-0.8) 10^3/uL 0.52 Absolute Eosinophils (0.0-0.7) 10^3/uL 0.16 Absolute Basophils (0.0-0.2) 10^3/uL 0.08 VBG Lactate (<or=2.0) mmol/L 1.0 Sodium (136-145) mmol/L 137 Potassium (3.5-5.1) mmol/L 3.8 Chloride (98-107) mmol/L 105 Carbon Dioxide (21.0-32.0) mmol/L 24.7 Anion Gap (3-11) mmol/L 7.3 BUN (7-18) mg/dL 13 Creatinine (0.55-1.02) mg/dL 0.7 Est GFR (CKD-EPI 2020) (mL/min/1.73m2) 117.77 Glucose (74-106) mg/dL 127 H Calcium (8.5-10.1) mg/dL 8.8 Magnesium (1.8-2.4) mg/dL 1.8 Total Bilirubin (0.2-1.0) mg/dL 0.2 AST (15-37) U/L 13 L ALT (14-59) U/L 30 Alkaline Phosphatase (46-116) U/L 112 Total Protein (6.4-8.2) g/dL 7.1 Albumin (3.4-5.0) g/dL 3.5 Lipase (<78) U/L 39 POC Urine Test Start: 12/19/24 03:23 Freq: Status: Complete Protocol: Document 12/19/24 03:23 ANTHONY (Rec: 12/19/24 03:23 ANTHONY [id number]) Test(Urine)-POC POC- Test( Negative urine) POC- Test(urine) Negative Medical Decision Making 34yo F presenting with crampy epigastric abdominal pain with associated nausea and nonbloody diarrhea, onset roughly 2130 this afternoon. Vital signs reassuring on arrival, some epigastric tenderness on exam with no rebound or gua rding. Negative blankenship's. No lower abdominal tenderness to suggest pelvic/ovarian pathology. Will treat pain with toradol and nasuea with zofran while waiting results of workup. Labs reviewed as below, CBC reassuring with no leukocytosis or anemia, CMP with no actionable abnormalities, Mg normal, lipase not suggestive of pancreatitis, lactate normal, upreg negative. CT abd pelvis independenly reviewed; no obstruction or free fluid on my view, radiology read consistent with enteritis. No gallbladder findings to suggest cholelithiasis/cholecystitis (though US better modality). On reassessment she reports her pain has improved. PO challenged and tolerated well. Overall picture most consistent with gastroenteritits (likely viral). Advised symptomatic treatment at home; offered zofran prescription which patient declined. Discharged home to followup with primary care doctor; all questions were answered and she is in full agreement with the plan. Lab Data Lab results reviewed: Yes I reviewed the patient's lab results. Labs: Laboratory Tests Range/Units 12/19/24 03:11 WBC (4.4-10.8) 10^3/uL 10.13 RBC (3.93-5.22) 10^6/uL 4.73 Hgb (11.2-15.7) g/dL 12.3 Hct (36.0-46.0) % 37.4 MCV (80-95) fL 79 L MCH (27.0-33.0) pg 26.0 L MCHC (32.0-36.0) % 32.9 RDW (11.7-14.6) % 13.3 Plt Count (130-400) 10^3/uL 306 MPV (8.0-11.0) fL 10.1 Immature Gran % % 0.4 Neutrophils % % 72.9 Lymphocytes % % 19.2 Monocytes % % 5.1 Eosinophils % % 1.6 Basophils % % 0.8 Nucleated RBC % (0.0-0.3) % 0.0 Absolute Neutrophils (1.2-6.7) 10^3/uL 7.38 H Absolute Lymphocytes (1.2-3.4) 10^3/uL 1.95 Absolute Monocytes (0.1-0.8) 10^3/uL 0.52 Absolute Eosinophils (0.0-0.7) 10^3/uL 0.16 Absolute Basophils (0.0-0.2) 10^3/uL 0.08 VBG Lactate (<or=2.0) mmol/L 1.0 Sodium (136-145) mmol/L 137 Potassium (3.5-5.1) mmol/L 3.8 Chloride (98-107) mmol/L 105 Carbon Dioxide (21.0-32.0) mmol/L 24.7 Anion Gap (3-11) mmol/L 7.3 BUN (7-18) mg/dL 13 Creatinine (0.55-1.02) mg/dL 0.7 Est GFR (CKD-EPI 2020) (mL/min/1.73m2) 117.77 Glucose (74-106) mg/dL 127 H Calcium (8.5-10.1) mg/dL 8.8 Magnesium (1.8-2.4) mg/dL 1.8 Total Bilirubin (0.2-1.0) mg/dL 0.2 AST (15-37) U/L 13 L ALT (14-59) U/L 30 Alkaline Phosphatase (46-116) U/L 112 Total Protein (6.4-8.2) g/dL 7.1 Albumin (3.4-5.0) g/dL 3.5 Lipase (<78) U/L 39 Quality:SDOH Health Related Social Needs: Health related social needs details NA PFSH All Active Problems (Updated 12/19/24 @ 05:05 by Arlin Torres MD) Gastroenteritis (Acute) Rib pain on right side (Acute) Blood in urine (Acute) Urinary frequency (Acute) Incomplete emptying of bladder (Acute) Pelvic pain (Acute) Status post primary low transverse section (Acute) Anxiety (Chronic) LGSIL on Pap smear of cervix (Acute) Medical History History of gestational diabetes Migraine aura without headache Adult BMI > 30 Family History Father Essential hypertension Brother Asthma Grandfather , Lung CA? at age 70. No problems noted. 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 [employer] What is your relationship status?: living with partner Panel score (0-1 are the most socially isolated patients): 1 What type of physical activity do you participate in: none Seatbelt use: always Drive intox or ride w/intox chassis driver: No Working smoke detector in home: Yes Fire extinguisher in home: Yes Carbon monox detector in home: Yes Do you feel safe at home: Yes Do you feel safe in your relationship?: Yes History History 2 Para 1 Hx # Term Pregnancies 1 Multiple births 0 Hx # Pregnancies 0 Ectopic pregnancies 0 AB induced 1 Hx Number of Living Children 1 AB spontaneous 0 Past Pregnancies Del. Date GA/Weeks # Preg Succ Route Wgt Sex Labor Lgth Anesth esia Location Prov Complic 01/12/22 6 No 04/06/23 39 No Yes 3854.996 g Female K J Delivery Date: 01/12/22 Last Updated by: Iris Nguyen CNM ETOP W/O complications
[2024-12-19 04:57] VITALS: BP 115/71; PULSE 77; RESP 18; O2SAT 99
[2024-12-19 05:35] VITALS: BP 124/84; PULSE 81; RESP 18; O2SAT 98
== END 2024-12-19 05:36 | disposition home or self-care (01) ==
PROVIDERS: Emergency Provider Student in an Organized Health Care Education/Training Program; PCP Nurse Practitioner
DX: K52.9 Noninfective gastroenteritis and colitis, unspecified (principal); R11.0 Nausea
CPT/HCPCS: 99285; 99284; 81025; 96374; 96375; 80053; 83690; 74177; 83605; 83735; 85025; J1885; J2405; J3490

== ENCOUNTER 2024-12-19 15:50 | Outpatient (CLI) | payer MEDICAID, SELFPAY ==
--- NOTE | 2024-12-19 09:45 | DI.US_ITS ---
Exam(s) US ABDOMEN LIMITED EXAM: US ABDOMEN LIMITED CLINICAL HISTORY: R/O cholecystitis K52.9 GASTROENTERITIS COLITIS TECHNIQUE: Ultrasound of the right upper quadrant performed using standard protocol. COMPARISON: CT CT ABDOMEN PELVIS W from 12/19/2024 FINDINGS: Exam is limited by the patient's body habitus. LIVER: Mildly enlarged at 19 cm length. Mildly increased echogenicity consistent with mild hepatic steatosis. No focal liver lesions are seen. GALLBLADDER: No evidence of cholelithiasis. No evidence of wall thickening. No pericholecystic fluid identified. PAZ'S SIGN: The patient was tender while scanning over the right upper quadrant. BILIARY SYSTEM: No intrahepatic or extrahepatic biliary ductal dilation. RIGHT KIDNEY: Normal size. No evidence of renal calculi. No evidence of hydronephrosis. No suspicious renal mass. No cyst identified. PANCREAS: Normal where visualized. ABDOMINAL AORTA AND IVC: Visualized portions normal caliber. ASCITES: None seen. IMPRESSION: Mild hepatic steatosis. No evidence of gallstones or gallbladder wall thickening. No biliary dilatation. DATA REPOSITORY:
== END 2024-12-19 16:10 ==
LOC: DI 15:52
PROVIDERS: PCP Nurse Practitioner; Visit Provider Family Medicine
DX: K76.0 Fatty (change of) liver, not elsewhere classified (principal)
CPT/HCPCS: 76705

== ENCOUNTER → 2025-03-27 05:54 | Outpatient (CLI) | payer MEDICAID, SELFPAY ==
--- NOTE | 2025-03-27 06:45 | DI.RAD_ITS ---
Exam(s) XR KNEE RT 3V AP,LAT,BRANNON EXAM: XR KNEE RT 3V AP,LAT,BRANNON CLINICAL HISTORY: fall on ice some time ago,rt knee pain,[id number]. TECHNIQUE: 2D digital imaging was performed. COMPARISON: No exams were available for comparison FINDINGS: 3 views No evidence of fracture nor prominent joint effusion. Bone density normal. No osseous lesions. No degenerative changes. No osteochondral defects. IMPRESSION: No acute osseous findings in the right knee. DATA REPOSITORY: RADIATION DOSE DELIVERED:
== END ==
LOC: DI 05:54
PROVIDERS: PCP Nurse Practitioner; Visit Provider Nurse Practitioner Family
DX: M25.561 Pain in right knee (principal); G89.29 Other chronic pain
CPT/HCPCS: 73562

== ENCOUNTER 2025-04-10 14:01 | Outpatient (REF) | payer MEDICAID, SELFPAY | END 2025-04-10 14:02 | disposition home or self-care (01) | LOC: LBN 14:01 | PROVIDERS: PCP Nurse Practitioner; Visit Provider Obstetrics & Gynecology | DX: R30.0 Dysuria (principal) | CPT/HCPCS: 87077; 87086; 87186 ==